=== PATIENT | male | born 1955 | race Caucasian/White ===

== ENCOUNTER 2016-08-06 13:18 | Inpatient (IN) | payer OTHER ==
[~2016-08-06] VITALS: Ht 174 cm; Wt 100.2 kg
[2016-08-06] VITALS (7 sets, daily range): BP systolic 194–237; BP diastolic 90–114; PULSE 71–91; RESP 16–20; O2SAT 94–97
[~2016-08-06 13:18] MED LIST: AMLO5TAB2 PO; ASPI325T32 PO; CLOP75TA28 PO; LEVO300T5 PO; METO50TA3 PO
[2016-08-06] MEDS ORDERED: Ondansetron 2 mg/mL 2 mL Inj ONE (13:33)
[2016-08-06 13:52] LABS: BASOPHILS % (AUTO) 0.6 % (0-3); EOSINOPHILS % (AUTO) 0.6 % (0-5); Mean Corpuscular Hemoglobin 27.5 pg (27.0-35.0); Mean Corpuscular Volume 81.7 fL (81-100); NEUTROPHILS % (AUTO) 83.1 % (40-74); Platelet Count 396 bil/L (150-400)
[2016-08-06 14:12] LABS: INR 0.88 ratio
[2016-08-06 14:21] LABS: TROPONIN T 0.025 ug/L (0.0-0.011)
[2016-08-06 14:33] LABS: Magnesium 1.9 mg/dL (1.6-2.6)
[2016-08-06] MEDS ORDERED: 0.9% Sodium Chloride 1,000 ML ONE (15:39)
--- NOTE | 2016-08-06 15:47 | ED.REPORT ---
HPI-Neurologic Deficit Date of Service Aug 06, 2016 ED Provider: Freddy Wilson MD Pt is a 60 year old male with a hx of DM II, HTN, CAD and a recent stroke 6 weeks ago presenting to the ED complaining of dizziness sudden onset last night at 1800. The pt reports that the symptoms began when he stood up after a bowel movement. Associated symptoms include nausea, feeling "unbalanced", clear thoughts but staggered actions, "separate" vision, diffuse weakness and numbness , fatigue. Denies headache, ringing in his ears. The dizziness is exacerbated by looking up and is constant and unchanged since onset. He denies taking Aspirin, glyburide or Metformin. The pt was supposed to have a follow up appointment with Dr. Rodriguez yesterday but missed the appointment. The pt is currently on glipizide 5mg, levothyroxine 300 mcg, Lipitor 80mg, metoprolol tartrate 50mg, OneTouch Ultra Blue In Vitro Strip Plavix 75 mg tablet. Nursing Notes Stated Complaint: DIZZY/NAUSEA Chief Complaint: General Complaint Nursing Notes Reviewed: Yes Allergies: Coded Allergies: Penicillins (Verified Allergy, Mild, Rash, 05/28/16) ONLY IN COMBINATION WITH CODEINE codeine (Verified Allergy, Mild, Rash, 05/28/16) ONLY IN COMBINATION WITH PCN Scheduled Amlodipine (Amlodipine) 5 Mg Tablet 5 MG PO DAILY Aspirin (Aspirin) 325 Mg Tablet 325 MG PO DAILY Clopidogrel (Clopidogrel) 75 Mg Tablet 75 MG PO DAILY Levothyroxine (Levothyroxine) 300 Mcg Tablet 300 MCG PO DAILY Metoprolol Tartrate (Metoprolol Tartrate) 50 Mg Tablet 50 MG PO BID General Time Seen by Provider: 15:31 Chief Complaint Off balance Hx Obtained From: Patient, Son Arrived By: Walk-in Sudden in Onset?: Yes Onset Occurred: Yesterday Symptom Duration: Since onset Progression Since Onset: Unchanged, Constant Severity: Current: No pain currently Severity: Maximum: No pain Associated with: Reports: Balance problem, Nausea, Vomiting, Weakness, Denies: Headache Related History: Reports: CVA/TIA, Diabetes mellitus Recent Healthcare: No recent hospitalization, Recent doctor visit Similar Sx Previous: Yes Risk Factors NIH Stroke Scale Level of Consciousness: Not alert, arousable (1) Ask Month & Age: Both questions right (0) Open/Close Eyes/Hand Force Adjustment Supervisor: Performs both tasks (0) Horizontal EO Movements: Partial gaze palsy (1) Visual Delgado: No visual loss (0) Facial Palsy: Normal symmetry (0) Right Arm Motor Drift (10s): No drift 10 sec (0) Left Arm Motor Drift (10s): No drift 10 sec (0) Right Leg Motor Drift (5s): No drift 5 sec (0) Left Leg Motor Drift (5s): No drift 5 sec (0) Limb Ataxia FNF/Heel-Wiley: Ataxia in 1 limb (1) Sensation (Arms/Legs/Face): Pinprick less sharp (1) Language Aphasia: No aphasia, normal (0) Dysarthria: No dysarthria, normal (0) Extinction/Inattention: Inatt visual/tactile (1) NIHSS Score: 5 Time NIHSS Performed: 15:35 CVA Risk Stratification Age >60 Diabetes mellitus EtOH use Hypertension Prior CVA/TIA Smoking RF Statements: Risk factors reviewed Past Medical History Past Medical History Stenosis of right internal carotid artery Left ventricular hypertrophy Previously on plavix Previous CVA (July 2014) with no neuro deficits [place] - in 2009 Peripheral vascular disease Hyper thyroidism Hyperglycemia ESRD Reports: Coronary artery disease, Diabetes mellitus, Hypertension Past Surgical History Stents Reports: Angioplasty, Appendectomy Smoking History Current Every Day Smoker Social History Alcohol Use: "Social" Ambulatory Status Independent Review of Systems Constitutional: Reports: Fatigue GI: Reports: Nausea, Vomiting Neurologic: Reports: Dizziness, Numbness, Weakness, Denies: Headache Complete sys rev & neg: except as marked. Ears / Nose / Throat: Denies: Ear ringing bilateral Physical Exam Initial Vital Signs Vital Signs (First) Date Time Temp Pulse Resp B/P Pulse Ox O2 Delivery O2 Flow Rate FiO2 08/06/16 13:22 36.3 87 16 197/106 97 08/06/16 15:25 Room Air Initial VS: Reviewed ENT: Mucous membranes moist, Conjunctiva normal, No scleral icterus Neck: Supple, Non-tender, Full range of motion Abdomen / GI: Soft, Non-tender, No guarding, No rebound, No distention Extremities: Vascular intact, Neuro intact, No swelling, No tenderness Skin: Warm, Dry, No cyanosis Psychiatric: Mood/affect normal, Behavior normal, Normal thought content General/Constitutional: Awake, Alert Respiratory / Chest: Atraumatic, Breath sounds NL, Breath sounds = bilat, No respiratory distress Cardiovascular: Regular rhythm, No gallop, No murmurs, No rubs Bilateral chronic bruit. Neurologic: Oriented X3, Speech NL Rotatory nystagmus. Medial deviation of left eye. No visual field cuts. Ataxia right hand only. Right hand, left face, left leg not as sensitive. Interpretation & Diagnostics Lab Results Interpretation Result Diagram: 08/06/16 1340 08/06/16 1340 Test 08/06/16 13:40 08/06/16 13:46 White Blood Count 11.5th/mm3 (3.8-10.1) Red Blood Count 5.75mil/mm3 (4.40-5.80) Hemoglobin 15.8g/dL (13.8-17.2) Hematocrit 47.0% (41.0-50.0) Mean Corpuscular Volume 81.7fL (81-100) Mean Corpuscular Hemoglobin 27.5pg (27.0-35.0) Mean Corpuscular Hemoglobin Concent 33.6% (32.0-37.0) Red Cell Distribution Width 14.8% (12.3-15.4) Platelet Count 396bil/L (150-400) Neutrophils (%) (Auto) 83.1% (40-74) Lymphocytes (%) (Auto) 10.4% (14-46) Monocytes (%) (Auto) 5.0% (4-12) Eosinophils (%) (Auto) 0.6% (0-5) Basophils (%) (Auto) 0.6% (0-3) Prothrombin Time 9.4sec (8.1-12.5) Prothromb Time International Ratio 0.88ratio Sodium Level 138mEq/L (134-144) Potassium Level 5.0mEq/L (3.5-5.2) Chloride Level 101mEq/L (97-108) Carbon Dioxide Level 21mmol/L (18-29) Blood Urea Nitrogen 53mg/dL (8-27) Creatinine 3.35mg/dL (0.76-1.27) Estimat Glomerular Filtration Rate 20mL/min (>59) Glucose Level 250mg/dL (60-99) Lactic Acid Level 1.7mmol/L (0.4-2.0) Calcium Level 9.4mg/dL (8.5-10.1) Magnesium Level 1.9mg/dL (1.6-2.6) Total Bilirubin 0.2mg/dL (0.0-1.2) Aspartate Amino Transf (AST/SGOT) 24U/L (0-50) Alanine Aminotransferase (ALT/SGPT) 41U/L (0-44) Alkaline Phosphatase 98U/L (25-160) Total Protein 7.5g/dL (6.4-8.4) Albumin 3.6g/dL (3.4-5.0) ECG Interpretation ECG Interpretation: Nonspecific T wave abnormalities. No change from May,. Time: 14:20 Interpreted by: ED physician Normal ECG Interpretation: Normal rate (74), Normal sinus rhythm CT Head Interpretation IMPRESSION: No acute intracranial abnormality. Dictated by: Cassidy Anderson M.D. on 08/06/2016 at 16:26 Study: Head CT no contrast Interpretation / Wet Read by: Interpret - Radiologist Re-Eval/Medical Decision Med Decision/Clinical Course 60-year-old smoker with a known intracranial vascular narrowing presents with disequilibrium and abnormalities of extraocular movements consistent with a posterior circulation stroke. He is already on Plavix. On the advice of neurology we have added aspirin. He continues to use tobacco. The patient is outside the time window for TPA or intravascular intervention. He will be admitted to the hospitalist service with neurology consultation. We re-started asprin. Re-Evaluation/Progress : Time of Eval: 18:33 Patient Status: Condition improved Re-Evaluation/Progress Note: Pt agrees with plan for admission. Consultation #1: Referral / Consult Name: Jose Ren MD Consulted With: Neurology Call Returned at: 16:32 Machine Grinder: Agrees with plan Consultation #2: Referral / Consult Name: Senait Adkins MD Consulted With: Hospitalist Call Returned at: 18:12 Machine Grinder: Will see patient, Agrees with plan, Accepts admit Counseled Regarding: Diagnosis, Lab results, Need for follow-up, When/why to return to ED Discharge & Departure Impression: Primary Impression: CVA (cerebral vascular accident) CVA mechanism: unspecified Qualified Code: I63.9 - Cerebral infarction, unspecified Disposition: ADMITTED TO HOSPITAL Discharge Condition All VS Reviewed: Yes Condition: Improved Referrals: Servando Rodriguez MD (PCP) Scribe Attestation Portions of this note were transcribed by Lena Meza. I, Dr. Wilson personally performed the history, physical exam and medical decision-making; I reviewed and confirmed the accuracy of the information in the transcribed note. Signed by : Felicita Laboy, 08/06/16 and 1833. copies to: Servando Rodriguez MD, Freddy Almeida MD Aug 06, 2016 15:47 LENA MEZA Aug 06, 2016 15:59
[2016-08-06] MEDS ORDERED: Ondansetron 2 mg/mL 2 mL Inj IVPUSH ONE (15:50)
--- NOTE | 2016-08-06 16:28 | DRSVH ---
PROCEDURE: CT BRAIN WITHOUT CONTRAST ([id number]) INDICATIONS: dizziness, vomiting TECHNIQUE: Noncontrast 4.5 mm thick angled axial sections acquired from the foramen magnum to the vertex, with c oronal reformats. COMPARISON: [facility], CT, CT BRAIN WO CON, 05/28/2016, 7:43. [facility], CT, BRAIN W/O CONTRAST, 07/13/2014, 18:02. FINDINGS: Image quality: Excellent. CSF spaces: Basal cisterns are patent. No extra-axial fluid collections. The ventricles are symmet aleksandr in size and shape. Brain: No intracranial bleeds or masses. There is cerebral volume loss for age, with resultant vent ricular and sulcal prominence. There are periventricular and deep white matter chronic small vessel ischemic changes. There is intracranial internal carotid artery atherosclerosis. Skull and face: Calvarium and visualized facial bones appear intact, without suspicious lesions. Sinuses: Visualized sinuses and mastoids are clear. IMPRESSION: No acute intracranial abnormality. Dictated by: Cassidy Anderson M.D. on 08/06/2016 at 16:26 Approved by: Cassidy Anderson M.D. on 08/06/2016 at 16:26
[2016-08-06] MEDS ORDERED: Alum-Mag Hydrox-Simeth 30 mL Suspension PO PRN (18:35)
[2016-08-06] MEDS ORDERED: Promethazine Inj 12.5 MG in 0.9% Sodium Chloride 50 ML IV PRN (20:10)
[2016-08-06] MEDS ORDERED: 0.9% Sodium Chloride 250 ML ONE (20:32)
[2016-08-06] MEDS: Labetalol 5 mg/mL 4 mL Inj IVPUSH PRN (21:54)
[2016-08-06] MEDS ORDERED: 0.9% Sodium Chloride 1,000 ML IV ONE ×2 (22:35)
--- NOTE | 2016-08-06 22:56 | PCM.HPMED ---
Subjective Date of Service Aug 06, 2016 Primary Provider: Admitting Physician: Senait Adkins MD Primary Care Physician: Servando Rodriguez MD Attending Physician: Senait Adkins MD Chief Complaint: Left sided weakness and dysequilibrium History of Present Illness: 60 year old male with a PMH significant for hypertension, CAD s/p 4 stents, PVD , bilateral carotid stenosis, and prior CVA presents with left sided weakness and 24h of ongoing dizziness with N/V. Pt states that he was feeling alright until he had a bm and arose from the toilet. Upon standing he became dizzy and his left leg was unable to support him and he leans to the left. He states that he also had left arm weakness. He has experienced this in the past with hx of CVA and recent TIA in may 2016, both of which were nearly identical to this presentation. Pt states that he slept through the night and the symptoms resolved. He presents today because the nauseas and vomiting continue and he has not been able to maintain adequate hydration. He denies fever, chills, has chronic diarrhea and hx of dysconjugate gaze. Denies other ROS. Pt has known Carotid stenosis and has not been evaluated yet for intervention. CT of the head was negative for acute bleed; Stroke protocol imaging has been postponed or avoided due to severe kidney impairment, and the patient states that he was suppose to see Dr. Narvaez but couldn't get to the office due to this illness. Pt has chronically elevated troponin, and creatinine is now 3.35 from baseline in the mid-upper 2's, and he has a mild leukocytosis. Review of Systems: A comprehensive review of systems was conducted with the patient and found to be negative except as above in the History of Present Illness. Allergies Coded Allergies: Penicillins (Verified Allergy, Mild, Rash, 05/28/16) ONLY IN COMBINATION WITH CODEINE codeine (Verified Allergy, Mild, Rash, 05/28/16) ONLY IN COMBINATION WITH PCN Home Medications Aspirin 325 mg daily Lipitor 80 mg daily Metoprolol tartrate 50 mg twice a day Levothyroxine 300 g daily PMH Type 2 Diabetes Mellitus diet controlled Hypertension CVA (2014) with no residual deficit Coronary artery disease s/p stent x 4 Hypothyroidism Hyperlipidemia Hx of inferior NM Stage 4 CKD Surgical History 4 cardiac stents placed at [facility] 2006 Family History Mother of heart disease at age 62 Father of Alzheimer's at age 65 Social History Hx Alcohol Use: Yes ("occasionally") Hx Substance Use: No Hx Tobacco Use: Yes Smoking Status: Current Every Day Smoker Living Arrangement: Alone Exam Vital Signs Vital Sign - Last Date Time Temp Pulse Resp B/P Pulse Ox O2 Delivery O2 Flow Rate FiO2 08/06/16 18:55 36.7 78 20 204/97 94 Room Air Exam Gen: NAD, laying comfortably in bed on his left side HEENT: NCAT. PERRL No sclera icterus. Membranes dry. Neck supple with full ROM. Cardio: RRR, no m/g/r. Carotid bruits present bilaterally. Lungs: CTA bilaterally. No wheezes/rales/rhonchi. Abd: Soft, NT/ND, +BS Ext: No edema, no clubbing. Pulses intact. Skin: Warm, dry, no overt bruising or rash. Psych: mood and affect appropriate for circumstance Neuro: A&Ox3. CN 2-12 intact with questionable nystagmus to the right and dysconjugate gaze. Muscle strength 5/5 in upper and lower extremities with the exception of 5-/5 dorsal flexion in left foot; [id number] appropriate; no pronator drift; memory intact; cognition intact although education level is likely subpar Lab and Diagnostics Result Diagram: 08/06/16 1340 08/06/16 1340 Assessment & Plan Patient is a 60-year-old male with history of CVA in 2014 and TIA in 05/2016, diet controlled type II diabetes, hypertension, stage 4 CKD second to DM and smoking who presented to the emergency department with sudden onset of nausea with vomiting, lightheadedness, and disequilibrium. 1. Questionable TIA vs dysequilibrium, present on admission, improving - Pt presents with complaint of left sided weakness that has mostly resolved after 24 hours - Pt has known carotid stenosis from US done 05/29/16 - Brain CT shows no hemorrhage - Stroke protocol MRI unavailable due to Stage 4 ckd - Aspirin 325 mg daily - Plavix 75 mg daily - MRI without contrast tomorrow - Dr Ren will see patient in AM; appreciate his expertise 2. Acute on chronic kidney injury, present on admission - Baseline creatinine around mid 2's - Pt presents with chronic diarrhea and acute vomiting leading to pre-renal azotemia - Fluid resuscitation with 2-3 L NS - Repeat BMP in am - Consider Nephro consult 3. Hypertensive - No permissive HTN as this started > 24 hours ago; currently SBP > 200 - Labetalol 10-20 mg PRN for SBP > 180 - Will reassess after Labetalol 4. Nausea/vomiting; poa ongoing - Started yesterday around the time of the TIA/dysequilibrium - Zofran and promethazine for control - Famotidine 20mg BID 5. Hypothyroidism, chronic - Continue levothyroxine 6. Diabetes mellitus type II, non-insulin using, present on admission, active - Patient stopped taking metformin and glyburide due to diet controlled outpatient - A1c 6.9 in Nov - Low dose correctional 7. Tobacco use disorder - Patient doing better on patches but having a rash; recently smoked a couple cigarettes 8. Elevated troponin - Likely due to chronic kidney disease - EKG in the AM - Trend 9. DVT prophylaxis - Heparin subcu Patient is admitted under observation status with expected length of stay less than 2 midnights due to severity of presenting symptoms, risk of adverse event, and complexity of treatment plan. Pain Evaluation: Adequate Pain Control GI Prophylaxis: H2 olga Resuscitation Status: DNR/DNI:Do Not Resuscitate/Intubate Attending Statement Pt seen and examined by myself and agree with above plan. Virgil Schwarz DO Aug 06, 2016 20:53 Shanna Cook MD Aug 07, 2016 06:22
[2016-08-07] VITALS (9 sets, daily range): BP systolic 165–204; BP diastolic 78–93; PULSE 58–76; RESP 16–18; O2SAT 95–97
[2016-08-07] MEDS: 0.9% Sodium Chloride 1,000 ML IV SCH ×2 (02:06→09:39)
[2016-08-07] MEDS: Insulin Human REGular 300 Unit/3 mL Inj SUBQ SCH ×4 (02:30→20:30)
[2016-08-07] MEDS: Labetalol 5 mg/mL 4 mL Inj IVPUSH PRN (04:42)
--- NOTE | 2016-08-07 05:07 | NUR ---
Admit: Pt arrived just prior to shift change to room 3026; no family at bedside. Pt AOx3, neuros intact. BP elevated, new order for BP medication obtained. RA, tele placed. Pt c/o nausea, medication administered. Pt pleasant and cooperative with care.
--- NOTE | 2016-08-07 05:34 | NUR ---
Home Medication List: Pt did not have a home medication list with him, stated he stopped taking all meds except his thyroid medication per PCP instructions. Will pass to dayshift to verify this information.
--- NOTE | 2016-08-07 05:35 | NUR ---
HTN/NOC Shift: Pt BP upon arrival fro ED 204/97, increased to 218/97. Medication was given during the night, pt remained above 180 systolic most of the night, pt asymptomatic; MD aware. Pt denied pain, chest pain and SOB. Pt pleasant and cooperative with care. Stroke booklet given and teaching done by RN.
[2016-08-07 06:36] LABS: BASOPHILS % (AUTO) 0.4 % (0-3); EOSINOPHILS % (AUTO) 0.8 % (0-5); MONOCYTES % (AUTO) 8.8 % (4-12); Mean Corpuscular Hemoglobin 27.6 pg (27.0-35.0); Mean Corpuscular Volume 82.9 fL (81-100); NEUTROPHILS % (AUTO) 78.9 % (40-74); Platelet Count 322 bil/L (150-400)
[2016-08-07 06:47] LABS: INR 0.9 ratio
[2016-08-07] MEDS: Ondansetron 2 mg/mL 2 mL Inj IVPUSH PRN (08:23)
[2016-08-07] MEDS ORDERED: Promethazine Inj 25 MG in 0.9% Sodium Chloride 50 ML IV PRN (12:28)
--- NOTE | 2016-08-07 13:03 | DRSVH ---
[facility] [address] [place] [address] Echocardiogram Report Name: BEN HALL Date: 08/07/2016 Height: 69 in Hospital Exam Location: [facility] Weight: 221 lb Gender: Male BSA: 2.2 m2 : 1955 Age: 60 yrs BP: 179/85 mmHg Reason For Study: STROKE Ordering Physician: HOSPITALIST [facility] Performed By: Hernan Holley Referring Physician: Dr. Shoaib Rodriguez Interpretation Summary Left ventricular wall thickness is mildly increased. Left ventricular systolic function is mildly reduced. The ejection fraction is estimated to be 45-50%. There is inferior wall moderate hypokinesis. Assessment of diastolic parameters indicates a relaxation abnormality of the left ventricle, consistent with normal filling pressures. The right ventricle is normal in size and function. Pulmonary artery pressures cannot be estimated because of the lack of a measurable TR jet velocity. The left atrium is mildly dilated. Right atrial size is normal. There is no significant valvular heart disease. The aortic root is normal size. No obvious source for cardioembolic stroke. No significant changes since prior study on 07/14/2014. Procedure: A two-dimensional transthoracic echocardiogram with color flow and Doppler was performed. The study quality was technically good. Comparison is made with the echocardiogram of 07/14/14. The patient was in normal sinus rhythm during the exam. Left Ventricle: The left ventricle is normal in size. Left ventricular wall thickness is mildly increased. Left ventricular systolic function is mildly reduced. The ejection fraction is estimated to be 45-50%. There is inferior wall moderate hypokinesis. Assessment of diastolic parameters indicates a relaxation abnormality of the left ventricle, consistent with normal filling pressures. Right Ventricle: The right ventricle is normal in size and function. Atria: The left atrium is mildly dilated. Right atrial size is normal. The interatrial septum is intact with no evidence for an atrial septal defect. Mitral Valve: The mitral valve is normal in structure and function. The mitral valve chordae are thickened and/or calcified. There is trace mitral regurgitation. Aortic Valve: The aortic valve is normal in structure and function. The aortic valve is trileaflet. The aortic valve opens well. No aortic regurgitation is present. Tricuspid Valve: The tricuspid valve is normal in structure and function. There is a trace or physiologic amount of tricuspid regurgitation. Pulmonary artery pressures cannot be estimated because of the lack of a measurable TR jet velocity. Pulmonic Valve: The pulmonic valve is normal in structure and function. There is trace pulmonic regurgitation. There is no significant valvular heart disease. Great Vessels: The aortic root is normal size. The dimensions of the ascending aorta are normal. The pulmonary artery is normal size. The IVC is of normal diameter and collapses greater than 50% with a sniff. This suggests a low right atrial pressure of 3 mm Hg. Pericardium/ Pleura There is a trivial pericardial effusion noted. There is no pleural effusion. MMode/2D Measurements & Calculations LVIDd: 5.4 cm LA dimension: 3.7 cm RA long axis: 4.3 cm Ao root diam LVIDs: 4.1 cm FS: 25.5 % LA A2 area: 28.1 cm RA area: 14.2 cm Aortic Jxn EPSS: 0.77 cm LA A4 area: 19.8 cm RA vol: 40.4 ml IVSd: 1.1 cm LA length (vol): 6.3 cm RA : 18.7 ml/m2 asc Aorta LVPWd: 1.2 cm LA vol: 75.2 ml Diam: 3.4 cm LA vol index: 34.9 ml/m IVC diam: 2.0 cm EDV(MOD-sp2) LV dickson. diameter/BSA LV sys. diameter/BSA (cm/m^2): 2.5 (cm/m^2): 1.9 Doppler Measurements & Calculations Ao V2 max: 116.1 cm/sec MV E max vaibhav MV E/A: 0.71 PA V2 max Ao max P.4 mmHg : 53.4 cm/sec Med Peak E' Vaibhav : 99.6 cm/sec Ao mean P.1 mmHg MV A max vaibhav PA mean PG : 75.6 cm/sec E/E' med: 14.0 Lat Peak E' Vaibhav PA Accel Time : 0.13 sec E/E' lat: 11.8 Pulm A Revs Dur MV A dur: 0.14 sec MV dec time: 0.25 sec Ao V2 mean PA V2 mean E/e' average : 85.3 cm/sec : 68.7 cm/sec Ao V2 VTI PA pr(Accel) : 28.4 cm : 22.4 mmHg Pulm A Revs Dur - MV A Dur: -0.07 msec Reading Physician:PM
--- NOTE | 2016-08-07 15:46 | DRSVH ---
PROCEDURE: MRI BRAIN WITHOUT CONTRAST ([id number]) INDICATIONS: Stroke TECHNIQUE: Noncontrast axial T1 spin echo, axial T2 fast spin echo, sagittal and axial FLAIR, coronal T2 fast sp in echo, axial gradient echo, axial diffusion and ADC through the brain. COMPARISON: [facility], CT, CT BRAIN WO CON, 08/06/2016, 16:17. [facility], MR, MR BRAIN WO CON, 05/28/2016, 9:18. FINDINGS: Image quality: Excellent. CSF Spaces: Basal cisterns are patent. No extra-axial fluid collections. Ventricles are normal in size and shape. Brain: No intracranial masses or hemorrhage. Farrar/white matter interface is normal. Brainstem appe ars normal. Diffusion-weighted images demonstrate no acute ischemic above the tentorium and within t he medial aspect of the left cerebellar peduncle there is a 8 x 9 mm focus of mild acute or subacute ischemic insult. No chronic ischemic insults. Normal intravascular flow voids are present. Skull and face: Calvarium has normal marrow signal. Orbits appear normal. Sinuses: Sinuses and mastoids are clear. IMPRESSION: The medial aspect of the left cerebellar peduncle shows a small 8 x 9 mm area of acute or subacute ischemic injury without mass effect or hemorrhage. This presumably is a manifestation of m icrovascular atherosclerotic change. Dictated by: Tobin Rosenberg M.D. on 08/07/2016 at 15:44 Approved by: Tobin Rosenberg M.D. on 08/07/2016 at 15:44
--- NOTE | 2016-08-07 15:49 | PCM.PNMED ---
Subjective Date of Service Aug 07, 2016 Subjective Patient states he continues to feel quite nauseated particularly when he rolls or gets up. Has not vomited since being admitted. Denies GILL, CP, SOB, fevers or chills. Son at bedside, quite concerned. Exam Vital Signs Vital Sign - Last Date Time Temp Pulse Resp B/P Pulse Ox O2 Delivery O2 Flow Rate FiO2 08/07/16 08:00 76 08/07/16 05:24 179/85 08/07/16 04:30 36.8 16 96 Room Air Intake and Output 08/06/16 08/06/16 08/07/16 Cumulative From/Thru 14:59 22:59 06:59 08/06/16 13:22 - 08/07/16 06:35 Intake Total 1000 ml 200 ml 1200 ml Output Total 1000 ml 1000 ml Balance 1000 ml -800 ml 200 ml Intake Oral 200 ml 200 ml IV Total 1000 ml 1000 ml Output Urine Total 1000 ml 1000 ml Exam Gen: NAD, laying comfortably in bed on his right side HEENT: NCAT. PERRL No sclera icterus. Membranes dry. Neck supple with full ROM. Cardio: Regular rate and rhythem, no murmurs appreciated. Carotid bruits present bilaterally. Lungs: CTAB Abd: Soft, obese, non-tender with normal bowel tones Ext: No edema, no clubbing. Skin: Warm, dry and intact Neuro: CN 2-12 grossly intact with significant horizontal nystagmus with dysconjugate gaze. Muscle strength on upper and lower extremities 5/5, Psych: in mild distress, normal speech IVs and Medications Medications Reviewed: Medications were reviewed in detail Lab and Diagnostics Result Diagram: 08/07/1660608/07/16606 Assessment & Plan Patient is a 60-year-old male with history of CVA in 2014 and TIA in 05/2016, diet controlled type II diabetes, hypertension, stage 4 CKD second to DM and smoking who presented to the emergency department with sudden onset of nausea with vomiting, lightheadedness, and disequilibrium. 1. Questionable TIA vs dysequilibrium, present on admission, improving - Pt presents with complaint of left sided weakness that has mostly resolved after 24 hours - Pt has known carotid stenosis from US done 05/29/16, has had no intervention for this - Brain CT shows no hemorrhage - Stroke protocol MRI unavailable due to Stage 4 ckd - Aspirin 325 mg daily - Plavix 75 mg daily - significant horizontal nystagmus on physical exam, dizziness highly suspicious for BPPV - Echocardiogram pending results - MRI without contrast today pending results - Dr Ren of neurology consulted, appreciate his expertise - OT/PT/swallow eval ordered 2. Acute on chronic kidney injury, present on admission, stable. - Baseline creatinine around mid 2's. last labs from PCP on 06/24 for hospital follow up at 3.23 - highly suspicious of pre-renal azotemia due to recent episodes of vomiting - Patient missed appointment with Dr. Narvaez due to current illness - Avoid nephrotoxic meds - IVF 100mL//h - Repeat BMP in am - Nephro consulted, appreciate time and expertise 3. Hypertensive - No permissive HTN as this started > 24 hours ago; currently SBP > 200 - was stablized with Labetalol 10-20 mg PRN for SBP > 180 - now put back on his home dosing of metoprolol tartrate 50mg BID - Hydralazine 10mg Q6H PRN for SBP above 160 4. Nausea/vomiting; poa ongoing - Started 2 days ago around the time of the TIA/dysequilibrium - Zofran and promethazine for control - Famotidine 20mg BID - Meclizine 25mg QID PRN added 5. Hypothyroidism, chronic - Continue levothyroxine 6. Diabetes mellitus type II, non-insulin using, present on admission, active - Patient stopped taking metformin and glyburide due to diet controlled outpatient - A1c 6.9 in Nov - Low dose correctional 7. Tobacco use disorder - Patient doing better on patches but having a rash; recently smoked a couple cigarettes 8. Elevated troponin - Likely due to chronic kidney disease - Trending down 9. DVT prophylaxis - Heparin subcu Dispo: Anticipate discharge once patient is medically stable most likely to be in 2-3 days. GI Prophylaxis: H2 olga Resuscitation Status: DNR/DNI:Do Not Resuscitate/Intubate Attending Statement The patient was seen and examined together with Dr. Ashford on 08/07/2016 and I agree with the history, exam and plan as outlined in the note above. Leisa Ashford DO Aug 07, 2016 15:04 Kian Gamez MD Aug 08, 2016 13:44
--- NOTE | 2016-08-07 16:31 | NUR ---
Social Work-initial assessment: Data:EMR reviewed. Pt is a 60 y/o male who was admitted on 08/06/16 for acute CVA per H&P. Pt's PCP is Dr. Rodriguez and insurance is [employer]. SW met with pt at bedside to discuss discharge planning, SW role explained. Pt resides at home alone where he remains independent with ADLs. Pt drives and has no HH Or SNF history. Pt has never completed DPOA/ advanced directive and is not interested in information. Pt does not anticiapte any discharge needs. P/OT/ST all to see pt once ordered. Pt's son Curt [phone] to provide transport home. SW will continue follow. Assessment:Pt who is independent at baseline. Plan:Pt to likely discharge home when medically stable. SW to follow up after therapies to see pt if any needs arise. SW will continue follow. LALITA Macias
--- NOTE | 2016-08-07 19:16 | CONS ---
[address] [address] CONSULTATION REPORT PATIENT: BEN HALL : 1955 MR#: [id number] ADMIT: 08/06/2016 JOB ID: [id number] DATE OF SERVICE: 08/07/2016 REQUESTING PHYSICIAN: Dr. Adkins. REASON FOR CONSULTATION: Management of chronic kidney disease. CHIEF COMPLAINT: Left-sided weakness and dizziness. PRESENT ILLNESS: This is a 60-year-old male with significant past medical history of type 2 diabetes, hypertension, CVA, coronary artery disease status post stent placement, dyslipidemia, hypothyroidism, peripheral vascular disease, bilateral carotid stenosis presented to the hospital with complaint of dizziness. I have gathered history from the medical records. He refused to give me his history. He said he has been asked so many times. The patient has some dizziness, left-sided weakness and, later on, developed nausea and vomiting. He came to the hospital for further investigation. PAST MEDICAL HISTORY: He has significant past medical history of CVA. He had MRI of brain without contrast that showed media aspect of left cerebellar Peduncle showing a small 8 x 9 mm area of acute or subacute ischemic injury without mass effect or hemorrhage. CT brain without contrast showed no acute intracranial abnormality. He came in with serum creatinine of 3.35. In May of last year, his serum creatinine was 3.0. In January 2016, his serum creatinine was 2.5. The patient was told that he has a chronic kidney disease. However, he has not seen any air tester. His initial blood pressure was 197/106 and went up to 237/103. He received metoprolol and his current blood pressure is 179/85. At the moment, he is feeling a little bit better. He remains having nausea, but he has no vomiting, no headaches, no shortness of breath, no blurred vision, no weakness. He has no dysuria, no hematuria. He complains of some difficulty urinating with a history of hesitancy. 1. Type 2 diabetes. 2. Hypertension. 3. CVA in 2014. 4. Coronary artery disease status post stent placement. 5. Peripheral vascular disease. 6. Hypothyroid. 7. Dyslipidemia. 8. History of PR. 9. Stage 4 chronic kidney disease. PAST SURGICAL HISTORY: Status post coronary artery stent placement. FAMILY HISTORY: Positive for heart disease and Alzheimer's. SOCIAL HISTORY: The patient is a chronic smoker. Drinks alcohol occasionally. ALLERGIES: PENICILLIN and CODEINE. REVIEW OF SYSTEMS: A 14-point review of systems was performed. PHYSICAL EXAMINATION: Vitals: Temperature 36.8, pulse 75, respiratory 16, blood pressure 179/85. General appearance: Awake, alert, oriented x3. No acute distress. HEENT: No pallor, no jaundice, no JVD. No lymphadenopathy. No thyroid enlargement. Heart: Regular rhythm. Normal S1, S2. No murmurs, rubs, or gallops. Lungs: Clear to auscultation bilaterally. No wheezing. No rhonchi. Abdomen is soft, active bowel sounds. Extremity: No edema, cyanosis or clubbing of fingers. Weak pedal pulses. LABORATORY: Sodium is 142, potassium 4.7, chloride 110, bicarb 20, BUN 45, creatinine 3.13, glucose 129, calcium 81, albumin 2.7. ASSESSMENT: 1. Acute kidney injury on chronic kidney disease, stage 4. The etiology of acute kidney injury is likely due to prerenal azotemia given history of nausea vomiting. Will need to also rule out obstructive uropathy given history of difficulty urinating. At this point, I will put him on half normal saline at 80 cc/hour. Discontinue lisinopril for now. We will check his UA, urine protein and creatinine ratio. Due to history of poorly controlled hypertension, I will order a renal artery duplex to rule out renal artery stenosis. 2. The etiology of chronic kidney disease rather multifactorial including hypertensive nephrosclerosis, type 2 diabetes with nephropathy and possible renovascular disease. 3. Dizziness, suspected transient ischemic attack. 4. Hypertension with hypertensive nephrosclerosis. 5. Type 2 diabetes. 6. History of proteinuria. PLANS: 1. Start half normal saline 80 cc/hour. 2. Discontinue lisinopril. 3. Start Norvasc 5 mg once a day. 4. Continue metoprolol 50 mg twice a day. 5. Order renal artery duplex to rule out renal artery stenosis. 6. Order a UA, urine protein/creatinine ratio. 7. Check postvoid residual. 8. Avoid nephrotoxins. 9. Adjust medications per GFR. 10. Will check PTH and vitamin D level. Thank you for allowing me to participate in the care of your patient.
[2016-08-07] MEDS: hydrALAZINE 20 mg/mL Inj IV PRN (23:12)
[2016-08-08] VITALS (9 sets, daily range): BP systolic 140–213; BP diastolic 58–95; PULSE 55–72; RESP 16–18; O2SAT 94–97
[2016-08-08] MEDS: Insulin Human REGular 300 Unit/3 mL Inj SUBQ SCH ×2 (02:30→08:20)
[2016-08-08] MEDS: hydrALAZINE 20 mg/mL Inj IV PRN ×2 (06:33→15:36)
[2016-08-08 06:38] LABS: BASOPHILS % (AUTO) 0.9 % (0-3); EOSINOPHILS % (AUTO) 2.4 % (0-5); MONOCYTES % (AUTO) 8.3 % (4-12); Mean Corpuscular Volume 82.9 fL (81-100); NEUTROPHILS % (AUTO) 67.6 % (40-74); Platelet Count 325 bil/L (150-400)
[2016-08-08 06:59] LABS: Phosphorus 3.7 mg/dL (2.5-4.9)
--- NOTE | 2016-08-08 07:25 | NUR ---
Hypertension BP 180s/80s, up to 199/93.Mild headache. Metoprolol given at HS, Hydralazinex2 given. last given this am around 0630, will recheck BP.
--- NOTE | 2016-08-08 08:19 | CONS ---
[address] [address] CONSULTATION REPORT PATIENT: BEN HALL : 1955 MR#: [id number] ADMIT: 08/06/2016 JOB ID: [id number] DATE OF SERVICE: 08/07/2016 CHIEF COMPLAINT: Vertigo HISTORY OF PRESENTING ILLNESS: The patient is a pleasant 60-year-old right-handed man with multiple medical problems, who presented with acute onset of vertigo and nausea and imbalance. He reports worsening of the vertigo when he stands up and he feels ataxic. I reviewed his MRI of the brain with him in detail which demonstrated a left cerebellar peduncle stroke 8 x9 mm without mass effect or hemorrhage. The echocardiogram was also reviewed which demonstrated left ventricular thickness is mildly increased. Left ventricular systolic function is mildly reduced. The ejection fraction is estimated to be 45%-50%. There is inferior wall moderate hypokinesis. Assessment of diastolic parameters indicates a relaxation abnormality of the left ventricle consisting of normal filling pressures. The right ventricle is normal in size and function. Pulmonary artery pressures cannot be estimated because of the lack of a measurable TR jet velocity. The left atrium is mildly dilated. Right atrial size is normal. There is no significant valvular heart disease. The aortic root is normal in size. No obvious source of cardioembolic stroke. No significant changes since prior study on July 14, 2014. He reports that he has not noted any other new neurologic symptoms. We discussed the differential diagnosis for his symptoms in detail. Although a peripheral etiology is certainly possible based on the magnetic resonance imaging study of his brain my suspicion is that the left cerebellar peduncle stroke is the likely etiology of his new onset vertigo and ataxia. PAST MEDICAL HISTORY: Stroke with no residual deficit Type II diabetes mellitus diet controlled Hypertension Coronary artery disease status post 4 stents Hypothyroidism Hyperlipidemia History of an inferior wall myocardial infarction Stage IV chronic kidney disease PAST SURGICAL HISTORY: Status post 4 cardiac stents placed in 2006 FAMILY HISTORY: History of Alzheimer's disease in his father at age 65 otherwise no neurologic disorders HOME MEDICATIONS: Aspirin 325 mg daily Lipitor 80 mg daily Metoprolol 50 mg twice a day Levothyroxine 300 g daily ALLERGIES: Penicillin Codeine SOCIAL HISTORY: Occasional alcohol; no drugs; smokes tobacco every day REVIEW OF SYSTEMS: A complete review of systems was performed and was remarkable for about noted. PHYSICAL EXAMINATION: General: He is well-developed well-nourished man in mild acute distress Head: Normocephalic atraumatic neck supple no carotid bruits were auscultated chest clear to auscultation heart regular rate and rhythm abdomen soft nondistended nontender extremities no cyanosis clubbing or edema Neurologic examination Mental status He is awake alert oriented 3 speech is clear and fluent with no dysarthria noted no aphasia. Cranial nerves: Pupils equal round reactive to light. Nonsustained bilateral horizontal nystagmus. Face appeared symmetrical facial sensation was intact to light touch and temperature auditory sensation was intact to finger rub palatal elevation was symmetrical and midline her client mastoids and trapezii were 5/5 bilaterally. Visual mayes were full to confrontation. Motor: Muscle strength 5/5 throughout. Normal tone and bulk Sensation: Intact light touch and temperature. Coordination: There is ataxia on finger to nose on the left side. Finger to nose on the right did not demonstrate any ataxia or dysmetria Deep tendon reflexes were 2+ and symmetrical plantars were equivocal bilaterally Gait: He reports that he felt dizzy when he was standing up and a gait examination was deferred NIH stroke scale: 1 IMPRESSION: Cerebellar stroke. RECOMMENDATIONS: Although it is certainly possible that this stroke is secondary to his underlying diabetes, hypertension, and hyperlipidemia, other possibilities do include a cardioembolic etiology, and in light of this, he may benefit from obtaining a full cardiac workup including a transesophageal echocardiogram, a Holter monitor study which may be performed as an outpatient, and perhaps even a Zio patch (if the Holter monitor study is unrevealing) to exclude the possibility of paroxysmal atrial fibrillation or another cardioembolic etiology. As per the history, this event appears to have occurred on Plavix and for this I recommend that he be placed on aspirin and Plavix, aspirin 81 mg, for three months and then continue just on Plavix. Although I would like to obtain a magnetic resonance angiogram or a CT angiogram, the patient's poor renal function precludes this and, therefore, if a cardioembolic etiology is not found, my suspicion is that he may have intracranial stenosis. We discussed the side effects of dual antiplatelet therapy that his aspirin and Plavix in detail. Given that his renal function precludes obtaining a computed tomography angiogram were magnetic resonance angiogram at this point, given the possibility that he may have intracranial posterior circulation stenosis, recommend dual antiplatelet therapy for 3 months and then continuing on Plavix thereafter. Reviewed side effects in detail. Questions were sought an answer. The patient expressed understanding. Patient education was provided. Certainly extracranial stenosis is also a possibility. Although a carotid duplex would be revealing of any extracranial carotid artery stenosis in this situation, the stroke is likely reflective of posterior circulation, either cardioembolic or intracranial/extracranial stenosis versus a lacunar etiology, although a lacunar etiology appears less likely. Requesting provider for this patient is Dr. Freddy Wilson. Thank you again for kindly referring this patient to me, Dr. Wilson. Please feel free to contact me with any questions or concerns. LOUANN
--- NOTE | 2016-08-08 08:43 | NUR ---
Evaluation completed. Rec: Thin/Regular. Medication as tolerated. RN aware. VACCINE MANAGER to sign off. Please go to "Notes" then click on "Assessments and Notes" (bottom left corner of screen). Then select appropriate discipline tab on top of screen.
--- NOTE | 2016-08-08 11:50 | NUR ---
Off Unit/BP: Patient transported off unit for US @ approx 0830 accompanied by transporter. BP elevated to 202/80, BP medications administered by college athlete prior to transport. radiocommunications technician notified of transport. Notified by PT that BP continues to be elevated. PT states she will notify ; as they are in hallway. Order received for Minoxidil. Addendum: 08/08/16 at 1541 by MALGORZATA MCCORD RN Orders received for Nifedipine. Administered Minoxidil and Nifedipine. BP 169/74. HR 60s. IV Hydralazine administered. Will follow.
--- NOTE | 2016-08-08 12:07 | DRSVH ---
PROCEDURE: US RENAL WITH ARTERIES DUPLEX DOPPLER SONOGRAM, LIMITED INDICATIONS: uncontrolled HTN, NAKIA TECHNIQUE: Real time scanning was performed of both kidneys, followed by Color and pulsed Doppler in terrogation of the renal vessels. COMPARISON: None. FINDINGS: Aortic peak systolic velocity: 101.0 cm/s. Right side: Farrar-scale imaging: Kidney is 12.5 cm long; renal cortical thickness is 1.2 cm. No hydronephrosis. No nephrolithiasis. Renal cortex is normal in echogenicity. No suspicious solid renal masses. Proximal renal artery peak systolic velocity: 77 cm/s. Mid renal artery peak systolic velocity: 187 cm/s. Distal renal artery peak systolic velocity: 68 cm/s. Renal vein: Patent, without thrombus. Peak renal/aortic ratio (RAR): 1.86. Left side: Farrar-scale imaging: Kidney is 12.8 cm long; renal cortical thickness is 1.6 cm. No hydronephrosis. No nephrolithiasis. Renal cortex is normal in echogenicity. No suspicious solid renal masses. Proximal renal artery peak systolic velocity: 154 cm/s. Mid-renal artery peak systolic velocity: 154 cm/s. Distal renal artery peak systolic velocity: 103 cm/s. Renal vein: Patent, without thrombus. Peak renal/aortic ratio (RAR): 1.52. IMPRESSION: 1. Tardus parvus waveforms are visualized within the bilateral renal arteries most notably within the hilar regions and the medullary regions consistent with bilateral renal artery stenosis. Dictated by: Eliane Farnsworth M.D. on 08/08/2016 at 12:05 Approved by: Eliane Farnsworth M.D. on 08/08/2016 at 12:05
[2016-08-08] MEDS: NIFEdipine 30 mg ER24 Tablet PO SCH ×2 (13:56→21:05)
--- NOTE | 2016-08-08 15:39 | NUR ---
NUTRITION ASSESSMENT: ASSESS: 60 YO male admitted for possible TIA with ongoing nausea. Pt is currently undergoing procedures at this time. PMHx: HTN, DM type 2, CVA , Stage IV kidney disease, CAD, inferior [place]. LABS: Reviewed. BUN 40, Cr 2.90, Alb 2.7. MEDS: Reviewed. GI: No BM reported at this time. CURRENT WT: 100.2 kg. IBW: 71.36 kg. DIET: Diabetic. Pt currently refusing all meals. EST. NEEDS (BMI/STAGE IV KIDNEY DISEASE): Kcals: 2628-6013 kcals (20-25 kcals/kg BW) Protein: 55-70 g protein (0.8-1.0 g/kg IBW) NUTRITION DIAGNOSIS: 1.) Inadequate oral intake related to unknown etiology as evidenced by current refusal of all meals. NUTRITION INTERVENTION: 1.) Consider adding supplements if po intake does not improve in the next 2-5 days. MONITOR / EVAL: PO intake, labs, nutritional status. Follow per moderate nutritional risk guidelines.
--- NOTE | 2016-08-08 15:46 | PCM.PNMED ---
Subjective Date of Service Aug 08, 2016 Subjective No overnight events. Patient reports he has experience mild nausea, much improved. Has not had emesis since yesterday morning. Denies CP, SOB, fevers or chills. Exam Vital Signs Vital Sign - Last Date Time Temp Pulse Resp B/P Pulse Ox O2 Delivery O2 Flow Rate FiO2 08/08/16 13:58 36.4 55 18 194/91 97 Room Air Intake and Output 08/07/16 08/07/16 08/08/16 Cumulative From/Thru 14:59 22:59 06:59 08/06/16 13:22 - 08/08/16 06:30 Intake Total 100 ml 1065 ml 2365 ml Output Total 825 ml 475 ml 2300 ml Balance -725 ml 590 ml 65 ml Intake Oral 100 ml 300 ml IV Total 1065 ml 2065 ml Output Urine Total 825 ml 475 ml 2300 ml Exam Gen: Laying comfortably in bed on his right side HEENT: NCAT. PERRL No sclera icterus. Membranes moist. Neck supple with full ROM. Cardio: Regular rate and rhythm, no murmurs appreciated. . Lungs: CTAB Abd: Soft, obese, non-tender with normal bowel tones Ext: No edema, no clubbing. Skin: Warm, dry and intact Neuro: CN 2-12 grossly intact, dysconjugate gaze. Psych: in mild distress, normal speech IVs and Medications Medications Reviewed: Medications were reviewed in detail Lab and Diagnostics Result Diagram: 08/08/16 0620 08/08/16 0620 X-Rays, CTs and MRIs Date of Service: 08/06/16 1527 PROCEDURE: CT BRAIN WITHOUT CONTRAST ([id number]) INDICATIONS: dizziness, vomiting IMPRESSION: No acute intracranial abnormality. Dictated by: Cassidy Anderson M.D. on 08/06/2016 at 16:26 Date of Service: 08/07/16 1256 PROCEDURE: MRI BRAIN WITHOUT CONTRAST ([id number]) INDICATIONS: Stroke IMPRESSION: The medial aspect of the left cerebellar peduncle shows a small 8 x 9 mm area of acute or subacute ischemic injury without mass effect or hemorrhage. This presumably is a manifestation of microvascular atherosclerotic change. Dictated by: Tobin Rosenberg M.D. on 08/07/2016 at 15:44 Assessment & Plan Patient is a 60-year-old male with history of CVA in 2015 and TIA in 05/2016, diet controlled type II diabetes, hypertension, stage 4 CKD second to DM and smoking who presented to the emergency department with sudden onset of nausea with vomiting, lightheadedness, and disequilibrium. Day#2. 1. Questionable TIA vs dysequilibrium, present on admission, improving - Pt presents with complaint of left sided weakness that has mostly resolved after 24 hours - Pt has known carotid stenosis from US done 05/29/16, has had no intervention for this - Brain CT shows no hemorrhage - Stroke protocol MRI unavailable due to Stage 4 ckd - Aspirin 81 mg daily for next 3 months per neurology recs - Plavix 75 mg daily - significant horizontal nystagmus on physical exam, dizziness highly suspicious for BPPV - Echocardiogram pending results - MRI without contrast today pending results - Dr Ren of neurology consulted, appreciate his expertise continue with dual platelet therapy outpatient Holter monitor or Zio patch, possible LINDY to rule out cardioembolic events - OT/PT/swallow eval ordered, passed swallow eval 2. Acute on chronic kidney injury, present on admission, stable. - Baseline creatinine around mid 2's. last labs from PCP on 06/24 for hospital follow up at 3.23 - highly suspicious of pre-renal azotemia due to recent episodes of vomiting - Patient missed appointment with Dr. Narvaez due to current illness - Avoid nephrotoxic meds - IVF 100mL//h - Repeat BMP in am - Nephro consulted, appreciate time and expertise Renal US pending 3. Hypertensive. Uncontrolled. - No permissive HTN as this started > 24 hours ago; currently SBP > 200 - was stablized with Labetalol 10-20 mg PRN for SBP > 180 - now put back on his home dosing of metoprolol tartrate 50mg BID - Hydralazine 10mg Q6H PRN for SBP above 160 - Minoxidil 5mg started today 4. Nausea/vomiting; poa, Resolved. - Started 2 days ago around the time of the TIA/dysequilibrium - Zofran and promethazine for control - Famotidine 20mg BID - Meclizine 25mg QID PRN 5. Hypothyroidism, chronic - Continue levothyroxine 6. Diabetes mellitus type II, non-insulin using, present on admission, active - Patient stopped taking metformin and glyburide due to diet controlled outpatient - A1c 6.9 in Nov - Low dose correctional 7. Tobacco use disorder - Patient doing better on patches but having a rash; recently smoked a couple cigarettes 8. Elevated troponin - Likely due to chronic kidney disease - Trending down 9. DVT prophylaxis - Heparin subcu Dispo: Anticipate discharge once patient is medically stable most likely to be in 2-3 days. GI Prophylaxis: H2 olga VTE Mechanical Devices: Intermittant Pneumatic CD Resuscitation Status: DNR/DNI:Do Not Resuscitate/Intubate Attending Statement The patient was seen and examined together with Dr. Ashford on 08/08/2016 and I agree with the history, exam and plan as outlined in the note above. Leisa Ashford DO Aug 08, 2016 15:19 Kian Gamez MD Aug 09, 2016 14:26
--- NOTE | 2016-08-08 16:40 | PCM.PNMED ---
Subjective Date of Service Aug 08, 2016 Subjective no nausea/vomiting today. BP remained elevated. Exam Vital Signs Vital Sign - Last Date Time Temp Pulse Resp B/P Pulse Ox O2 Delivery O2 Flow Rate FiO2 08/08/16 13:58 36.4 55 18 194/91 97 Room Air Intake and Output 08/07/16 08/07/16 08/08/16 Cumulative From/Thru 15:00 23:00 07:00 08/06/16 13:22 - 08/08/16 06:30 Intake Total 100 ml 1065 ml 2365 ml Output Total 825 ml 475 ml 2300 ml Balance -725 ml 590 ml 65 ml Intake Oral 100 ml 300 ml IV Total 1065 ml 2065 ml Output Urine Total 825 ml 475 ml 2300 ml Exam PHYSICAL EXAMINATION: Awake, alert, oriented x3. No acute distress. HEENT: No pallor, no jaundice, no JVD. No lymphadenopathy. No thyroid enlargement. Heart: Regular rhythm. Normal S1, S2. No murmurs, rubs, or gallops. Lungs: Clear to auscultation bilaterally. No wheezing. No rhonchi. Abdomen is soft, active bowel sounds. Extremity: No edema, cyanosis or clubbing of fingers. Weak pedal pulses. Lab and Diagnostics Result Diagram: 08/08/1661908/08/16619 Assessment & Plan 1. Acute kidney injury on chronic kidney disease, stage 4. The etiology of acute kidney injury is likely due to prerenal azotemia given history of nausea vomiting. 2. The etiology of chronic kidney disease rather multifactorial including hypertensive nephrosclerosis, type 2 diabetes with nephropathy and renovascular disease. 3. Poorly controlled BP, suspected NAKIA per renal artery duplex. 4. Dizziness, suspected transient ischemic attack. 5. Hypertension with hypertensive nephrosclerosis. 6. Type 2 diabetes. 7. History of proteinuria. PLANS: 1. d/c IVF. 2. Discontinue lisinopril. 3. start nifedipine XL 60 mg BID. 4. Continue metoprolol 50 mg twice a day. 5. consult cardiology whether pt is eligible for renal artery stent placement. 6. Avoid nephrotoxins. 7. Adjust medications per GFR. GI Prophylaxis: H2 olga VTE Mechanical Devices: Intermittant Pneumatic CD Resuscitation Status: DNR/DNI:Do Not Resuscitate/Intubate Kareen Phan MD Aug 08, 2016 15:27
[2016-08-09] VITALS (7 sets, daily range): BP systolic 126–158; BP diastolic 62–73; PULSE 63–70; RESP 18; O2SAT 93–97
--- NOTE | 2016-08-09 04:56 | NUR ---
BP/Neuro PT had Nifedipine and Minoxidil @[facility] as ordered. SBP is down to 130s. PT denies tingling or numbness this shift. Neuro check's WNL.
[2016-08-09] MEDS: NIFEdipine 30 mg ER24 Tablet PO SCH (08:51)
--- NOTE | 2016-08-09 09:54 | PCM.PNMED ---
Subjective Date of Service Aug 09, 2016 Subjective No overnight events. Patient reports no further nausea or vomiting since yesterday morning. Tolerating oral intake. Would like to know more about his kidneys. Denies GILL, vision changes, CP, SOB, fevers or chills Exam Vital Signs Vital Sign - Last Date Time Temp Pulse Resp B/P Pulse Ox O2 Delivery O2 Flow Rate FiO2 08/09/16 08:25 36.7 69 18 146/73 96 Room Air Intake and Output 08/08/16 08/08/16 08/09/16 Cumulative From/Thru 15:00 23:00 07:00 08/06/16 13:22 - 08/09/16 06:56 Intake Total 912 ml 500 ml 150 ml 3927 ml Output Total 800 ml 720 ml 750 ml 4570 ml Balance 112 ml -220 ml -600 ml -643 ml Intake Oral 650 ml 500 ml 150 ml 1600 ml IV Total 262 ml 2327 ml Output Urine Total 800 ml 720 ml 750 ml 4570 ml Exam Gen: NAD, laying comfortably in bed on his left side HEENT: NCAT. EOMI, No sclera icterus. Neck supple Cardio: Regular rate and rhythm, no murmurs appreciated. . Lungs: CTAB Abd: Soft, obese, non-tender with normal bowel tones Ext: No edema, no clubbing. Skin: Warm, dry and intact Psych: Alert and oriented, normal speech IVs and Medications Medications Reviewed: Medications were reviewed in detail Lab and Diagnostics Result Diagram: 08/08/16 0620 08/09/16 0535 X-Rays, CTs and MRIs Date of Service: 08/06/16 1527 PROCEDURE: CT BRAIN WITHOUT CONTRAST ([id number]) INDICATIONS: dizziness, vomiting IMPRESSION: No acute intracranial abnormality. Dictated by: Cassidy Anderson M.D. on 08/06/2016 at 16:26 Date of Service: 08/07/16 1256 PROCEDURE: MRI BRAIN WITHOUT CONTRAST ([id number]) INDICATIONS: Stroke IMPRESSION: The medial aspect of the left cerebellar peduncle shows a small 8 x 9 mm area of acute or subacute ischemic injury without mass effect or hemorrhage. This presumably is a manifestation of microvascular atherosclerotic change. Dictated by: Tobin Rosenberg M.D. on 08/07/2016 at 15:44 Additional Diagnostics Date of Service: 08/08/16 0500 PROCEDURE: US RENAL WITH ARTERIES DUPLEX DOPPLER SONOGRAM, LIMITED INDICATIONS: uncontrolled HTN, NAKIA IMPRESSION: 1. Tardus parvus waveforms are visualized within the bilateral renal arteries most notably within the hilar regions and the medullary regions consistent with bilateral renal artery stenosis. Dictated by: Eliane Farnsworth M.D. on 08/08/2016 at 12:05 Assessment & Plan Patient is a 60-year-old male with history of CVA in 2014 and TIA in 05/2016, diet controlled type II diabetes, hypertension, stage 4 CKD second to DM and smoking who presented to the emergency department with sudden onset of nausea with vomiting, lightheadedness, and disequilibrium. Day#3. 1. Questionable TIA vs dysequilibrium, present on admission, improving - Pt presents with complaint of left sided weakness that has mostly resolved after 24 hours - Pt has known carotid stenosis from US done 05/29/16, has had no intervention for this - Brain CT shows no hemorrhage - Stroke protocol MRI unavailable due to Stage 4 ckd - Aspirin 81 mg daily for next 3 months per neurology recs - Plavix 75 mg daily - significant horizontal nystagmus on physical exam, dizziness highly suspicious for BPPV - Echocardiogram pending results - MRI without contrast today pending results - Dr Ren of neurology consulted, appreciate his expertise continue with dual platelet therapy outpatient Holter monitor or Zio patch, possible LINDY to rule out cardioembolic events - OT/PT/swallow eval ordered, passed swallow eval 2. Acute on chronic kidney injury, present on admission, stable. - Baseline creatinine around mid 2's. last labs from PCP on 06/24 for hospital follow up at 3.23 - highly suspicious of pre-renal azotemia due to recent episodes of vomiting - Patient missed appointment with Dr. Narvaez due to current illness - Avoid nephrotoxic meds - Gentle hydration NS 80mL//h - Nephro consulted, appreciate time and expertise Renal US showed renal artery stenosis - Interventional cardiology consulted 3. Hypertensive. Uncontrolled. - No permissive HTN as this started > 24 hours ago; currently SBP > 200 - was stablized with Labetalol 10-20 mg PRN for SBP > 180 - now put back on his home dosing of metoprolol tartrate 50mg BID - Hydralazine 10mg Q6H PRN for SBP above 160 - Minoxidil stopped due to creatinine worsening - Will keep systolic blood pressure in the 170s, until creatinine improves 4. Nausea/vomiting; poa resolved. - Started 2 days ago around the time of the TIA/dysequilibrium - Zofran and promethazine for control - Famotidine 20mg BID - Meclizine 25mg QID PRN 5. Hypothyroidism, chronic - Continue levothyroxine 6. Diabetes mellitus type II, non-insulin using, present on admission, active - Patient stopped taking metformin and glyburide due to diet controlled outpatient - A1c 6.9 in Nov - Low dose correctional 7. Tobacco use disorder - Patient doing better on patches but having a rash; recently smoked a couple cigarettes 8. Elevated troponin - Likely due to chronic kidney disease - Trending down 9. DVT prophylaxis - Heparin subcu Dispo: Anticipate discharge once patient is medically stable most likely to be in 2-3 days. GI Prophylaxis: H2 olga VTE Mechanical Devices: Intermittant Pneumatic CD Resuscitation Status: DNR/DNI:Do Not Resuscitate/Intubate GI Prophylaxis: H2 olga VTE Mechanical Devices: Intermittant Pneumatic CD Resuscitation Status: DNR/DNI:Do Not Resuscitate/Intubate Attending Statement The patient was seen and examined together with Dr. Ashford on 08/09/2016 and I agree with the history, exam and plan as outlined in the note above. Leisa Ashford DO Aug 09, 2016 09:50 Kian Gamez MD Aug 10, 2016 10:29
[2016-08-09] MEDS: 0.9% Sodium Chloride 1,000 ML IV SCH ×2 (10:52→23:30)
--- NOTE | 2016-08-09 11:07 | NUR ---
Evaluation completed. Please go to "Notes" then click on "Assessments and Notes" (bottom left corner of screen). Then select appropriate discipline tab on top of screen.
--- NOTE | 2016-08-09 11:34 | NUR ---
BG: Lunch time BG 160. No SS Insulin ordered. Blue R2 Team notified. R2 states will hold off on ordering SS Insulin now, wait to check dinner time BG and re-eval if SS Insulin coverage needed.
--- NOTE | 2016-08-09 13:43 | PCM.PNMED ---
Subjective Date of Service Aug 09, 2016 Subjective BP now controlled, pt has no GILL. He feels off balance while standing and walking. No significant weakness. Exam Vital Signs Vital Sign - Last Date Time Temp Pulse Resp B/P Pulse Ox O2 Delivery O2 Flow Rate FiO2 08/09/16 08:25 36.7 69 18 146/73 96 Room Air Intake and Output 08/08/16 08/08/16 08/09/16 Cumulative From/Thru 15:00 23:00 07:00 08/06/16 13:22 - 08/09/16 06:56 Intake Total 912 ml 500 ml 150 ml 3927 ml Output Total 800 ml 720 ml 750 ml 4570 ml Balance 112 ml -220 ml -600 ml -643 ml Intake Oral 650 ml 500 ml 150 ml 1600 ml IV Total 262 ml 2327 ml Output Urine Total 800 ml 720 ml 750 ml 4570 ml Exam PHYSICAL EXAMINATION: Awake, alert, oriented x3. No acute distress. HEENT: No pallor, no jaundice, no JVD. No lymphadenopathy. No thyroid enlargement. Heart: Regular rhythm. Normal S1, S2. No murmurs, rubs, or gallops. Lungs: Clear to auscultation bilaterally. No wheezing. No rhonchi. Abdomen is soft, active bowel sounds. Extremity: No edema, cyanosis or clubbing of fingers. Weak pedal pulses. Lab and Diagnostics Result Diagram: 08/08/16 0620 08/09/16 0535 X-Rays, CTs and MRIs Date of Service: 08/06/16 1527 PROCEDURE: CT BRAIN WITHOUT CONTRAST ([id number]) INDICATIONS: dizziness, vomiting IMPRESSION: No acute intracranial abnormality. Dictated by: Cassidy Anderson M.D. on 08/06/2016 at 16:26 Date of Service: 08/07/16 1256 PROCEDURE: MRI BRAIN WITHOUT CONTRAST ([id number]) INDICATIONS: Stroke IMPRESSION: The medial aspect of the left cerebellar peduncle shows a small 8 x 9 mm area of acute or subacute ischemic injury without mass effect or hemorrhage. This presumably is a manifestation of microvascular atherosclerotic change. Dictated by: Tobin Rosenberg M.D. on 08/07/2016 at 15:44 Additional Diagnostics Date of Service: 08/08/16 0500 PROCEDURE: US RENAL WITH ARTERIES DUPLEX DOPPLER SONOGRAM, LIMITED INDICATIONS: uncontrolled HTN, NAKIA IMPRESSION: 1. Tardus parvus waveforms are visualized within the bilateral renal arteries most notably within the hilar regions and the medullary regions consistent with bilateral renal artery stenosis. Dictated by: Eliane Farnsworth M.D. on 08/08/2016 at 12:05 Assessment & Plan 1. Acute kidney injury on chronic kidney disease, stage 4. - worsening kidney function after BP is normalized. - The etiology if CARLOS is due to poor renal perfusion, ischemic ATN given underlying of renal autoregulation dysfunction. - will allow permissive hypertension, sBP ~ 160-180. - dw with mental health social worker and patient in length in terms of prognosis of CKD and risk and benefits of renal artery stent placement. 2. CKD rather multifactorial including hypertensive nephrosclerosis, type 2 diabetes with nephropathy and renovascular disease. 3. Poorly controlled BP due to NAKIA. 4. Dizziness, suspected transient ischemic attack. 5. Hypertension with hypertensive nephrosclerosis. 6. Type 2 diabetes. 7. History of proteinuria. PLANS: 1. start IVF. 2. d/c minoxidil. 3. decrease nifedipine XL 60 mg daily. 4. continue metoprolol. 5. plan for renal artery stent placement on Friday if kidney function improves. GI Prophylaxis: H2 olga VTE Mechanical Devices: Intermittant Pneumatic CD Resuscitation Status: DNR/DNI:Do Not Resuscitate/Intubate Kareen Phan MD Aug 09, 2016 13:43
--- NOTE | 2016-08-09 17:03 | NUR ---
Social Work: Continued d/c planning Data: Pt is on day 3 of hospitalization. EMR reviewed. PT and OT both recommending inpt rehab. [facility] R[facility]ER will follow up regarding inpt rehab referrals. LALITA Pereira
[2016-08-10] VITALS (8 sets, daily range): BP systolic 132–178; BP diastolic 61–83; PULSE 56–70; RESP 18–20; O2SAT 96–98
[2016-08-10] MEDS ORDERED: Glucose 40% Oral Gel 15 Gm Tube PO PRN (08:05)
[2016-08-10] MEDS: Insulin LISPRO 300 Unit/3 mL Inj SUBQ SCH ×4 (08:05→22:00)
[2016-08-10] MEDS: NIFEdipine 30 mg ER24 Tablet PO SCH (08:47)
--- NOTE | 2016-08-10 09:11 | NUR ---
NUTRITION ASSESSMENT: ASSESS: 60 YO male admitted with acute kidney injury on chronic stage IV kidney disease. He is scheduled for a renal artery stent Friday if his kidney function improves. His PO intake has increased from minimal to 100% trays currently. PMHx: HTN, DM type 2, CVA , Stage IV kidney disease, CAD, inferior MO. LABS: Reviewed. BUN 48, Cr 3.73, Glu 191, A1c 7.3, Ca 8.0. MEDS:Reviewed. Insulin, vitamin D3, lopressor. GI: Diarrhea noted today. WT:100.2 kg. IBW: 71.36 kg. Same admit weight. DIET: Consistent carbohydrate. PO intake 100% trays consistently. EST. NEEDS (BMI/STAGE IV KIDNEY DISEASE): Kcals: 3972-7563 kcals (20-25 kcals/kg BW) Protein: 55-70 g protein (0.8-1.0 g/kg IBW) NUTRITION DIAGNOSIS: 1) Inadequate oral intake related to unknown etiology as evidenced by current refusal of all meals - RESOLVED. NUTRITION INTERVENTION: 1) No intervention at this time. MONITOR / EVAL: PO intake, labs, nutritional status. Follow per low nutritional risk guidelines.
--- NOTE | 2016-08-10 10:17 | PCM.PNMED ---
Subjective Date of Service Aug 10, 2016 Subjective No overnight events. Patient reports he has not had any further episodes of nausea or vomiting. Discussed with family and would like to pursue intervention for his NAKIA. Denies GILL, vision changes from his baseline, SOB, fevers or chills. Exam Vital Signs Vital Sign - Last Date Time Temp Pulse Resp B/P Pulse Ox O2 Delivery O2 Flow Rate FiO2 08/10/16 05:22 70 08/10/16 05:20 36.7 18 164/72 97 Room Air Intake and Output 08/09/16 08/09/16 08/10/16 Cumulative From/Thru 15:00 23:00 07:00 08/06/16 13:22 - 08/10/16 06:23 Intake Total 832 ml 300 ml 5059 ml Output Total 400 ml 800 ml 5770 ml Balance 432 ml -500 ml -711 ml Intake Oral 400 ml 300 ml 2300 ml IV Total 432 ml 2759 ml Output Urine Total 400 ml 800 ml 5770 ml Exam Gen: NAD, laying comfortably in bed on his right side HEENT: NCAT. EOMI, No sclera icterus. Neck supple, pink mucous membranes Cardio: Regular rate and rhythm, no murmurs appreciated. . Lungs: CTAB Abd: Soft, obese, non-tender, hypoactive bowel tones Ext: No edema, no clubbing. Skin: Warm, dry and intact Psych: Alert and oriented, normal speech IVs and Medications Medications Reviewed: Medications were reviewed in detail Lab and Diagnostics Result Diagram: 08/08/16 0620 08/10/16 0555 X-Rays, CTs and MRIs Date of Service: 08/06/16 1527 PROCEDURE: CT BRAIN WITHOUT CONTRAST ([id number]) INDICATIONS: dizziness, vomiting IMPRESSION: No acute intracranial abnormality. Dictated by: Cassidy Anderson M.D. on 08/06/2016 at 16:26 Date of Service: 08/07/16 1256 PROCEDURE: MRI BRAIN WITHOUT CONTRAST ([id number]) INDICATIONS: Stroke IMPRESSION: The medial aspect of the left cerebellar peduncle shows a small 8 x 9 mm area of acute or subacute ischemic injury without mass effect or hemorrhage. This presumably is a manifestation of microvascular atherosclerotic change. Dictated by: Tobin Rosenberg M.D. on 08/07/2016 at 15:44 Additional Diagnostics Date of Service: 08/08/16 0500 PROCEDURE: US RENAL WITH ARTERIES DUPLEX DOPPLER SONOGRAM, LIMITED INDICATIONS: uncontrolled HTN, NAKIA IMPRESSION: 1. Tardus parvus waveforms are visualized within the bilateral renal arteries most notably within the hilar regions and the medullary regions consistent with bilateral renal artery stenosis. Dictated by: Eliane Farnsworth M.D. on 08/08/2016 at 12:05 Assessment & Plan Patient is a 60-year-old male with history of CVA in 2014 and TIA in 05/2016, diet controlled type II diabetes, hypertension, stage 4 CKD second to DM and smoking who presented to the emergency department with sudden onset of nausea with vomiting, lightheadedness, and disequilibrium. Day#4. 1. Hypertensive emergency with acute on chronic kidney injury due to NAKIA, present on admission. Improving. - Pt presents with nausea and vomiting x 3days, BP 197/106 on admit with max of 237/103 - was stabilized with Labetalol 10-20 mg PRN for SBP > 160 - now put back on his home dosing of metoprolol tartrate 50mg BID - Hydralazine 10mg Q6H PRN for SBP above 180 - Nifedipine added - Minoxidil stopped due to creatinine worsening - Continue to keep systolic blood pressure between 160-180, creatinine improving 2. Questionable TIA vs dysequilibrium, present on admission, Resolved. - Pt presents with complaint of left sided weakness that has mostly resolved after 24 hours - Pt has known carotid stenosis from US done 05/29/16, has had no intervention for this - No permissive HTN as this started > 24 hours ago; currently SBP > 200 - Brain CT shows no hemorrhage - Stroke protocol MRI unavailable due to Stage 4 CKD - Aspirin 81 mg daily - Plavix 75 mg daily - significant horizontal nystagmus on physical exam, dizziness highly suspicious for BPPV - Echocardiogram showed EF of 45-50%. There is inferior wall moderate hypokinesis. No significant valvular disease, no findings of cardioembolic stroke. - MR brain with no findings of acute process. - Dr Ren of neurology consulted, appreciate his expertise continue dual platelet therapy (ASA 81mg for 3 months then stop) outpatient Holter monitor or Zio patch, possible LINDY to rule out cardioembolic events - OT/PT/swallow eval ordered, passed swallow eval, OT recommends SNF at discharge 3. Acute on chronic kidney injury, present on admission, stable. - Baseline creatinine around mid 2's. last labs from PCP on 06/24 for hospital follow up at 3.23 - highly suspicious of pre-renal azotemia due to recent episodes of vomiting - Patient missed appointment with Dr. Narvaez due to current illness - Avoid nephrotoxic meds - Stabilization of BP lead to creatinine rising - Gentle hydration NS 80mL//h held due to patient tolerating orals, will restart prior to renal intervention - Nephro consulted, appreciate time and expertise Renal US showed renal artery stenosis - Interventional cardiology consulted NAKIA intervention temporarily scheduled for Friday as long as kidney function returns to baseline Per on-call cardiology, hospitalist team to call Dr. Vernon first thing Friday, to schedule 4. Nausea/vomiting; poa resolved. - Started 2 days prior to presentation around the time of the TIA/ dysequilibrium - Zofran and promethazine PRN - Famotidine 20mg BID - Meclizine 25mg QID PRN 5. Hypothyroidism, chronic - Continue levothyroxine 6. Diabetes mellitus type II, non-insulin using, present on admission, active - Patient stopped taking metformin and glyburide due to diet controlled outpatient - A1c 6.9 in Nov - Low dose correctional 7. Tobacco use disorder - Patient doing better on patches but having a rash; recently smoked a couple cigarettes 8. Elevated troponin - Likely due to chronic kidney disease - Trending down 9. DVT prophylaxis - Heparin subcu Dispo: Anticipate discharge once patient is medically stable most likely to be in 2-3 days. GI Prophylaxis: H2 olga VTE Mechanical Devices: Intermittant Pneumatic CD Resuscitation Status: DNR/DNI:Do Not Resuscitate/Intubate GI Prophylaxis: H2 olga VTE Mechanical Devices: Intermittant Pneumatic CD Resuscitation Status: DNR/DNI:Do Not Resuscitate/Intubate GI Prophylaxis: H2 olga VTE Mechanical Devices: Intermittant Pneumatic CD Resuscitation Status: DNR/DNI:Do Not Resuscitate/Intubate Attending Statement The patient was seen and examined together with Dr. Ashford on 08/10/2016 and I agree with the history, exam and plan as outlined in the note above. Leisa Ashford DO Aug 10, 2016 10:00 Kian Gamez MD Aug 11, 2016 10:33
[2016-08-10] MEDS: Polyethylene Glycol (PEG) 17 Gm Powder PO SCH (12:18)
--- NOTE | 2016-08-10 12:56 | PCM.PNMED ---
Subjective Date of Service Aug 10, 2016 Subjective no acute issue overnight. He has decided to proceed with renal artery stent placement. Exam Vital Signs Vital Sign - Last Date Time Temp Pulse Resp B/P Pulse Ox O2 Delivery O2 Flow Rate FiO2 08/10/16 10:36 56 08/10/16 10:34 36.5 18 132/61 96 Room Air Intake and Output 08/09/16 08/09/16 08/10/16 Cumulative From/Thru 15:00 23:00 07:00 08/06/16 13:22 - 08/10/16 06:23 Intake Total 832 ml 300 ml 5059 ml Output Total 400 ml 800 ml 5770 ml Balance 432 ml -500 ml -711 ml Intake Oral 400 ml 300 ml 2300 ml IV Total 432 ml 2759 ml Output Urine Total 400 ml 800 ml 5770 ml Exam Awake, alert, oriented x3. No acute distress. HEENT: No pallor, no jaundice, no JVD. No lymphadenopathy. No thyroid enlargement. Heart: Regular rhythm. Normal S1, S2. No murmurs, rubs, or gallops. Lungs: Clear to auscultation bilaterally. No wheezing. No rhonchi. Abdomen is soft, active bowel sounds. Extremity: No edema, cyanosis or clubbing of fingers. Weak pedal pulses. Lab and Diagnostics Result Diagram: 08/08/16 0620 08/10/16 0555 X-Rays, CTs and MRIs Date of Service: 08/06/16 1527 PROCEDURE: CT BRAIN WITHOUT CONTRAST ([id number]) INDICATIONS: dizziness, vomiting IMPRESSION: No acute intracranial abnormality. Dictated by: Cassidy Anderson M.D. on 08/06/2016 at 16:26 Date of Service: 08/07/16 1256 PROCEDURE: MRI BRAIN WITHOUT CONTRAST ([id number]) INDICATIONS: Stroke IMPRESSION: The medial aspect of the left cerebellar peduncle shows a small 8 x 9 mm area of acute or subacute ischemic injury without mass effect or hemorrhage. This presumably is a manifestation of microvascular atherosclerotic change. Dictated by: Tobin Rosenberg M.D. on 08/07/2016 at 15:44 Additional Diagnostics Date of Service: 08/08/16 0500 PROCEDURE: US RENAL WITH ARTERIES DUPLEX DOPPLER SONOGRAM, LIMITED INDICATIONS: uncontrolled HTN, NAKIA IMPRESSION: 1. Tardus parvus waveforms are visualized within the bilateral renal arteries most notably within the hilar regions and the medullary regions consistent with bilateral renal artery stenosis. Dictated by: Eliane Farnsworth M.D. on 08/08/2016 at 12:05 Assessment & Plan 1. Acute kidney injury on chronic kidney disease, stage 4. - Worsening kidney function after BP is normalized. - The etiology if CARLOS is due to poor renal perfusion, ischemic ATN given underlying of renal autoregulation dysfunction. - will allow permissive hypertension, sBP ~ 160-180. - dw with producer and patient in length in terms of prognosis of CKD and risk and benefits of renal artery stent placement. - Pt would like to proceed with stent placement. 2. CKD rather multifactorial including hypertensive nephrosclerosis, type 2 diabetes with nephropathy and renovascular disease. 3. Poorly controlled BP due to NAKIA. 4. Dizziness, suspected transient ischemic attack. 5. Hypertension with hypertensive nephrosclerosis. 6. Type 2 diabetes. 7. History of proteinuria. PLANS: 1. continue metoprolol and nifedipine XL 60 mg daily. 2. continue metoprolol. 3. plan for renal artery stent placement on Friday if kidney function improves. GI Prophylaxis: H2 olga VTE Mechanical Devices: Intermittant Pneumatic CD Resuscitation Status: DNR/DNI:Do Not Resuscitate/Intubate Kareen Phan MD Aug 10, 2016 12:56
--- NOTE | 2016-08-10 14:26 | NUR ---
Social Work-continued d/c planning: Data:EMR reviewed. Pt is on day 4 of hospitalization for acute CVA per H&P. Per MD, anticipate pt will remain in the hospital for several more days. PT and OT both saw pt yesterday and are recommending inpt rehab. SW followed up with at bedside to discuss, SW role explained. SW explained recommendation of inpt rehab and explained about inpt rehab. Pt states he would like to think about this and then get back to SW. SW explained that therapies will be continuing to follow pt daily and make recommendations. SW to follow up with pt again tomorrow. SW will continue to follow. Assessment:Inpt rehab vs home with HH. Plan:SW to follow up again tomorrow regarding inpt rehab. Pt would like to think about this option overnight. SW will continue to follow. LALITA Macias
--- NOTE | 2016-08-10 16:30 | NUR ---
Mobility and Activity: Patient has been up at bedside to use his urinal. Patient ambulated in the [place] with PT and tolerated the activity without issues. Patient has been alert and oriented and calm, using his call light appropriately.
[2016-08-11] VITALS (10 sets, daily range): BP systolic 121–197; BP diastolic 64–88; PULSE 60–73; RESP 16–20; O2SAT 92–98
[2016-08-11] MEDS: Polyethylene Glycol (PEG) 17 Gm Powder PO SCH ×2 (08:30→08:35)
[2016-08-11] MEDS: NIFEdipine 30 mg ER24 Tablet PO SCH (08:36)
[2016-08-11] MEDS: Insulin LISPRO 300 Unit/3 mL Inj SUBQ SCH ×4 (08:38→21:17)
[2016-08-11] MEDS: Ondansetron 2 mg/mL 2 mL Inj IVPUSH PRN (08:44)
--- NOTE | 2016-08-11 10:44 | PCM.PNMED ---
Subjective Date of Service Aug 11, 2016 Subjective Pt doing well today. He has no complaints or concerns at this time. He states he is did have some mild dizziness this morning, but this seems to have resolved. He is anxious to have his Renal Artery stenting procedure. Exam Vital Signs Vital Sign - Last Date Time Temp Pulse Resp B/P Pulse Ox O2 Delivery O2 Flow Rate FiO2 08/11/16 10:08 36.4 61 18 197/83 95 Room Air Intake and Output 08/10/16 08/10/16 08/11/16 Cumulative From/Thru 15:00 23:00 07:00 08/06/16 13:22 - 08/11/16 06:27 Intake Total 390 ml 1120 ml 400 ml 6969 ml Output Total 1225 ml 950 ml 7945 ml Balance 390 ml -105 ml -550 ml -976 ml Intake Oral 1120 ml 400 ml 3820 ml IV Total 390 ml 3149 ml Output Urine Total 1225 ml 950 ml 7945 ml # Bowel Movements 0 0 Exam GENERAL: NAD, Pt laying in bed comfortably HEENT: AT/NC, PERRLA, EOMI, Mucus Membranes are moist CARDIAC: RRR; No M/R/G PULM: CTAB; No wheezes or rhonchi bilaterally EXT: No C/C/E; No calf tenderness bilaterally NEURO: Alert and oriented x3; Following all commands PSYCH: Normal mood and affect IVs and Medications Medications Reviewed: Medications were reviewed in detail Lab and Diagnostics Result Diagram: 08/08/16 0620 08/11/16 0620 X-Rays, CTs and MRIs Date of Service: 08/06/16 1527 PROCEDURE: CT BRAIN WITHOUT CONTRAST ([id number]) INDICATIONS: dizziness, vomiting IMPRESSION: No acute intracranial abnormality. Dictated by: Cassidy Anderson M.D. on 08/06/2016 at 16:26 Date of Service: 08/07/16 1256 PROCEDURE: MRI BRAIN WITHOUT CONTRAST ([id number]) INDICATIONS: Stroke IMPRESSION: The medial aspect of the left cerebellar peduncle shows a small 8 x 9 mm area of acute or subacute ischemic injury without mass effect or hemorrhage. This presumably is a manifestation of microvascular atherosclerotic change. Dictated by: Tobin Rosenberg M.D. on 08/07/2016 at 15:44 Additional Diagnostics Date of Service: 08/08/16 0500 PROCEDURE: US RENAL WITH ARTERIES DUPLEX DOPPLER SONOGRAM, LIMITED INDICATIONS: uncontrolled HTN, NAKIA IMPRESSION: 1. Tardus parvus waveforms are visualized within the bilateral renal arteries most notably within the hilar regions and the medullary regions consistent with bilateral renal artery stenosis. Dictated by: Eliane Farnsworth M.D. on 08/08/2016 at 12:05 Assessment & Plan Patient is a 60-year-old male with history of CVA in 2014 and TIA in 05/2016, diet controlled type II diabetes, hypertension, stage 4 CKD second to DM and smoking who presented to the emergency department with sudden onset of nausea with vomiting, lightheadedness, and disequilibrium. Day#4. 1. Hypertension - Secondary to newly diagnosed bilateral Renal Artery Stenosis - Continue Metoprolol at currrent dosage - Continue Nifedipine at current dosage - Continue IV Hydralazine PRN for SBP greater than 180 mmHg - Goal BP is 160-180 mmHg per Nephrology - Pt was initially started on Minoxidil, however this was discontinued - Nephrology on board 2. Acute Kidney Injury on CKD - Baseline creatinine is approximately 2.5 - Today creatinine is 3.36 - Renal US shows bilateral Renal Artery Stenosis - Nephrology on board and managing - Push PO fluids - Repeat BMP in AM 3. Renal Artery Stenosis, Bilateral - As evidenced by US findings during this admission - This is likely the cause of pts significant BP elevation - Pt to have bilateral renal artery stenting on 08/12/2016 - Call Dr. Vernon on AM of 08/12/2016 to have this scheduled - NPO after midnight tonight for possible procedure in AM - Nephrology following 4. Benign Positional Vertigo - Continue Meclizine PRN 5. Hx of Recent CVA - Continue Aspirin - Continue Plavix - Pt has known carotid stenosis but has not yet had any intervention for this 6. Hypothyroidism - Continue Levothyroxine 7. Diabetes Mellitus, Type II - Well controlled - Continue checking FSBS q AC and HS - Continue low-dose SSI 8. Tobacco Use Disorder - Nicotine Patch - Pt counseled to quit smoking GI Prophylaxis: H2 olga VTE Mechanical Devices: Intermittant Pneumatic CD Resuscitation Status: DNR/DNI:Do Not Resuscitate/Intubate Kian Gamez MD Aug 11, 2016 10:44
--- NOTE | 2016-08-11 13:12 | NUR ---
PT note attempted to see pt this a.m.; pt deferring sec to nausea and generally not feeling well; likely unable to return today so gave pt Rashad's ther ex in bed, including heel slides, hook lying abd/add, and a combination of both heel slides and hook lying abd/add with the focus on slow and controlled movement, as pt's movements are quite ataxic; pt able to return demo and instructed to complete later when feeling well, completing 5 reps of each; f/u 08/12
--- NOTE | 2016-08-11 14:03 | PCM.PNMED ---
Subjective Date of Service Aug 11, 2016 Subjective no acute issue. no GILL, no weakness. good UOP. Exam Vital Signs Vital Sign - Last Date Time Temp Pulse Resp B/P Pulse Ox O2 Delivery O2 Flow Rate FiO2 08/11/16 13:42 36.4 61 17 179/87 96 Room Air Intake and Output 08/10/16 08/10/16 08/11/16 Cumulative From/Thru 15:00 23:00 07:00 08/06/16 13:22 - 08/11/16 06:27 Intake Total 390 ml 1120 ml 400 ml 6969 ml Output Total 1225 ml 950 ml 7945 ml Balance 390 ml -105 ml -550 ml -976 ml Intake Oral 1120 ml 400 ml 3820 ml IV Total 390 ml 3149 ml Output Urine Total 1225 ml 950 ml 7945 ml # Bowel Movements 0 0 Exam Awake, alert, oriented x3. No acute distress. HEENT: No pallor, no jaundice, no JVD. No lymphadenopathy. No thyroid enlargement. Heart: Regular rhythm. Normal S1, S2. No murmurs, rubs, or gallops. Lungs: Clear to auscultation bilaterally. No wheezing. No rhonchi. Abdomen is soft, active bowel sounds. Extremity: No edema, cyanosis or clubbing of fingers. Weak pedal pulses. Lab and Diagnostics Result Diagram: 08/08/16 0620 08/11/16 0620 X-Rays, CTs and MRIs Date of Service: 08/06/16 1527 PROCEDURE: CT BRAIN WITHOUT CONTRAST ([id number]) INDICATIONS: dizziness, vomiting IMPRESSION: No acute intracranial abnormality. Dictated by: Cassidy Anderson M.D. on 08/06/2016 at 16:26 Date of Service: 08/07/16 1256 PROCEDURE: MRI BRAIN WITHOUT CONTRAST ([id number]) INDICATIONS: Stroke IMPRESSION: The medial aspect of the left cerebellar peduncle shows a small 8 x 9 mm area of acute or subacute ischemic injury without mass effect or hemorrhage. This presumably is a manifestation of microvascular atherosclerotic change. Dictated by: Tobin Rosenberg M.D. on 08/07/2016 at 15:44 Additional Diagnostics Date of Service: 08/08/16 0500 PROCEDURE: US RENAL WITH ARTERIES DUPLEX DOPPLER SONOGRAM, LIMITED INDICATIONS: uncontrolled HTN, NAKIA IMPRESSION: 1. Tardus parvus waveforms are visualized within the bilateral renal arteries most notably within the hilar regions and the medullary regions consistent with bilateral renal artery stenosis. Dictated by: Eliane Farnsworth M.D. on 08/08/2016 at 12:05 Assessment & Plan 1. Acute kidney injury on chronic kidney disease, stage 4. - Worsening kidney function after BP is normalized. - The etiology if CARLOS is due to poor renal perfusion, ischemic ATN given underlying of renal autoregulation dysfunction. - will allow permissive hypertension, sBP ~ 160-180. - dw with exchange underwriting consultant and patient in length in terms of prognosis of CKD and risk and benefits of renal artery stent placement. - Pt would like to proceed with stent placement. 2. CKD rather multifactorial including hypertensive nephrosclerosis, type 2 diabetes with nephropathy and renovascular disease. 3. Poorly controlled BP due to NAKIA. 4. Dizziness, suspected transient ischemic attack. 5. Hypertension with hypertensive nephrosclerosis. 6. Type 2 diabetes. 7. History of proteinuria. PLANS: 1. continue metoprolol 50 mg BID and nifedipine XL 60 mg daily. 2. plan for renal artery stent placement on Friday (AUDREY Vernon). GI Prophylaxis: H2 olga VTE Mechanical Devices: Intermittant Pneumatic CD Resuscitation Status: DNR/DNI:Do Not Resuscitate/Intubate Kareen Phan MD Aug 11, 2016 14:03
--- NOTE | 2016-08-11 15:49 | NUR ---
Social Work-continued d/c planning: Data:EMR reviewed. Pt is on day 5 of hospitalization for acute CVA per H&P. Per MD, anticipate pt will remain in the hospital for several more days. PT and OT both saw pt yesterday and are recommending inpt rehab. SW followed up again to further discuss. Pt states he is not feeling well and requests SW to come back. SW to follow up again tomorrow with recommendations. SW will continue to follow. Assessment:Inpt rehab vs home with HH. Plan:SW to follow up again tomorrow regarding inpt rehab. SW will continue to follow. LALITA Macias
--- NOTE | 2016-08-11 19:21 | NUR ---
Blood Sugars: Patients blood sugars have been high. 193 breakfast, 225 lunch and 122 dinner. New order for patient to receive Lantus insulin this evening for better control of blood sugars. Patient has been adhering to ADA diet.
[2016-08-11] MEDS: Insulin GLARgine 100 Unit/mL Syringe SUBQ SCH (21:17)
[2016-08-12] VITALS (9 sets, daily range): BP systolic 152–191; BP diastolic 71–86; PULSE 57–65; RESP 16–18; O2SAT 92–96
--- NOTE | 2016-08-12 06:02 | NUR ---
BM, Neuro: Per shift report, it had been days since a recorded BM. Previous RN administered Miralax and prune juice with good results tonight. Pt continues to have an unsteady gait, drifts to left. Using call light appropriately. States he has lost a lot of weight recently and can't support himself, "especially on my left".
[2016-08-12 07:40] LABS: Phosphorus 4.5 mg/dL (2.5-4.9)
[2016-08-12] MEDS: Insulin LISPRO 300 Unit/3 mL Inj SUBQ SCH ×4 (10:13→21:41)
[2016-08-12] MEDS: Ergocalciferol (Vit D2) 50,000 Unit Capsule PO SCH (10:19)
[2016-08-12] MEDS: NIFEdipine 30 mg ER24 Tablet PO SCH (10:20)
[2016-08-12] MEDS: Polyethylene Glycol (PEG) 17 Gm Powder PO SCH (10:20)
--- NOTE | 2016-08-12 10:47 | PCM.PNMED ---
Subjective Date of Service Aug 12, 2016 Subjective No overnight events: Patient has not had any nausea or vomiting. Has questions regarding his procedure tomorrow. Otherwise no concerns or complaints. Denies GILL, vision changes, fevers or chills. Exam Vital Signs Vital Sign - Last Date Time Temp Pulse Resp B/P Pulse Ox O2 Delivery O2 Flow Rate FiO2 08/12/16 09:51 36.9 63 16 186/77 96 Room Air Intake and Output 08/11/16 08/11/16 08/12/16 Cumulative From/Thru 14:59 22:59 06:59 08/06/16 13:22 - 08/12/16 06:11 Intake Total 1000 ml 400 ml 8369 ml Output Total 1350 ml 225 ml 9520 ml Balance -350 ml 175 ml -1151 ml Intake Oral 1000 ml 400 ml 5220 ml IV Total 3149 ml Output Urine Total 1350 ml 225 ml 9520 ml # Voids 2 2 # Bowel Movements 2 2 Exam Gen: NAD, laying comfortably in bed on his back HEENT: NCAT. Dysconjugate gaze, No sclera icterus. Neck supple, pink mucous membranes Cardio: Regular rate and rhythm, no murmurs appreciated. . Lungs: CTAB Abd: Soft, obese, non-tender, normal bowel tones Ext: No edema, no clubbing. Skin: Warm, dry and intact Psych: Alert and oriented, normal speech IVs and Medications Medications Reviewed: Medications were reviewed in detail Lab and Diagnostics Result Diagram: 08/08/16 0620 08/12/16 0605 X-Rays, CTs and MRIs Date of Service: 08/06/16 1527 PROCEDURE: CT BRAIN WITHOUT CONTRAST ([id number]) INDICATIONS: dizziness, vomiting IMPRESSION: No acute intracranial abnormality. Dictated by: Cassidy Anderson M.D. on 08/06/2016 at 16:26 Date of Service: 08/07/16 1256 PROCEDURE: MRI BRAIN WITHOUT CONTRAST ([id number]) INDICATIONS: Stroke IMPRESSION: The medial aspect of the left cerebellar peduncle shows a small 8 x 9 mm area of acute or subacute ischemic injury without mass effect or hemorrhage. This presumably is a manifestation of microvascular atherosclerotic change. Dictated by: Tobin Rosenberg M.D. on 08/07/2016 at 15:44 Additional Diagnostics Date of Service: 08/08/16 0500 PROCEDURE: US RENAL WITH ARTERIES DUPLEX DOPPLER SONOGRAM, LIMITED INDICATIONS: uncontrolled HTN, NAKIA IMPRESSION: 1. Tardus parvus waveforms are visualized within the bilateral renal arteries most notably within the hilar regions and the medullary regions consistent with bilateral renal artery stenosis. Dictated by: Eliane Farnsworth M.D. on 08/08/2016 at 12:05 Assessment & Plan Patient is a 60-year-old male with history of CVA in 2014 and TIA in 05/2016, diet controlled type II diabetes, hypertension, stage 4 CKD second to DM and smoking who presented to the emergency department with sudden onset of nausea with vomiting, lightheadedness, and disequilibrium. Day#6. 1. Hypertension - Secondary to newly diagnosed bilateral Renal Artery Stenosis - Continue Metoprolol at currrent dosage - Continue Nifedipine at current dosage - Continue IV Hydralazine PRN for SBP greater than 180 mmHg - Goal BP is 160-180 mmHg per Nephrology - Pt was initially started on Minoxidil, however this was discontinued - Nephrology on board 2. Acute Kidney Injury on CKD - Baseline creatinine is approximately 2.5 - Today creatinine down to 3.31 - Renal US shows bilateral Renal Artery Stenosis - Nephrology on board and managing - Push PO fluids - Repeat BMP in AM 3. Renal Artery Stenosis, Bilateral - As evidenced by US findings during this admission - This is likely the cause of pts significant BP elevation - Pt to have bilateral renal artery stenting on 08/12/2016 - Call Dr. Vernon on AM of 08/12/2016 to have this scheduled - NPO after midnight tonight for possible procedure in AM - Nephrology following 4. Benign Positional Vertigo - Continue Meclizine PRN 5. Hx of Recent CVA - Continue Aspirin - Continue Plavix - Pt has known carotid stenosis but has not yet had any intervention for this 6. Hypothyroidism - Continue Levothyroxine 7. Diabetes Mellitus, Type II - Well controlled - Continue checking FSBS q AC and HS - Continue low-dose SSI 8. Tobacco Use Disorder - Nicotine Patch - Pt counseled to quit smoking Dispo: Anticipate discharge in 1-2 days. SW working on SNF or home with HH. GI Prophylaxis: H2 olga VTE Mechanical Devices: Intermittant Pneumatic CD Resuscitation Status: DNR/DNI:Do Not Resuscitate/Intubate Time spent 25 minutes Attending Statement I have seen and evaluated patient at bedside, in addition to directly supervising care provided by resident physician. I agree with above documentation. Leisa Ashford DO Aug 12, 2016 10:46 Chaz Fulton DO Aug 12, 2016 15:56
--- NOTE | 2016-08-12 14:21 | PCM.PNMED ---
Subjective Date of Service Aug 12, 2016 Subjective Patient was seen today and offers no new complaints. His blood pressure remains elevated and his BUN and creatinine today are 46 and 3.31. He denies any headache, chest pain, or shortness of breath. Exam Vital Signs Vital Sign - Last Date Time Temp Pulse Resp B/P Pulse Ox O2 Delivery O2 Flow Rate FiO2 08/12/16 11:25 65 08/12/16 09:51 36.9 16 186/77 96 Room Air Intake and Output 08/11/16 08/11/16 08/12/16 Cumulative From/Thru 15:00 23:00 07:00 08/06/16 13:22 - 08/12/16 06:11 Intake Total 1000 ml 400 ml 8369 ml Output Total 1350 ml 225 ml 9520 ml Balance -350 ml 175 ml -1151 ml Intake Oral 1000 ml 400 ml 5220 ml IV Total 3149 ml Output Urine Total 1350 ml 225 ml 9520 ml # Voids 2 2 # Bowel Movements 2 2 Exam Neck is supple without adenopathy, thyromegaly, lymphadenopathy or venous distention. Lungs are clear to auscultation. Heart is regular and rhythmical with a soft systolic murmur. There is also an S4 noted. Abdomen was soft with midepigastric bruit noted. There is no tenderness rebound guarding masses or hepatosplenomegaly. Extremities no transient clubbing cyanosis or edema however [id number] nails were noted. Skin turgor was good. No evidence of any rashes. Lab and Diagnostics Result Diagram: 08/08/16 0620 08/12/16 0605 X-Rays, CTs and MRIs Date of Service: 08/06/16 1527 PROCEDURE: CT BRAIN WITHOUT CONTRAST ([id number]) INDICATIONS: dizziness, vomiting IMPRESSION: No acute intracranial abnormality. Dictated by: Csasidy Anderson M.D. on 08/06/2016 at 16:26 Date of Service: 08/07/16 1256 PROCEDURE: MRI BRAIN WITHOUT CONTRAST ([id number]) INDICATIONS: Stroke IMPRESSION: The medial aspect of the left cerebellar peduncle shows a small 8 x 9 mm area of acute or subacute ischemic injury without mass effect or hemorrhage. This presumably is a manifestation of microvascular atherosclerotic change. Dictated by: Tobin Rosenberg M.D. on 08/07/2016 at 15:44 Additional Diagnostics Date of Service: 08/08/16 0500 PROCEDURE: US RENAL WITH ARTERIES DUPLEX DOPPLER SONOGRAM, LIMITED INDICATIONS: uncontrolled HTN, NAKIA IMPRESSION: 1. Tardus parvus waveforms are visualized within the bilateral renal arteries most notably within the hilar regions and the medullary regions consistent with bilateral renal artery stenosis. Dictated by: Eliane Farnsworth M.D. on 08/08/2016 at 12:05 Assessment & Plan Impression #1 hypertension with hypertensive heart disease and hypertensive nephrosclerosis #2 acute kidney injury #3 with artery stenosis Recommendations #1 I agree with the plans for a renal angioplasty and stent placement for blood pressure control. We do need to continue his IV hydration pre-and post procedure and closely monitor his blood pressure. I would like to change to labetalol 300 mg twice a day. GI Prophylaxis: H2 olga VTE Mechanical Devices: Intermittant Pneumatic CD Resuscitation Status: DNR/DNI:Do Not Resuscitate/Intubate Vijay Woodson DO Aug 12, 2016 14:21
--- NOTE | 2016-08-12 14:51 | NUR ---
Social Work- Continued discharge planning Data & Assessment: EMR reviewed. Pt is on day six of hospitalization. SW met with patient at bedside to obtain inpatient rehab recommendation, but patient states that he does not want to make a decision on if he will go to inpatient rehab or not until after his stent placement. SW will follow up with patient for decision once his stents are placed. Plan: SW will follow-up with patient for inpatient rehab decision once his stents are placed. SW will continue to follow. Mel Llamas LMSW, ABDIRAHMAN
[2016-08-12] MEDS: Sodium Chloride LOK Flush 10 mL Syringe IVFLUSH SCH (16:33)
[2016-08-12] MEDS: Insulin GLARgine 100 Unit/mL Syringe SUBQ SCH (21:00)
[2016-08-13] VITALS (15 sets, daily range): BP systolic 147–191; BP diastolic 52–89; PULSE 56–68; RESP 12–16; O2SAT 94–97
[2016-08-13] MEDS: Sodium Chloride LOK Flush 10 mL Syringe IVFLUSH SCH ×3 (00:58→16:30)
[2016-08-13] MEDS ORDERED: Sodium Bicarb 8.4% Inj 150 MEQ in Dextrose 5% 1,000 ML IV ONE (06:00)
[2016-08-13 07:17] LABS: BASOPHILS % (AUTO) 0.5 % (0-3); MONOCYTES % (AUTO) 8.2 % (4-12); Mean Corpuscular Hemoglobin 27.4 pg (27.0-35.0); Mean Corpuscular Volume 83.6 fL (81-100); NEUTROPHILS % (AUTO) 69.4 % (40-74); Platelet Count 295 bil/L (150-400)
[2016-08-13] MEDS: Insulin LISPRO 300 Unit/3 mL Inj SUBQ SCH ×4 (08:00→21:10)
[2016-08-13] MEDS: Polyethylene Glycol (PEG) 17 Gm Powder PO SCH (08:30)
--- NOTE | 2016-08-13 08:55 | PCM.PNMED ---
Subjective Date of Service Aug 13, 2016 Subjective No overnight events. Today, patient states he feels fatigued, mildly anxious about his procedure this morning, but otherwise no concerns or complaints. Denies GILL, vision changes , nausea or vomiting. Exam Vital Signs Vital Sign - Last Date Time Temp Pulse Resp B/P Pulse Ox O2 Delivery O2 Flow Rate FiO2 08/13/16 00:56 36.5 61 16 182/81 96 Room Air Intake and Output 08/12/16 08/12/16 08/13/16 Cumulative From/Thru 15:00 23:00 07:00 08/06/16 13:22 - 08/13/16 06:34 Intake Total 1172 ml 708 ml 78614 ml Output Total 1050 ml 1100 ml 30798 ml Balance 122 ml -392 ml -1421 ml Intake Oral 1172 ml 708 ml 7100 ml IV Total 3149 ml Output Urine Total 1050 ml 1100 ml 72499 ml # Voids 2 # Bowel Movements 2 Exam Gen: NAD, laying comfortably in bed on left side HEENT: NCAT. No sclera icterus. Neck supple, pink mucous membranes Cardio: Regular rate and rhythm, no murmurs appreciated. . Lungs: CTAB Abd: Soft, obese, non-tender, normal bowel tones Ext: No edema, no clubbing. Skin: Warm, dry and intact Psych: Alert and oriented, normal speech IVs and Medications Medications Reviewed: Medications were reviewed in detail Lab and Diagnostics Result Diagram: 08/13/1662708/13/16627 X-Rays, CTs and MRIs Date of Service: 08/06/16 1527 PROCEDURE: CT BRAIN WITHOUT CONTRAST ([id number]) INDICATIONS: dizziness, vomiting IMPRESSION: No acute intracranial abnormality. Dictated by: Cassidy Anderson M.D. on 08/06/2016 at 16:26 Date of Service: 08/07/16 1256 PROCEDURE: MRI BRAIN WITHOUT CONTRAST ([id number]) INDICATIONS: Stroke IMPRESSION: The medial aspect of the left cerebellar peduncle shows a small 8 x 9 mm area of acute or subacute ischemic injury without mass effect or hemorrhage. This presumably is a manifestation of microvascular atherosclerotic change. Dictated by: Tobin Rosenberg M.D. on 08/07/2016 at 15:44 Additional Diagnostics Date of Service: 08/08/16 0500 PROCEDURE: US RENAL WITH ARTERIES DUPLEX DOPPLER SONOGRAM, LIMITED INDICATIONS: uncontrolled HTN, NAKIA IMPRESSION: 1. Tardus parvus waveforms are visualized within the bilateral renal arteries most notably within the hilar regions and the medullary regions consistent with bilateral renal artery stenosis. Dictated by: Eliane Farnsworth M.D. on 08/08/2016 at 12:05 Assessment & Plan Patient is a 60-year-old male with history of CVA in 2014 and TIA in 05/2016, diet controlled type II diabetes, hypertension, stage 4 CKD second to DM and smoking who presented to the emergency department with sudden onset of nausea with vomiting, lightheadedness, and disequilibrium. Day#7. 1. Hypertension, poa. Active. - Secondary to newly diagnosed bilateral Renal Artery Stenosis - Continue Nifedipine at current dosage - Continue IV Hydralazine PRN for SBP greater than 180 mmHg - Goal BP is 160-180 mmHg per Nephrology - Pt was initially started on Minoxidil, however this was discontinued - Metoprolol changed to Labetalol per nephrology - Nephrology on board 2. Acute Kidney Injury on CKD, poa. Active. - Baseline creatinine is approximately 2.5 - Today creatinine down to 3.31 - Renal US shows bilateral Renal Artery Stenosis - Nephrology on board and managing - Push PO fluids - Repeat BMP in AM 3. Renal Artery Stenosis, Bilateral, poa. Active. - As evidenced by US findings during this admission - This is likely the cause of pts significant BP elevation - Pt to have bilateral renal artery stenting on 08/12/2016 - Renal stenting by Dr. Vernon this am - Nephrology following 4. Benign Positional Vertigo, poa. Resolved. - Continue Meclizine PRN 5. Hx of Recent CVA - Continue Aspirin - Continue Plavix - Pt has known carotid stenosis but has not yet had any intervention for this 6. Hypothyroidism - Continue Levothyroxine 7. Diabetes Mellitus, Type II - Well controlled - Continue checking FSBS q AC and HS - Continue low-dose SSI 8. Tobacco Use Disorder - Nicotine Patch - Pt counseled to quit smoking Dispo: Anticipate discharge in 1-2 days. SW working on SNF or home with HH. GI Prophylaxis: H2 olga VTE Mechanical Devices: Intermittant Pneumatic CD Resuscitation Status: DNR/DNI:Do Not Resuscitate/Intubate Time spent 30 minutes Attending Statement I have seen and evaluated patient at bedside and directly supervised in the care provided by resident physician. I agree with above documentation. Leisa Ashford DO Aug 13, 2016 08:49 Chaz Fulton DO Aug 13, 2016 13:40
[2016-08-13] MEDS ORDERED: Heparin 5,000 Units/500 mL NS Premix IV ONE (10:22)
[2016-08-13] MEDS ORDERED: 0.9% Sodium Chloride 1,000 ML ONE (10:23)
[2016-08-13] MEDS ORDERED: fentaNYL-PF 50 mCg/mL 2 mL Inj ONE ×2 (10:43→11:50)
--- NOTE | 2016-08-13 10:49 | NUR ---
Off floor Patient brought down to [employer] approx 1035. 2 IV's patent. Sodium bicarbonate running as ordered.
[2016-08-13] MEDS ORDERED: Heparin 1,000 Unit/mL 10 mL Inj ONE (11:17)
--- NOTE | 2016-08-13 12:10 | PCM.PNMED ---
Subjective Date of Service Aug 13, 2016 Subjective Patient is scheduled for a renal angiogram with angioplasty and stent placement later this morning. I discussed the case at length with Dr. Vernon, the patient and his son. Beside explaining the risks of untreated hypertension versus the risks of contrast and further injury to the kidney. He will be hydrated pre- and post treatment. Exam Vital Signs Vital Sign - Last Date Time Temp Pulse Resp B/P Pulse Ox O2 Delivery O2 Flow Rate FiO2 08/13/16 00:56 36.5 61 16 182/81 96 Room Air Intake and Output 08/12/16 08/12/16 08/13/16 Cumulative From/Thru 15:00 23:00 07:00 08/06/16 13:22 - 08/13/16 06:34 Intake Total 1172 ml 708 ml 14317 ml Output Total 1050 ml 1100 ml 20956 ml Balance 122 ml -392 ml -1421 ml Intake Oral 1172 ml 708 ml 7100 ml IV Total 3149 ml Output Urine Total 1050 ml 1100 ml 90033 ml # Voids 2 # Bowel Movements 2 Exam Neck is supple without adenopathy thyromegaly or jugular venous distention. Lungs are clear to auscultation. Heart is regular rhythmic with a soft systolic murmur. Abdomen is soft without any tenderness or rebound guarding masses or hepatosplenomegaly. Extremities do not show clubbing cyanosis or edema. Skin turgor is good and there is no evidence of any rashes. Lab and Diagnostics Result Diagram: 08/13/1662708/13/1628 X-Rays, CTs and MRIs Date of Service: 08/06/16 1527 PROCEDURE: CT BRAIN WITHOUT CONTRAST ([id number]) INDICATIONS: dizziness, vomiting IMPRESSION: No acute intracranial abnormality. Dictated by: Cassidy Anderson M.D. on 08/06/2016 at 16:26 Date of Service: 08/07/16 1256 PROCEDURE: MRI BRAIN WITHOUT CONTRAST ([id number]) INDICATIONS: Stroke IMPRESSION: The medial aspect of the left cerebellar peduncle shows a small 8 x 9 mm area of acute or subacute ischemic injury without mass effect or hemorrhage. This presumably is a manifestation of microvascular atherosclerotic change. Dictated by: Tobin Rosenberg M.D. on 08/07/2016 at 15:44 Additional Diagnostics Date of Service: 08/08/16 0500 PROCEDURE: US RENAL WITH ARTERIES DUPLEX DOPPLER SONOGRAM, LIMITED INDICATIONS: uncontrolled HTN, NAKIA IMPRESSION: 1. Tardus parvus waveforms are visualized within the bilateral renal arteries most notably within the hilar regions and the medullary regions consistent with bilateral renal artery stenosis. Dictated by: Eliane Farnsworth M.D. on 08/08/2016 at 12:05 Assessment & Plan Impression #1 renal artery stenosis bilateral renal vascular hypertension #2 hypertension with hypertensive heart disease and hypertensive nephrosclerosis # 3 chronic kidney disease stage Recommendations #1 I would like to see how his blood pressure response to the intervention and I will assist you in further dosages of appropriate medications to bring his blood pressure down following his procedure. Obviously we need to continue his posttreatment hydration and I will be rechecking his lab in the morning. GI Prophylaxis: H2 olga VTE Mechanical Devices: Intermittant Pneumatic CD Resuscitation Status: DNR/DNI:Do Not Resuscitate/Intubate Vijay Woodson DO Aug 13, 2016 12:10
--- NOTE | 2016-08-13 13:26 | DI95 ---
[address] [address] INTERVENTIONAL CARDIAC CATHETERIZATION PATIENT: BEN HALL : 1955 MR#: [id number] ADMIT: 08/06/2016 JOB ID: [id number] DATE OF PROCEDURE: 08/13/2016 PATIENT PROFILE: The patient is a 60 years old male who has severe uncontrolled systemic hypertension. Renal artery duplex reported consistent with bilateral renal artery stenosis. PROCEDURE: 1. Conscious sedation for 1 hour and 7 minutes. 2. Vascular access from the right groin. 3. Abdominal aortogram with CO2 injection. 4. Selective right renal artery angiogram. 5. FlowWire into the right renal artery. VASCULAR CLOSURE DEVICE: None. COMPLICATIONS: None. METHOD: Conscious sedation was achieved with IV Versed and IV fentanyl. Vascular access was obtained from the right groin under 1% lidocaine local anesthesia using a 6-Brazilian sheath. It was somewhat difficult to advanced a 0.035 wire into the abdominal aorta due to diffuse atherosclerotic plaque of the right iliac artery. This was achieved with a Kumpe catheter and a Glidewire. It was then exchanged over an exchange length J-wire into a 5-Brazilian pigtail catheter. The pigtail catheter was placed in the T12-L1 and L1 -L2 level. Abdominal aortogram was performed in the AP view by injecting CO2 for 30 cc. It demonstrated the origin of the bilateral renal arteries is at the L2 level. Heparin 2,000 units were given. A 6-Brazilian IM catheter was then placed at the right renal artery. A [employer] wire was used to anchor this catheter. Selective right renal angiogram was performed in the AP view by injecting diluted contrast. A FloWire was then directed into this right renal artery and pressure gradient across the lesion was obtained. Following sheath removal, hemostasis was achieved by manual compression. The patient tolerated the procedure well. He was transferred to [facility] in good condition. TOTAL CARBON DIOXIDE USED: 100 mL. TOTAL CONTRAST USED: 5 mL. FLUOROSCOPY TIME: 4.4 minutes. RESULTS: 1. There is single right renal and single left renal artery. Both of them takeoff at the L2 body level. 2. There is a 30% stenosis in the mid portion of the right renal artery with no pressure gradient across the lesion. 3. Nonselective left renal artery angiogram shows no stenosis. [facility]
--- NOTE | 2016-08-13 15:33 | NUR ---
[place] [facility] [place] Per Olvin CHRISTINE strict bedrest until 183. Tegkristina in R tracee c/d/i.
[2016-08-13] MEDS: NIFEdipine 30 mg ER24 Tablet PO SCH (16:18)
[2016-08-13] MEDS: Insulin GLARgine 100 Unit/mL Syringe SUBQ SCH (21:00)
[2016-08-14] VITALS (7 sets, daily range): BP systolic 144–177; BP diastolic 69–81; PULSE 65–75; RESP 17–20; O2SAT 93–97
[2016-08-14] MEDS: Sodium Chloride LOK Flush 10 mL Syringe IVFLUSH SCH ×3 (00:35→16:08)
--- NOTE | 2016-08-14 03:52 | NUR ---
Mood, Dressing: Tegaderm dressing to right groin with minimal amount of unchanged sanguineous drainage. Site soft, no hematoma. Pt's was a little quieter with conversation at bedtime. After RN asked about what he was thinking about, pt stated he was a little upset about the results of yesterday. He stated, "I wish they would have put the stents in and sent me home". Pt has been able to get more blocks of sleep tonight.
[2016-08-14 06:55] LABS: Mean Corpuscular Hemoglobin 27.4 pg (27.0-35.0); Mean Corpuscular Volume 83.3 fL (81-100)
[2016-08-14] MEDS: Insulin LISPRO 300 Unit/3 mL Inj SUBQ SCH ×4 (08:00→21:52)
[2016-08-14] MEDS: NIFEdipine 30 mg ER24 Tablet PO SCH (09:50)
[2016-08-14] MEDS: Polyethylene Glycol (PEG) 17 Gm Powder PO SCH (09:51)
--- NOTE | 2016-08-14 11:46 | PCM.PNMED ---
Subjective Date of Service Aug 14, 2016 Subjective Clinically the patient's creatinine is a bit better today following his renal angiogram. His blood pressure remains elevated and he denies any chest pain, shortness of breath, cough, or wheezing. Exam Vital Signs Vital Sign - Last Date Time Temp Pulse Resp B/P Pulse Ox O2 Delivery O2 Flow Rate FiO2 08/14/16 10:43 75 08/14/16 08:58 36.5 19 155/79 95 Room Air Intake and Output 08/13/16 08/13/16 08/14/16 Cumulative From/Thru 15:00 23:00 07:00 08/06/16 13:22 - 08/14/16 06:33 Intake Total 400 ml 862 ml 94289 ml Output Total 875 ml 57945 ml Balance 400 ml -13 ml -1034 ml Intake Oral 400 ml 500 ml 8000 ml IV Total 362 ml 3511 ml Output Urine Total 875 ml 76454 ml # Voids 2 # Bowel Movements 2 Exam HEENT examination is remarkable for pale sclera. Neck supple without adenopathy thyromegaly or jugular venous distention. Lungs were clear to auscultation. Heart is regular rhythm; soft systolic murmur and an S4 is noted. Abdomen is soft without any tenderness rebound guarding masses or hepatosplenomegaly. Extremities show significant clubbing, cyanosis or edema. Lab and Diagnostics Result Diagram: 08/14/16 0635 08/14/16 0635 X-Rays, CTs and MRIs Date of Service: 08/06/16 1527 PROCEDURE: CT BRAIN WITHOUT CONTRAST ([id number]) INDICATIONS: dizziness, vomiting IMPRESSION: No acute intracranial abnormality. Dictated by: Cassidy Anderson M.D. on 08/06/2016 at 16:26 Date of Service: 08/07/16 1256 PROCEDURE: MRI BRAIN WITHOUT CONTRAST ([id number]) INDICATIONS: Stroke IMPRESSION: The medial aspect of the left cerebellar peduncle shows a small 8 x 9 mm area of acute or subacute ischemic injury without mass effect or hemorrhage. This presumably is a manifestation of microvascular atherosclerotic change. Dictated by: Tobin Rosenberg M.D. on 08/07/2016 at 15:44 Additional Diagnostics Date of Service: 08/08/16 0500 PROCEDURE: US RENAL WITH ARTERIES DUPLEX DOPPLER SONOGRAM, LIMITED INDICATIONS: uncontrolled HTN, NAKIA IMPRESSION: 1. Tardus parvus waveforms are visualized within the bilateral renal arteries most notably within the hilar regions and the medullary regions consistent with bilateral renal artery stenosis. Dictated by: Eliane Farnsworth M.D. on 08/08/2016 at 12:05 Assessment & Plan Impression #1 hypertension with hypertensive heart disease and hypertensive nephrosclerosis #2 chronic kidney disease stage IV Recommendations #1 left and spironolactone 25 mg once a day and follow his lab and his blood pressures. GI Prophylaxis: H2 olga VTE Mechanical Devices: Intermittant Pneumatic CD Resuscitation Status: DNR/DNI:Do Not Resuscitate/Intubate Vijay Woodson DO Aug 14, 2016 11:45
--- NOTE | 2016-08-14 13:16 | PCM.PNMED ---
Subjective Date of Service Aug 14, 2016 Subjective Overnight events: Elevated BP. Today, patient has no concerns or complaints. Requesting to know what the plan is with no intervention made to his kidneys. Denies GILL, vision changes, CP, or nausea. Exam Vital Signs Vital Sign - Last Date Time Temp Pulse Resp B/P Pulse Ox O2 Delivery O2 Flow Rate FiO2 08/14/16 10:43 75 08/14/16 08:58 36.5 19 155/79 95 Room Air Intake and Output 08/13/16 08/13/16 08/14/16 Cumulative From/Thru 15:00 23:00 07:00 08/06/16 13:22 - 08/14/16 06:33 Intake Total 400 ml 862 ml 50850 ml Output Total 875 ml 94619 ml Balance 400 ml -13 ml -1034 ml Intake Oral 400 ml 500 ml 8000 ml IV Total 362 ml 3511 ml Output Urine Total 875 ml 51284 ml # Voids 2 # Bowel Movements 2 Exam Gen: NAD, laying comfortably in bed on side HEENT: NCAT. No sclera icterus. Neck supple, pink mucous membranes Cardio: Regular rate and rhythm, no murmurs appreciated. . Lungs: CTAB Abd: Soft, obese, non-tender, normal bowel tones Ext: No edema, no clubbing. Skin: Warm, dry and intact Psych: Alert and oriented, normal speech Lab and Diagnostics Result Diagram: 08/14/16 0635 08/14/16 0635 X-Rays, CTs and MRIs Date of Service: 08/06/16 1527 PROCEDURE: CT BRAIN WITHOUT CONTRAST ([id number]) INDICATIONS: dizziness, vomiting IMPRESSION: No acute intracranial abnormality. Dictated by: Cassidy Anderson M.D. on 08/06/2016 at 16:26 Date of Service: 08/07/16 1256 PROCEDURE: MRI BRAIN WITHOUT CONTRAST ([id number]) INDICATIONS: Stroke IMPRESSION: The medial aspect of the left cerebellar peduncle shows a small 8 x 9 mm area of acute or subacute ischemic injury without mass effect or hemorrhage. This presumably is a manifestation of microvascular atherosclerotic change. Dictated by: Tobin Rosenberg M.D. on 08/07/2016 at 15:44 Additional Diagnostics Date of Service: 08/08/16 0500 PROCEDURE: US RENAL WITH ARTERIES DUPLEX DOPPLER SONOGRAM, LIMITED INDICATIONS: uncontrolled HTN, NAKIA IMPRESSION: 1. Tardus parvus waveforms are visualized within the bilateral renal arteries most notably within the hilar regions and the medullary regions consistent with bilateral renal artery stenosis. Dictated by: Eliane Farnsworth M.D. on 08/08/2016 at 12:05 Assessment & Plan Patient is a 60-year-old male with history of CVA in 2014 and TIA in 05/2016, diet controlled type II diabetes, hypertension, stage 4 CKD second to DM and smoking who presented to the emergency department with sudden onset of nausea with vomiting, lightheadedness, and disequilibrium. Day#8. 1. Hypertension, poa. Improving. - Most likely secondary to newly diagnosed bilateral Renal Artery Stenosis - Continue Nifedipine at current dosage - Continue IV Hydralazine PRN for SBP greater than 160 mmHg - Pt was initially started on Minoxidil, however this was discontinued - Metoprolol changed to Labetalol per nephrology - Nephrology on board, appreciate time and expertise - Spironolactone added - Current goal BP is 140-150 mmHg 2. Acute Kidney Injury on CKD, poa. Improving. - Baseline creatinine is approximately 2.5 - Today creatinine down to 3.31 - Renal US shows bilateral Renal Artery Stenosis - Nephrology on board and managing - Push PO fluids - Repeat BMP in AM 3. Renal Artery Stenosis, Bilateral, poa. Active. - As evidenced by US findings during this admission - This is likely the cause of pts significant BP elevation - No stenting required for this after interventional procedure by Dr. Vernon - Nephrology following 4. Benign Positional Vertigo, poa. Resolved. - Continue Meclizine PRN 5. Hx of Recent CVA - Continue Aspirin - Continue Plavix - Pt has known carotid stenosis but has not yet had any intervention for this 6. Hypothyroidism - Continue Levothyroxine 7. Diabetes Mellitus, Type II - Well controlled - Continue checking FSBS q AC and HS - Continue low-dose SSI 8. Tobacco Use Disorder - Nicotine Patch - Pt counseled to quit smoking GI prophy: H2 olga DVT prophy: SCD CODE: DNR/DNI Dispo: Anticipate discharge tomorrow. Patient to follow up with either Dr. Narvaez or Dr. Woodson in 2-3 weeks as out patient. GI Prophylaxis: H2 olga VTE Mechanical Devices: Intermittant Pneumatic CD Resuscitation Status: DNR/DNI:Do Not Resuscitate/Intubate Time spent 25 minutes Attending Statement I have seen and examined patient at bedside in addition to directly supervising care provided by resident physician. I agree with above documentation. Leisa Ashford DO Aug 14, 2016 10:53 Chaz Fulton DO Aug 15, 2016 07:24
--- NOTE | 2016-08-14 14:56 | NUR ---
Faxed referral to [facility] inpatient rehab and [place] inpatient rehab per MANAGER CAMP
--- NOTE | 2016-08-14 15:00 | NUR ---
Social Work-continued d/c planning: Data:EMR Reviewed .pt is on day 8 of hospitalization for Acute CVA per H&P. PT/OT/ST continue to recommend inpt rehab. SW followed up with pt at bedside, SW role explained. Pt is still unsure about discharge, but is willing to have SW send referrals to both inpt rehabs for review. Pt would like to SW to follow up after SW obtains an answer from these facilities. SW asked UR specialist Bev to send referral to [facility] inpt rehab and [place] inpt rehab for review. SW discussed SNF, pt is not interested. Pt would prefer to return home with HH or outpt PT if inpt rehab does not work out. SW to follow up again with pt tomorrow. SW will continue to follow. Assessment:Pt who would benefit from inpt rehab. Plan:. [facility] inpt rehab and [place] inpt rehab have been faxed. Insurance authorization will need to be obtained. Pt declining SNF, if inpt rehab does not work out, would rather return home with HH vs outpt services. SW will continue to follow. LALITA Macias
--- NOTE | 2016-08-14 17:01 | NUR ---
Activity: Patient has been in bed in his room most of the day. He has had no complaints and no pain issues and an uneventful day.
[2016-08-14] MEDS: Insulin GLARgine 100 Unit/mL Syringe SUBQ SCH (21:00)
[2016-08-15] VITALS (8 sets, daily range): BP systolic 137–196; BP diastolic 70–82; PULSE 61–73; RESP 16–21; O2SAT 94–97
[2016-08-15] MEDS: Sodium Chloride LOK Flush 10 mL Syringe IVFLUSH SCH ×3 (00:45→16:30)
[2016-08-15 07:47] LABS: Mean Corpuscular Hemoglobin 27.4 pg (27.0-35.0); Mean Corpuscular Volume 83.7 fL (81-100)
[2016-08-15] MEDS: Insulin LISPRO 300 Unit/3 mL Inj SUBQ SCH ×4 (08:00→21:25)
[2016-08-15] MEDS: NIFEdipine 30 mg ER24 Tablet PO SCH (09:18)
[2016-08-15] MEDS: Polyethylene Glycol (PEG) 17 Gm Powder PO SCH (09:19)
--- NOTE | 2016-08-15 10:40 | PCM.PNMED ---
Subjective Date of Service Aug 15, 2016 Subjective No overnight events. Patient frustrated this morning eager to go home. Otherwise no concerns or complaints. Denies CP, SOB, fevers, chills or nausea. Exam Vital Signs Vital Sign - Last Date Time Temp Pulse Resp B/P Pulse Ox O2 Delivery O2 Flow Rate FiO2 08/15/16 08:44 36.5 64 19 196/70 97 Room Air Intake and Output 08/14/16 08/14/16 08/15/16 Cumulative From/Thru 14:59 22:59 06:59 08/06/16 13:22 - 08/15/16 06:22 Intake Total 836 ml 400 ml 99327 ml Output Total 1275 ml 900 ml 26805 ml Balance -439 ml -500 ml -1973 ml Intake Oral 836 ml 400 ml 9236 ml IV Total 3511 ml Output Urine Total 1275 ml 900 ml 92265 ml # Voids 2 # Bowel Movements 2 Exam Gen: NAD, laying comfortably in bed, visiting with son HEENT: NCAT. No sclera icterus. Neck supple, pink mucous membranes Cardio: Regular rate and rhythm, no murmurs appreciated. . Lungs: CTAB Abd: Soft, obese, non-tender, normal bowel tones Ext: No edema, no clubbing. Skin: Warm, dry and intact Psych: Alert and oriented, normal speech, slightly grumpy IVs and Medications Medications Reviewed: Medications were reviewed in detail Lab and Diagnostics Result Diagram: 08/15/16 0710 08/15/16 0710 X-Rays, CTs and MRIs Date of Service: 08/06/16 1527 PROCEDURE: CT BRAIN WITHOUT CONTRAST ([id number]) INDICATIONS: dizziness, vomiting IMPRESSION: No acute intracranial abnormality. Dictated by: Cassidy Anderson M.D. on 08/06/2016 at 16:26 Date of Service: 08/07/16 1256 PROCEDURE: MRI BRAIN WITHOUT CONTRAST ([id number]) INDICATIONS: Stroke IMPRESSION: The medial aspect of the left cerebellar peduncle shows a small 8 x 9 mm area of acute or subacute ischemic injury without mass effect or hemorrhage. This presumably is a manifestation of microvascular atherosclerotic change. Dictated by: Tobin Rosenberg M.D. on 08/07/2016 at 15:44 Additional Diagnostics Date of Service: 08/08/16 0500 PROCEDURE: US RENAL WITH ARTERIES DUPLEX DOPPLER SONOGRAM, LIMITED INDICATIONS: uncontrolled HTN, NAKIA IMPRESSION: 1. Tardus parvus waveforms are visualized within the bilateral renal arteries most notably within the hilar regions and the medullary regions consistent with bilateral renal artery stenosis. Dictated by: Eliane Farnsworth M.D. on 08/08/2016 at 12:05 Assessment & Plan Patient is a 60-year-old male with history of CVA in 2014 and TIA in 05/2016, diet controlled type II diabetes, hypertension, stage 4 CKD second to DM and smoking who presented to the emergency department with sudden onset of nausea with vomiting, lightheadedness, and disequilibrium. Day#9. 1. Hypertension, poa. Improving. - Most likely secondary to newly diagnosed bilateral Renal Artery Stenosis - Continue Nifedipine at current dosage - Continue IV Hydralazine PRN for SBP greater than 160 mmHg - Pt was initially started on Minoxidil, however this was discontinued - Metoprolol changed to Labetalol per nephrology - Nephrology on board, appreciate time and expertise - Spironolactone now BID - Current goal BP is 140-150 mmHg 2. Acute Kidney Injury on CKD, poa. Improving. - Baseline creatinine is approximately 2.5 - Today creatinine down to 3.31 (3.37) - Renal US shows bilateral Renal Artery Stenosis - Nephrology on board and managing - Push PO fluids - Repeat BMP in AM 3. Renal Artery Stenosis, Bilateral, poa. Active. - As evidenced by US findings during this admission - This is likely the cause of pts significant BP elevation - No stenting required for this after interventional procedure by Dr. Vernon - Nephrology following 4. Benign Positional Vertigo, poa. Resolved. - Continue Meclizine PRN 5. Hx of Recent CVA - Continue Aspirin - Continue Plavix - Pt has known carotid stenosis but has not yet had any intervention for this 6. Hypothyroidism - Continue Levothyroxine 7. Diabetes Mellitus, Type II - Well controlled - Continue checking FSBS q AC and HS - Continue low-dose SSI 8. Tobacco Use Disorder - Nicotine Patch - Pt counseled to quit smoking GI prophy: H2 olga DVT prophy: SCD CODE: DNR/DNI Dispo: Anticipate discharge tomorrow. Patient to follow up with either Dr. Narvaez or Dr. Woodson in 2-3 weeks as out patient. GI Prophylaxis: H2 ogla VTE Mechanical Devices: Intermittant Pneumatic CD Resuscitation Status: DNR/DNI:Do Not Resuscitate/Intubate Time spent 30 minutes Attending Statement I have seen and evaluated patient at bedside in addition to directly supervising care provided by resident physician. I agree with above documentation. Leisa Ashford DO Aug 15, 2016 10:37 Chaz Fulton DO Aug 16, 2016 08:20
--- NOTE | 2016-08-15 14:38 | NUR ---
NUTRITION FOLLOW UP ASSESS: 60 YO male admitted with acute kidney injury on chronic stage IV kidney disease. Per notes, CARLOS is improving w/ no stent required. Pt is being followed by licensed appraiser. Pt PO intake remains at 100%. PMHx: HTN, DM type 2, CVA , Stage IV kidney disease, CAD, inferior KS. LABS: Reviewed. BUN 46, Provider Network Manager 3.37, Gluc 137, Ca 8.0, Alb 2.7 MEDS: Reviewed. Insulin, vitamin D3, lipitor. GI: BMx2 (08/12) WT: 100.2 kg. IBW: 71.36 kg. Same admit weight. DIET: Heart Healthy - Consistent carbohydrate. PO intake 100% trays consistently. EST. NEEDS (BMI/STAGE IV KIDNEY DISEASE): Kcals: 0646-1085 kcals (20-25 kcals/kg BW) Protein: 55-70 g protein (0.8-1.0 g/kg IBW) NUTRITION DIAGNOSIS: 1) No nutritional diagnosis at this time. NUTRITION INTERVENTION: 1) No intervention at this time. MONITOR / EVAL: PO intake, labs, POC. Follow per low nutritional risk guidelines. Addendum: 08/15/16 at [address] Auxiliary student documentation reviewed. I agree with above documentation. Valerio Archer, FUNMI, CD
--- NOTE | 2016-08-15 15:00 | NUR ---
Social Work: Continued d/c planning Data: Pt is on day 9 of hospitalization. EMR reviewed. MARKING MACHINE TENDER notified by UR specialist that inpt rehab facilities are wondering what pt's d/c plan would be after going to their inpt rehab, MARKING MACHINE TENDER met with pt at bedside. Pt states that his son is able to help him at d/c and that he has other family members that he can call if needed. MARKING MACHINE TENDER will continue to follow. Assessment: Pt who is independent at baseline. Plan: Pt will d/c likely to inpt rehab, [facility] reviewing, pt states he prefers [facility]. MARKING MACHINE TENDER will continue to follow. LALITA Pereira
--- NOTE | 2016-08-15 15:26 | PCM.PNMED ---
Subjective Date of Service Aug 15, 2016 Subjective Patient's blood pressure is continuing to improve. He did have some slight increase in his creatinine to 3.37 today which I feel is important due to his position of his blood pressure. I had a long discussion with both patient and his son quite frustrated with the prosthesis. I tried to explain to them once again the multiple factors with his blood pressure and balancinghis renal function. Exam Vital Signs Vital Sign - Last Date Time Temp Pulse Resp B/P Pulse Ox O2 Delivery O2 Flow Rate FiO2 08/15/16 12:51 36.7 73 21 157/82 95 Room Air Intake and Output 08/14/16 08/14/16 08/15/16 Cumulative From/Thru 15:00 23:00 07:00 08/06/16 13:22 - 08/15/16 06:22 Intake Total 836 ml 400 ml 62549 ml Output Total 1275 ml 900 ml 79836 ml Balance -439 ml -500 ml -1973 ml Intake Oral 836 ml 400 ml 9236 ml IV Total 3511 ml Output Urine Total 1275 ml 900 ml 99456 ml # Voids 2 # Bowel Movements 2 Exam Neck supple without adenopathy thyromegaly or jugular venous distention. Lungs were clear to auscultation. Heart is regular and rhythmical with a soft systolic murmur. Abdomen soft without any tenderness rebound guarding masses or hepatosplenomegaly. Lab and Diagnostics Result Diagram: 08/15/16 0710 08/15/16 0710 X-Rays, CTs and MRIs Date of Service: 08/06/16 1527 PROCEDURE: CT BRAIN WITHOUT CONTRAST ([id number]) INDICATIONS: dizziness, vomiting IMPRESSION: No acute intracranial abnormality. Dictated by: Cassidy Anderson M.D. on 08/06/2016 at 16:26 Date of Service: 08/07/16 1256 PROCEDURE: MRI BRAIN WITHOUT CONTRAST ([id number]) INDICATIONS: Stroke IMPRESSION: The medial aspect of the left cerebellar peduncle shows a small 8 x 9 mm area of acute or subacute ischemic injury without mass effect or hemorrhage. This presumably is a manifestation of microvascular atherosclerotic change. Dictated by: Tobin Rosenberg M.D. on 08/07/2016 at 15:44 Additional Diagnostics Date of Service: 08/08/16 0500 PROCEDURE: US RENAL WITH ARTERIES DUPLEX DOPPLER SONOGRAM, LIMITED INDICATIONS: uncontrolled HTN, NAKIA IMPRESSION: 1. Tardus parvus waveforms are visualized within the bilateral renal arteries most notably within the hilar regions and the medullary regions consistent with bilateral renal artery stenosis. Dictated by: Eliane Farnsworth M.D. on 08/08/2016 at 12:05 Assessment & Plan Impression #1 hypertension with hypertensive heart disease and hypertensive nephrosclerosis #2 mild acute kidney injury secondary to normalization of his blood pressure Recommendations #1 increase his spironolactone to twice a day. GI Prophylaxis: H2 olga VTE Mechanical Devices: Intermittant Pneumatic CD Resuscitation Status: DNR/DNI:Do Not Resuscitate/Intubate Vijay Woodson DO Aug 15, 2016 15:26
--- NOTE | 2016-08-15 18:09 | NUR ---
Activity: Patient has been up to the BR with 1x assisst . Per physical therapist patient became dizzy when he stood to walk and his blood pressure dropped to systolic 99. Physical therapist sat him back on the bed and did not walk his at that time. was notified of this information.
[2016-08-15] MEDS: Insulin GLARgine 100 Unit/mL Syringe SUBQ SCH (21:23)
[2016-08-16] VITALS (7 sets, daily range): BP systolic 144–183; BP diastolic 76–80; PULSE 61–68; RESP 18; O2SAT 94–96
[2016-08-16] MEDS: Sodium Chloride LOK Flush 10 mL Syringe IVFLUSH SCH ×3 (00:51→16:30)
--- NOTE | 2016-08-16 06:37 | NUR ---
Uneventful night Patient denies pain/discomfort. Alert and oriented. reports mild left leg weakness. Blood sugar 179 at bed time. patient given 10 units of lantus. blood sugar rechecked at 0500 and was 119. will continue to monitor
[2016-08-16] MEDS: Insulin LISPRO 300 Unit/3 mL Inj SUBQ SCH ×4 (08:00→20:26)
[2016-08-16] MEDS: Polyethylene Glycol (PEG) 17 Gm Powder PO SCH (08:49)
[2016-08-16] MEDS: NIFEdipine 30 mg ER24 Tablet PO SCH (08:49)
[2016-08-16] MEDS ORDERED: SPIR50TA2 PO (10:39)
[2016-08-16] MEDS ORDERED: LABE100T4 PO (10:39)
[2016-08-16] MEDS ORDERED: CHOL100043 PO (10:39)
[2016-08-16] MEDS ORDERED: ATOR40TA69 PO (10:39)
[2016-08-16] MEDS ORDERED: LABE200T PO (10:39)
[2016-08-16] MEDS ORDERED: HYG25 PO (10:39)
[2016-08-16] MEDS ORDERED: NIFE30TA92 PO (10:39)
--- NOTE | 2016-08-16 10:45 | PCM.DIMED ---
Leisa Ashford DO 08/16/16 1043: Discharge Instructions Date of Service Aug 16, 2016 Dates of Hospitalization Aug 06, 2016 at 17:50 Discharge Diagnosis Discharge Diagnosis Possible TIA vs dysequilibrium, present on admission, improving Persistent hypertension, poa. Improving. Acute Kidney Injury on CKD, stage 4, poa. Improving. Renal Artery Stenosis, Bilateral, poa. Active. Benign Positional Vertigo, poa. Resolved. Hx of Recent CVA Hypothyroidism Diabetes Mellitus, Type II Tobacco Use Disorder Medication Instructions Chlorthalidone 25mg by mouth daily Nifedipine 60mg by mouth daily Labetalol 300mg by mouth twice daily Spirolactone 50mg by mouth twice daily Vit D 2000IU by mouth daily Diet Heart Healthy, Diabetic, Renal Diet Activity Other (Patient going to inpatient rehab.) Call your provider Chest pain, Weakness (unilateral) Patient Instructions There are your new medications to control your elevated blood pressure: Chlorthalidone 25mg by mouth daily Nifedipine 60mg by mouth daily Labetalol 300mg by mouth twice daily Spirolactone 50mg by mouth twice daily Your Vit D levels were very low, so we are adding: Vit D 2000IU by mouth daily It is very important that you get an evaluation for possible sleep apnea since this can contribute significantly to your blood pressure. You are to follow up with Dr. Woodson your assistant project manager in 3 weeks. Go to ED if you have any sudden onset of headaches, vision changes, dizziness with nausea, vomiting. Follow-up Provider: Vijay Woodson DO Follow-up with PCP in: 3 weeks Chaz Fulton DO 08/17/16 1147: Discharge Instructions Attending's Statement Read and agree. Due to issue with insurance coverage, discharge has been unfortunately delayed, still pending. Leisa Ashford DO Aug 16, 2016 10:43 Chaz Fulton DO Aug 17, 2016 11:47
--- NOTE | 2016-08-16 10:49 | PCM.DC.MED ---
Discharge Summary Date of Service Aug 16, 2016 Dates of Hospitalization Date of Hospital Admission Aug 06, 2016 at 17:50 Date of Discharge: Aug 16, 2016 Providers: Admitting Physician: Senait Adkins MD Primary Care Physician: Servando Rodriguez MD Attending Physician: Senait Adkins MD Diagnosis at Time of Discharge Diagnosis at Time of Discharge Possible TIA vs dysequilibrium, present on admission, improving Persistent hypertension, poa. Improving. Acute Kidney Injury on CKD, stage 4, poa. Improving. Renal Artery Stenosis, Bilateral, poa. Active. Benign Positional Vertigo, poa. Resolved. Hx of Recent CVA Hypothyroidism Diabetes Mellitus, Type II Tobacco Use Disorder Consultations Neurology: Jose Ren MD Nephrology: Kareen Phan MD, Vijay Woodson DO Procedures XRay, CTs & MRIs Date of Service: 08/06/16 1527 PROCEDURE: CT BRAIN WITHOUT CONTRAST ([id number]) INDICATIONS: dizziness, vomiting IMPRESSION: No acute intracranial abnormality. Dictated by: Cassidy Anderson M.D. on 08/06/2016 at 16:26 Date of Service: 08/07/16 1256 PROCEDURE: MRI BRAIN WITHOUT CONTRAST ([id number]) INDICATIONS: Stroke IMPRESSION: The medial aspect of the left cerebellar peduncle shows a small 8 x 9 mm area of acute or subacute ischemic injury without mass effect or hemorrhage. This presumably is a manifestation of microvascular atherosclerotic change. Dictated by: Tobin Rosenberg M.D. on 08/07/2016 at 15:44 Other Diagnostics Date of Service: 08/08/16 0500 PROCEDURE: US RENAL WITH ARTERIES DUPLEX DOPPLER SONOGRAM, LIMITED INDICATIONS: uncontrolled HTN, NAKIA IMPRESSION: 1. Tardus parvus waveforms are visualized within the bilateral renal arteries most notably within the hilar regions and the medullary regions consistent with bilateral renal artery stenosis. Dictated by: Eliane Farnsworth M.D. on 08/08/2016 at 12:05 Brief History 60 year old male with a PMH significant for hypertension, CAD s/p 4 stents, PVD , bilateral carotid stenosis, and prior CVA presents with left sided weakness and 24h of ongoing dizziness with N/V. Pt states that he was feeling alright until he had a bm and arose from the toilet. Upon standing he became dizzy and his left leg was unable to support him and he leans to the left. He states that he also had left arm weakness. He has experienced this in the past with hx of CVA and recent TIA in may 2016, both of which were nearly identical to this presentation. Pt states that he slept through the night and the symptoms resolved. He presents today because the nauseas and vomiting continue and he has not been able to maintain adequate hydration. He denies fever, chills, has chronic diarrhea and hx of dysconjugate gaze. Denies other ROS. Pt has known Carotid stenosis and has not been evaluated yet for intervention. CT of the head was negative for acute bleed; Stroke protocol imaging has been postponed or avoided due to severe kidney impairment, and the patient states that he was suppose to see Dr. Narvaez but couldn't get to the office due to this illness. Pt has chronically elevated troponin, and creatinine is now 3.35 from baseline in the mid-upper 2's, and he has a mild leukocytosis. Hospital Course Patient is a 60-year-old male with history of CVA in 2014 and TIA in 05/2016, diet controlled type II diabetes, hypertension, stage 4 CKD second to DM and smoking who presented to the emergency department with sudden onset of nausea with vomiting, lightheadedness, and disequilibrium. Day#9. 1. Questionable TIA vs dysequilibrium, present on admission, improving - Pt presents with complaint of left sided weakness that has mostly resolved after 24 hours - Pt has known carotid stenosis from US done 05/29/16 - Brain CT shows no hemorrhage - Stroke protocol MRI unavailable due to Stage 4 ckd - Aspirin 325 mg daily - Plavix 75 mg daily - MRI negative for any acute findings - Dr Ren, neurology consulted; appreciate his expertise 2. Hypertension, poa. Improving. - Most likely secondary to newly diagnosed bilateral Renal Artery Stenosis - Continue Nifedipine at current dosage - Continue IV Hydralazine PRN for SBP greater than 160 mmHg - Pt was initially started on Minoxidil, however this was discontinued - Metoprolol changed to Labetalol per nephrology - Nephrology on board, appreciate time and expertise - Spironolactone now BID - Current goal BP is 140-150 mmHg 3. Acute Kidney Injury on CKD, poa. Improving. - Baseline creatinine is approximately 2.5 - Today creatinine down to 3.31 (3.37) - Renal US shows bilateral Renal Artery Stenosis - Nephrology on board and managing - Push PO fluids 4. Renal Artery Stenosis, Bilateral, poa. Active. - As evidenced by US findings during this admission - This is likely the cause of pts significant BP elevation - No stenting required for this after interventional procedure by Dr. Vernon - Nephrology following 5. Benign Positional Vertigo, poa. Resolved. - Continue Meclizine PRN 6. Hx of Recent CVA - Continue Aspirin - Continue Plavix - Pt has known carotid stenosis but has not yet had any intervention for this 7. Hypothyroidism - Continue Levothyroxine 8. Diabetes Mellitus, Type II - Well controlled - Continue checking FSBS q AC and HS - Continue low-dose SSI 9. Tobacco Use Disorder - Nicotine Patch - Pt counseled to quit smoking GI prophy: H2 olga DVT prophy: SCD CODE: DNR/DNI Exam Vital Signs (Last) Date Time Temp Pulse Resp B/P Pulse Ox O2 Delivery O2 Flow Rate FiO2 08/16/16 09:19 36.6 61 18 183/77 96 Room Air Test 08/06/16 13:40 08/06/16 13:46 08/06/16 23:59 08/07/16 06:07 Magnesium Level 1.9mg/dL (1.6-2.6) Hemoglobin A1c 7.3% (4.8-5.6) Troponin T 0.017ug/L (0.0-0.011) Prothrombin Time 9.6sec (8.1-12.5) Prothromb Time International Ratio 0.90ratio Lactic Acid Level 1.1mmol/L (0.4-2.0) Total Bilirubin 0.2mg/dL (0.0-1.2) Aspartate Amino Transf (AST/SGOT) 15U/L (0-50) Alanine Aminotransferase (ALT/SGPT) 23U/L (0-44) Alkaline Phosphatase 73U/L (25-160) Total Protein 5.0g/dL (6.4-8.4) Procalcitonin < 0.05ng/mL (See Comment) Test 08/08/16 06:20 08/12/16 06:05 08/13/16 06:28 08/15/16 07:10 Vitamin D 25-Hydroxy 6.3ng/mL (30.0-100.0) Parathyroid Hormone (Intact) 89pg/mL (15-65) Phosphorus Level 4.5mg/dL (2.5-4.9) Neutrophils (%) (Auto) 69.4% (40-74) Lymphocytes (%) (Auto) 18.7% (14-46) Monocytes (%) (Auto) 8.2% (4-12) Eosinophils (%) (Auto) 3.0% (0-5) Basophils (%) (Auto) 0.5% (0-3) Uric Acid 8.1mg/dL (2.6-7.2) White Blood Count 7.7th/mm3 (3.8-10.1) Red Blood Count 4.30mil/mm3 (4.40-5.80) Hemoglobin 11.8g/dL (13.8-17.2) Hematocrit 36.0% (41.0-50.0) Mean Corpuscular Volume 83.7fL (81-100) Mean Corpuscular Hemoglobin 27.4pg (27.0-35.0) Mean Corpuscular Hemoglobin Concent 32.8% (32.0-37.0) Red Cell Distribution Width 14.6% (12.3-15.4) Platelet Count 295bil/L (150-400) Test 08/16/16 06:35 Sodium Level 142mEq/L (134-144) Potassium Level 4.3mEq/L (3.5-5.2) Chloride Level 104mEq/L (97-108) Carbon Dioxide Level 25mmol/L (18-29) Blood Urea Nitrogen 45mg/dL (8-27) Creatinine 3.37mg/dL (0.76-1.27) Estimat Glomerular Filtration Rate 20mL/min (>59) Glucose Level 130mg/dL (60-99) Calcium Level 8.3mg/dL (8.5-10.1) Discharge Medications Discharge Medications Aspirin (Aspirin) 325 Mg Tablet 325 MG PO DAILY (Reported) Atorvastatin Calcium (Atorvastatin Calcium) 40 Mg Tablet 40 MG PO HS Prescribed by: LEISA STUART DO Chlorthalidone (Chlorthalidone) 25 Mg Tablet 25 MG PO DAILY Prescribed by: LEISA STUART DO Cholecalciferol (Vitamin D3) (Vitamin D) 1,000 Unit Tablet 2,000 UNIT PO DAILY Prescribed by: LEISA STUART DO Clopidogrel (Clopidogrel) 75 Mg Tablet 75 MG PO DAILY Prescribed by: JOSETTE VIRK DO Labetalol (Labetalol) 100 Mg Tablet 100 MG PO BID Prescribed by: LEISA STUART DO Labetalol (Labetalol) 200 Mg Tablet 200 MG PO BID Prescribed by: LEISA STUART DO Levothyroxine (Levothyroxine) 300 Mcg Tablet 300 MCG PO DAILY (Reported) Nifedipine ER (Adalat CC) 30 Mg Tablet 60 MG PO DAILY Prescribed by: LEISA STUART DO Spironolactone (Spironolactone) 50 Mg Tablet 50 MG PO BID Prescribed by: LEISA STUART DO Additional med instructions Chlorthalidone 25mg by mouth daily Nifedipine 60mg by mouth daily Labetalol 300mg by mouth twice daily Spirolactone 50mg by mouth twice daily Vit D 2000IU by mouth daily Followup Plan Patient Instructions There are your new medications to control your elevated blood pressure: Chlorthalidone 25mg by mouth daily Nifedipine 60mg by mouth daily Labetalol 300mg by mouth twice daily Spirolactone 50mg by mouth twice daily Your Vit D levels were very low, so we are adding: Vit D 2000IU by mouth daily You are to follow up with Dr. Woodson your electro optical engineer in 3 weeks. Go to ED if you have any sudden onset of headaches, vision changes, dizziness with nausea, vomiting. Follow-up Provider: Vijay Woodson DO Follow-up with PCP in: 3 weeks Time spent 30 minutes Attending Statement I have seen and evaluated patient in addition to directly superving care provide by resident physician. I agree with above document. Due to unfortunate complications with insurance coverage however, discharge could not proceed as planned originally. Pt remains in hospital with no planned changed in management at this time. Continue to monitor BPs which have demonstrated improved control. Leisa Stuart DO Aug 16, 2016 10:46 Chaz Fulton DO Aug 17, 2016 11:50
--- NOTE | 2016-08-16 11:17 | NUR ---
Spoke with [facility] liaison and she has accepted patient and she has started authorization for patient. She has beds and is just pending authorization at this point. If she can not get patient in today plan will be tomorrow. Updated BRICK BAKER and BRICK BAKER Metal Loader
--- NOTE | 2016-08-16 11:20 | NUR ---
Social Work Note-Continued Discharge Planning D/A: Pt admitted day #[address] Rodriguez as his PCP and [employer] as his insurance. Bedside visit today from [facility]. Patient has been accepted, pt and son aware of plan. Insurance authorization required, [facility] is actively working on auth and understand the patient is ready for discharge today. BRICK PAVING CHECKER met with patient and son to discuss details of the discharge plan, with patient medically ready today to d/c. PLAN: Pt to transfer to [facility], awaiting auth. Verified with Ca Strong ([phone]) Admission Coordinator. Informed that preference would be to have son transport to avoid out of pock wheelchair transport fees. Ca will notify Business Systems Administrator when auth is received. A guarantee can not be obtained that authorization can be obtained today. MICHELL GodfreySW
--- NOTE | 2016-08-16 14:15 | PCM.PNMED ---
Subjective Date of Service Aug 16, 2016 Subjective Patient is doing better. His blood pressure continues to improve and his renal function remained stable with a serum creatinine today of 3.37. He is scheduled to be transferred to an extended care facility. Otherwise no new complaints and denies any chest pain shortness of breath nausea vomiting or diarrhea. Exam Vital Signs Vital Sign - Last Date Time Temp Pulse Resp B/P Pulse Ox O2 Delivery O2 Flow Rate FiO2 08/16/16 12:13 65 18 151/80 96 Room Air 08/16/16 09:19 36.6 Intake and Output 08/15/16 08/15/16 08/16/16 Cumulative From/Thru 15:00 23:00 07:00 08/06/16 13:22 - 08/16/16 00:30 Intake Total 586 ml 40516 ml Output Total 1000 ml 68981 ml Balance -414 ml -2387 ml Intake Oral 586 ml 9822 ml IV Total 3511 ml Output Urine Total 1000 ml 13602 ml # Voids 2 # Bowel Movements 2 Exam Neck is supple without adenopathy thyromegaly or jugular venous distention. Auscultation. Heart is regular with a soft systolic murmur. Soft right tenderness rebound guarding masses or hepatosplenomegaly. Lab and Diagnostics Result Diagram: 08/15/16 0710 08/16/16 0635 X-Rays, CTs and MRIs Date of Service: 08/06/16 1527 PROCEDURE: CT BRAIN WITHOUT CONTRAST ([id number]) INDICATIONS: dizziness, vomiting IMPRESSION: No acute intracranial abnormality. Dictated by: Cassidy Anderson M.D. on 08/06/2016 at 16:26 Date of Service: 08/07/16 1256 PROCEDURE: MRI BRAIN WITHOUT CONTRAST ([id number]) INDICATIONS: Stroke IMPRESSION: The medial aspect of the left cerebellar peduncle shows a small 8 x 9 mm area of acute or subacute ischemic injury without mass effect or hemorrhage. This presumably is a manifestation of microvascular atherosclerotic change. Dictated by: Tobin Rosenberg M.D. on 08/07/2016 at 15:44 Additional Diagnostics Date of Service: 08/08/16 0500 PROCEDURE: US RENAL WITH ARTERIES DUPLEX DOPPLER SONOGRAM, LIMITED INDICATIONS: uncontrolled HTN, NAKIA IMPRESSION: 1. Tardus parvus waveforms are visualized within the bilateral renal arteries most notably within the hilar regions and the medullary regions consistent with bilateral renal artery stenosis. Dictated by: Eliane Farnsworth M.D. on 08/08/2016 at 12:05 Assessment & Plan Impression #1 hypertension with hypertensive heart disease and hypertensive nephrosclerosis #2 acute kidney injury of multifactorial etiologies #3 baseline chronic kidney disease stage Recommendations #1 from my point of view he is cleared for discharge and I would like to see him back in my office in approximately 3-4 weeks. Operative discharge and would like to see his spironolactone increased to 50 mg twice a day. GI Prophylaxis: H2 olga VTE Mechanical Devices: Intermittant Pneumatic CD Resuscitation Status: DNR/DNI:Do Not Resuscitate/Intubate Vijay Woodson DO Aug 16, 2016 14:15
--- NOTE | 2016-08-16 16:16 | NUR ---
Spoke with Yung Kendall director at [facility] and he has submitted insurance authorization and it is being processed. There was no approval tonute, Yung has seen this company approve on Saturdays. Gave him cell number for [facility] [place] and let him know that would be his point of contact for the weekend. There is a chance for Friday discharge but it depends on authorization. If authorization does not come tomorrow most likely scenario will be Friday. Spoke with patient and son at bedside and let them know what the outcome for today was and that the TELEPHONE ORDER DISPATCHER artificial breeding ranch supervisor would follow up with them today. Updated TELEPHONE ORDER DISPATCHER on plan for tomorrow and son will be wanting update first thing on 08/17/16
--- NOTE | 2016-08-16 17:10 | NUR ---
Social Work Note-Authorization not obtained D/A: [facility] is still working on an authorization for [facility]. There is the possibility of an auth tomorrow, however if they are unable to get auth on Friday patient will need to remain until Friday. Pt and pts son expressed frustration at the process, DEVELOPMENT REPRESENTATIVE explained that the authorization process is challenging at times. Son indicates that he and his family will formulate a plan for d/c from inpatient rehab. Lisbeth (Liaison) from [facility] stated she had no concerns about the d/c plan. Further Lisbeth was asked if the patient could be transported via pov by son to avoid costs, this has not been confirmed as of this writing. Pt and family also aware that if authorization is not obtained until Friday, pt may require a recent PT eval with potential that the patient may have progressed and at that point we would need to discuss a SNF vs. HH. PLAN: Pt medically ready for d/c, awaiting authorization for Inpatient Rehab. DEVELOPMENT REPRESENTATIVE to f/u with son tomorrow no later than noon about progress with auth or whether patient will remain until Friday. (#on whiteboard). Will need to clarify with [facility] whether they will approve of transport via pov. Son is aware of private pay costs should pt require a w/c van for transport per [facility] policy. plywood layup line back feeder notified. JOELLEN Godfrey
--- NOTE | 2016-08-16 17:59 | NUR ---
Activity and Discharge: Patient did not discharge today. Patient has been up to the bathroom today and passing gas but no bowel movement yet . He has received Miralax daily and is eating his meals . Patient stated that he feels that he will have BM tonight and is passing allot of gas. Patient has no IV or Telemetry (Per MD this is OK).
--- NOTE | 2016-08-16 18:37 | PCM.PNMED ---
Subjective Date of Service Aug 16, 2016 Subjective Patient medically stable. Blood pressure controlled with SBP 150-160's Nephrology has signed off, however, will f/u outpatient Patient has been eating well. Last BM 4 days ago, but is passing lots of gas. Patient can stand up, but states unsteadiness on feet. Patient was planned for discharge to [facility]. Preauthorization still pending however. Anticipate discharge tomorrow or even friday. Exam Vital Signs Vital Sign - Last Date Time Temp Pulse Resp B/P Pulse Ox O2 Delivery O2 Flow Rate FiO2 08/16/16 12:13 65 18 151/80 96 Room Air 08/16/16 09:19 36.6 Intake and Output 08/15/16 08/15/16 08/16/16 Cumulative From/Thru 15:00 23:00 07:00 08/06/16 13:22 - 08/16/16 00:30 Intake Total 586 ml 35816 ml Output Total 1000 ml 74003 ml Balance -414 ml -2387 ml Intake Oral 586 ml 9822 ml IV Total 3511 ml Output Urine Total 1000 ml 12986 ml # Voids 2 # Bowel Movements 2 Exam Gen: in bed comfortable HEENT: PERRLA, No sclera icterus. Neck supple, pink mucous membranes Cardio: Regular rate and rhythm, no murmurs appreciated. . Lungs: b/l air movement, no crackles, wheezes, or coarse breathing Abd: Soft, obese, non-tender, normal bowel tones Ext: No edema, no clubbing. Skin: Warm, dry and intact Psych: AOx3, moving on all 4 limbs. IVs and Medications Medications Reviewed: Medications were reviewed in detail Lab and Diagnostics Result Diagram: 08/15/16 0710 08/16/16 0635 X-Rays, CTs and MRIs Date of Service: 08/06/16 1527 PROCEDURE: CT BRAIN WITHOUT CONTRAST ([id number]) INDICATIONS: dizziness, vomiting IMPRESSION: No acute intracranial abnormality. Dictated by: Cassidy Anderson M.D. on 08/06/2016 at 16:26 Date of Service: 08/07/16 1256 PROCEDURE: MRI BRAIN WITHOUT CONTRAST ([id number]) INDICATIONS: Stroke IMPRESSION: The medial aspect of the left cerebellar peduncle shows a small 8 x 9 mm area of acute or subacute ischemic injury without mass effect or hemorrhage. This presumably is a manifestation of microvascular atherosclerotic change. Dictated by: Tobin Rosenberg M.D. on 08/07/2016 at 15:44 Additional Diagnostics Date of Service: 08/08/16 0500 PROCEDURE: US RENAL WITH ARTERIES DUPLEX DOPPLER SONOGRAM, LIMITED INDICATIONS: uncontrolled HTN, NAKIA IMPRESSION: 1. Tardus parvus waveforms are visualized within the bilateral renal arteries most notably within the hilar regions and the medullary regions consistent with bilateral renal artery stenosis. Dictated by: Eliane Farnsworth M.D. on 08/08/2016 at 12:05 Assessment & Plan Patient is a 60-year-old male with history of CVA in 2014 and TIA in 05/2016, diet controlled type II diabetes, hypertension, stage 4 CKD second to DM and smoking who presented to the emergency department with sudden onset of nausea with vomiting, lightheadedness, and disequilibrium. Day#9. 1. Questionable TIA vs dysequilibrium, present on admission, improving - Pt presents with complaint of left sided weakness that has mostly resolved after 24 hours - Pt has known carotid stenosis from US done 05/29/16 - Brain CT shows no hemorrhage, MRI negative for any acute findings - Will D/c patient on Plavix 75 mg daily 2. Hypertension, poa. Improving. 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 Stent not indicated - Will d/c patient on chlorthalidone 25mg daily, labetalol 100mg BID, Nifedipine ER 60mg daily, spironolactone 50mg BID 3. Acute Kidney Injury on CKD, poa. Improving. - Baseline creatinine is approximately 2.5 - Today creatinine down to 3.31 (3.37) - This is likely sequela of severe hypertension 4. Renal Artery Stenosis, Bilateral, poa. Active. - As evidenced by US findings during this admission - This is likely the cause of pts significant BP elevation - No stenting required for this after interventional procedure by Dr. Vernon - Nephrology following 5. Benign Positional Vertigo, poa. Resolved. - Continue Meclizine PRN 6. Hx of Recent CVA - Continue Aspirin - Continue Plavix - Pt has known carotid stenosis but has not yet had any intervention for this 7. Hypothyroidism - Continue Levothyroxine 8. Diabetes Mellitus, Type II - Well controlled - Continue checking FSBS q AC and HS - Continue low-dose SSI 9. Tobacco Use Disorder - Nicotine Patch - Pt counseled to quit smoking Disposition: Medically stable, anticipate discharge in the AM or friday pending insurance preapproval GI Prophylaxis: H2 olga VTE Mechanical Devices: Intermittant Pneumatic CD Resuscitation Status: DNR/DNI:Do Not Resuscitate/Intubate Time spent 35 minutes Attending Statement I have seen and evaluated patient at bedside in addition to directly supervising care provided by resident physician. I agree with above documentation. Earle Aldana DO Aug 16, 2016 18:37 Chaz Fulton DO Aug 17, 2016 12:04
[2016-08-16] MEDS: Insulin GLARgine 100 Unit/mL Syringe SUBQ SCH (20:18)
[2016-08-17] MEDS: Sodium Chloride LOK Flush 10 mL Syringe IVFLUSH SCH ×4 (00:30→16:30)
[2016-08-17 01:33] VITALS: BP 162/78; PULSE 64; RESP 18; O2SAT 93
[2016-08-17 06:13] VITALS: BP 143/67; PULSE 1; RESP 18; O2SAT 96
[2016-08-17] MEDS: Insulin LISPRO 300 Unit/3 mL Inj SUBQ SCH ×4 (08:00→20:43)
[2016-08-17] MEDS: Polyethylene Glycol (PEG) 17 Gm Powder PO SCH (08:30)
[2016-08-17] MEDS: NIFEdipine 30 mg ER24 Tablet PO SCH (08:31)
--- NOTE | 2016-08-17 11:32 | PCM.PNMED ---
Subjective Date of Service Aug 17, 2016 Subjective Patient's blood pressure is getting better however he did have a slight bump in his creatinine which is most likely secondary to normalization of his blood pressure and should be reversible. He is pending discharge once arrangements can be made. Exam Vital Signs Vital Sign - Last Date Time Temp Pulse Resp B/P Pulse Ox O2 Delivery O2 Flow Rate FiO2 08/17/16 06:13 36.2 1 18 143/67 96 Room Air Intake and Output 08/16/16 08/16/16 08/17/16 Cumulative From/Thru 15:00 23:00 07:00 08/06/16 13:22 - 08/16/16 19:54 Intake Total 200 ml 1519 ml 30970 ml Output Total 1350 ml 41484 ml Balance -1150 ml 1519 ml -2018 ml Intake Oral 200 ml 1519 ml 07240 ml IV Total 3511 ml Output Urine Total 1350 ml 58694 ml # Voids 3 5 # Bowel Movements 0 2 Exam Lungs are clear to auscultation. Heart is regular rhythmical with a soft systolic murmur. Abdomen is soft without any tenderness rebound guarding masses or hepatosplenomegaly. She cannot express any clubbing cyanosis or edema. Lab and Diagnostics Result Diagram: 08/15/16 0710 08/17/16 0737 X-Rays, CTs and MRIs Date of Service: 08/06/16 1527 PROCEDURE: CT BRAIN WITHOUT CONTRAST ([id number]) INDICATIONS: dizziness, vomiting IMPRESSION: No acute intracranial abnormality. Dictated by: Cassidy Anderson M.D. on 08/06/2016 at 16:26 Date of Service: 08/07/16 1256 PROCEDURE: MRI BRAIN WITHOUT CONTRAST ([id number]) INDICATIONS: Stroke IMPRESSION: The medial aspect of the left cerebellar peduncle shows a small 8 x 9 mm area of acute or subacute ischemic injury without mass effect or hemorrhage. This presumably is a manifestation of microvascular atherosclerotic change. Dictated by: Tobin Rosenberg M.D. on 08/07/2016 at 15:44 Additional Diagnostics Date of Service: 08/08/16 0500 PROCEDURE: US RENAL WITH ARTERIES DUPLEX DOPPLER SONOGRAM, LIMITED INDICATIONS: uncontrolled HTN, NAKIA IMPRESSION: 1. Tardus parvus waveforms are visualized within the bilateral renal arteries most notably within the hilar regions and the medullary regions consistent with bilateral renal artery stenosis. Dictated by: Eliane Farnsworth M.D. on 08/08/2016 at 12:05 Assessment & Plan Impression #1 hypertension with hypertensive heart disease and hypertensive nephrosclerosis number to baseline chronic kidney disease stage IV #3 transient superimposed acute kidney injury Recommendations #1 is cleared for discharge from my point of view and the patient's follow-up office in GI Prophylaxis: H2 olga VTE Mechanical Devices: Intermittant Pneumatic CD Resuscitation Status: DNR/DNI:Do Not Resuscitate/Intubate Vijay Woodson DO Aug 17, 2016 11:32
--- NOTE | 2016-08-17 12:07 | NUR ---
Social Work: Continued d/c Planning Data: Pt is on day 11 of hospitalization. EMR reviewed. [employer] [facility] with [facility] at [phone] who states that an authorization for pt to go there has not yet come through. [employer] WORKER notified pt and pt's son of this and that discharge will likely be on Friday. [employer]ING [employer]AGE WORKER will continue to follow. Assessment: Pt who is independent at baseline. Plan: Still awaiting authorization for pt to go to inpt rehab at [facility]. Likely d/c on Friday. [employer]ING [employer]AGE WORKER will continue to follow. LALITA Pereira
--- NOTE | 2016-08-17 12:15 | PCM.PNMED ---
Subjective Date of Service Aug 17, 2016 Subjective No overnight events. Patient has no concerns or complaints at this time. Requesting to find out about disposition. Exam Vital Signs Vital Sign - Last Date Time Temp Pulse Resp B/P Pulse Ox O2 Delivery O2 Flow Rate FiO2 08/17/16 06:13 36.2 1 18 143/67 96 Room Air Intake and Output 08/16/16 08/16/16 08/17/16 Cumulative From/Thru 15:00 23:00 07:00 08/06/16 13:22 - 08/16/16 19:54 Intake Total 200 ml 1519 ml 60923 ml Output Total 1350 ml 01051 ml Balance -1150 ml 1519 ml -2018 ml Intake Oral 200 ml 1519 ml 42281 ml IV Total 3511 ml Output Urine Total 1350 ml 12403 ml # Voids 3 5 # Bowel Movements 0 2 Exam Gen: NAD, laying comfortably in bed HEENT: NCAT. No sclera icterus. Neck supple, pink mucous membranes Cardio: Regular rate and rhythm, no murmurs appreciated. . Lungs: CTAB Abd: Soft, obese, non-tender, normal bowel tones Ext: No edema, no clubbing. Skin: Warm, dry and intact Psych: Alert and oriented, normal speech IVs and Medications Medications Reviewed: Medications were reviewed in detail Lab and Diagnostics Result Diagram: 08/15/16 0710 08/17/16 0737 X-Rays, CTs and MRIs Date of Service: 08/06/16 1527 PROCEDURE: CT BRAIN WITHOUT CONTRAST ([id number]) INDICATIONS: dizziness, vomiting IMPRESSION: No acute intracranial abnormality. Dictated by: Cassidy Anderson M.D. on 08/06/2016 at 16:26 Date of Service: 08/07/16 1256 PROCEDURE: MRI BRAIN WITHOUT CONTRAST ([id number]) INDICATIONS: Stroke IMPRESSION: The medial aspect of the left cerebellar peduncle shows a small 8 x 9 mm area of acute or subacute ischemic injury without mass effect or hemorrhage. This presumably is a manifestation of microvascular atherosclerotic change. Dictated by: Tobin Rosenberg M.D. on 08/07/2016 at 15:44 Additional Diagnostics Date of Service: 08/08/16 0500 PROCEDURE: US RENAL WITH ARTERIES DUPLEX DOPPLER SONOGRAM, LIMITED INDICATIONS: uncontrolled HTN, NAKIA IMPRESSION: 1. Tardus parvus waveforms are visualized within the bilateral renal arteries most notably within the hilar regions and the medullary regions consistent with bilateral renal artery stenosis. Dictated by: Eliane Farnsworth M.D. on 08/08/2016 at 12:05 Assessment & Plan Patient is a 60-year-old male with history of CVA in 2014 and TIA in 05/2016, diet controlled type II diabetes, hypertension, stage 4 CKD second to DM and smoking who presented to the emergency department with sudden onset of nausea with vomiting, lightheadedness, and disequilibrium. 1. Questionable TIA vs dysequilibrium, present on admission, improving - Pt presents with complaint of left sided weakness that has mostly resolved after 24 hours - Pt has known carotid stenosis from US done 05/29/16 - Brain CT shows no hemorrhage, MRI negative for any acute findings - Will D/c patient on Plavix 75 mg daily 2. Hypertension, poa. Improving. 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 Stent not indicated - Will d/c patient on chlorthalidone 25mg daily, labetalol 100mg BID, Nifedipine ER 60mg daily, spironolactone 50mg BID 3. Acute Kidney Injury on CKD, poa. Stable. - Baseline creatinine is approximately 2.5 - Today creatinine 3.65, with stabilization of his BP - This is likely sequela of severe hypertension 4. Renal Artery Stenosis, Bilateral, poa. Active. - As evidenced by US findings during this admission - This is likely the cause of pts significant BP elevation - No stenting required for this after interventional procedure by Dr. Vernon - Nephrology following 5. Benign Positional Vertigo, poa. Resolved. - Continue Meclizine PRN 6. Hx of Recent CVA - Continue Aspirin - Continue Plavix - Pt has known carotid stenosis but has not yet had any intervention for this 7. Hypothyroidism - Continue Levothyroxine 8. Diabetes Mellitus, Type II - Well controlled - Continue checking FSBS q AC and HS - Continue low-dose SSI 9. Tobacco Use Disorder - Nicotine Patch - Pt counseled to quit smoking Disposition: Medically stable, anticipate discharge in the AM likely to be Friday pending insurance preapproval GI Prophylaxis: H2 olga VTE Mechanical Devices: Intermittant Pneumatic CD Resuscitation Status: DNR/DNI:Do Not Resuscitate/Intubate Time spent 25 minutes Attending Statement I have seen and evaluated patient at bedside and directly supervised care provided by resident physician. I agree with above documentation. Leisa Ashford DO Aug 17, 2016 12:15 Chaz Fulton DO Aug 17, 2016 15:14
[2016-08-17 14:43] VITALS: BP 155/71; PULSE 62; RESP 18; O2SAT 96
[2016-08-17] MEDS: Insulin GLARgine 100 Unit/mL Syringe SUBQ SCH (20:28)
[2016-08-17 20:34] VITALS: BP 131/76; PULSE 63; RESP 18; O2SAT 95
[2016-08-18] MEDS: Sodium Chloride LOK Flush 10 mL Syringe IVFLUSH SCH ×3 (00:07→16:55)
--- NOTE | 2016-08-18 05:19 | NUR ---
Uneventful Night: Pt rested through the night with no complaints of pain or discomfort. Denies SOB n/v. Call light within reach, using appropriately. Pleasant and cooperative with care.
[2016-08-18 05:45] VITALS: BP 167/77; PULSE 63; RESP 18; O2SAT 99
[2016-08-18] MEDS: Insulin LISPRO 300 Unit/3 mL Inj SUBQ SCH ×4 (07:47→21:31)
[2016-08-18] MEDS: NIFEdipine 30 mg ER24 Tablet PO SCH (08:00)
[2016-08-18] MEDS: Polyethylene Glycol (PEG) 17 Gm Powder PO SCH (08:02)
[2016-08-18] MEDS ORDERED: 0.9% Sodium Chloride 1,000 ML IV SCH (11:00)
--- NOTE | 2016-08-18 11:15 | PCM.PNMED ---
Subjective Date of Service Aug 18, 2016 Subjective Pt feeling a little tired this morning, but no acute complaints. Still much weaker than baseline. Awaiting SNF placement. No acute complaints. Exam Vital Signs Vital Sign - Last Date Time Temp Pulse Resp B/P Pulse Ox O2 Delivery O2 Flow Rate FiO2 08/18/16 05:45 36.6 63 18 167/77 99 Room Air Intake and Output 08/17/16 08/17/16 08/18/16 Cumulative From/Thru 15:00 23:00 07:00 08/06/16 13:22 - 08/18/16 01:28 Intake Total 0 ml 600 ml 69249 ml Output Total 925 ml 350 ml 24433 ml Balance -925 ml 250 ml -2693 ml Intake Oral 0 ml 600 ml 37428 ml IV Total 3511 ml Output Urine Total 925 ml 350 ml 79402 ml # Voids 5 # Bowel Movements 2 Exam Gen: NAD, laying comfortably in bed HEENT: NCAT. No sclera icterus. Neck supple, pink mucous membranes Cardio: Regular rate and rhythm, no murmurs appreciated. . Lungs: CTAB Abd: Soft, obese, non-tender, normal bowel tones Ext: No edema, no clubbing. Skin: Warm, dry and intact Psych: Alert and oriented, normal speech IVs and Medications Medications Reviewed: Medications were reviewed in detail Lab and Diagnostics Result Diagram: 08/15/16 0710 08/18/16 0635 X-Rays, CTs and MRIs Date of Service: 08/06/16 1527 PROCEDURE: CT BRAIN WITHOUT CONTRAST ([id number]) INDICATIONS: dizziness, vomiting IMPRESSION: No acute intracranial abnormality. Dictated by: Cassidy Anderson M.D. on 08/06/2016 at 16:26 Date of Service: 08/07/16 1256 PROCEDURE: MRI BRAIN WITHOUT CONTRAST ([id number]) INDICATIONS: Stroke IMPRESSION: The medial aspect of the left cerebellar peduncle shows a small 8 x 9 mm area of acute or subacute ischemic injury without mass effect or hemorrhage. This presumably is a manifestation of microvascular atherosclerotic change. Dictated by: Tobin Rosenberg M.D. on 08/07/2016 at 15:44 Additional Diagnostics Date of Service: 08/08/16 0500 PROCEDURE: US RENAL WITH ARTERIES DUPLEX DOPPLER SONOGRAM, LIMITED INDICATIONS: uncontrolled HTN, NAKIA IMPRESSION: 1. Tardus parvus waveforms are visualized within the bilateral renal arteries most notably within the hilar regions and the medullary regions consistent with bilateral renal artery stenosis. Dictated by: Eliane Farnsworth M.D. on 08/08/2016 at 12:05 Assessment & Plan Patient is a 60-year-old male with history of CVA in 2014 and TIA in 05/2016, diet controlled type II diabetes, hypertension, stage 4 CKD second to DM and smoking who presented to the emergency department with sudden onset of nausea with vomiting, lightheadedness, and disequilibrium. 1. Questionable TIA vs dysequilibrium, present on admission, improving - Pt presents with complaint of left sided weakness that has mostly resolved after 24 hours - Pt has known carotid stenosis from US done 05/29/16 - Brain CT shows no hemorrhage, MRI negative for any acute findings - Will D/c patient on Plavix 75 mg daily 2. Hypertension, poa. Improving. 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 Stent not indicated - Will d/c patient on chlorthalidone 25mg daily, labetalol 100mg BID, Nifedipine ER 60mg daily, spironolactone 50mg BID as recommended by [employer]. 3. Acute Kidney Injury on CKD, poa. Stable. - Baseline creatinine is approximately 2.5 - Cr has stabilized in mid 3's, continue to monitor awaiting SNF placement. - This is likely sequela of severe hypertension, assumed to be new baseline. 4. Renal Artery Stenosis, Bilateral, poa. Active. - As evidenced by US findings during this admission - This is likely the cause of pts significant BP elevation - No stenting required for this after interventional procedure by Dr. Vernon - Nephrology continues to follow 5. Benign Positional Vertigo, poa. Resolved. - Continue Meclizine PRN 6. Hx of Recent CVA - Continue Aspirin - Continue Plavix - Pt has known carotid stenosis but has not yet had any intervention for this 7. Hypothyroidism - Continue Levothyroxine - Though TSH is markedly elevated Free T4 wnl. Possibly reactive , consider rechecking if fatigue continues. 8. Diabetes Mellitus, Type II - Well controlled - Continue checking FSBS q AC and HS - Continue low-dose [id number] 9. Tobacco Use Disorder - Nicotine Patch - Pt counseled to quit smoking Pain Evaluation: Adequate Pain Control GI Prophylaxis: H2 olga VTE Mechanical Devices: Intermittant Pneumatic CD Resuscitation Status: DNR/DNI:Do Not Resuscitate/Intubate Time spent 25 minutes Chaz Fulton DO Aug 18, 2016 11:15
[2016-08-18 11:26] LABS: BASOPHILS % (AUTO) 1.1 % (0-3); EOSINOPHILS % (AUTO) 4.2 % (0-5); MONOCYTES % (AUTO) 9.8 % (4-12); Mean Corpuscular Hemoglobin 27.3 pg (27.0-35.0); Mean Corpuscular Volume 85.1 fL (81-100); NEUTROPHILS % (AUTO) 62.6 % (40-74); Platelet Count 297 bil/L (150-400)
[2016-08-18 13:49] VITALS: BP 146/75; PULSE 59; RESP 18; O2SAT 95
--- NOTE | 2016-08-18 18:32 | PCM.PNMED ---
Subjective Date of Service Aug 18, 2016 Subjective No overnight event. SBP remains high in the 150-160's, but stable. Patient without new complaints. Creatinine, slightly elevated. He is currently waiting for placement. Exam Vital Signs Vital Sign - Last Date Time Temp Pulse Resp B/P Pulse Ox O2 Delivery O2 Flow Rate FiO2 08/18/16 13:49 36.3 59 18 146/75 95 Room Air Intake and Output 08/17/16 08/17/16 08/18/16 Cumulative From/Thru 15:00 23:00 07:00 08/06/16 13:22 - 08/18/16 01:28 Intake Total 0 ml 600 ml 70086 ml Output Total 925 ml 350 ml 85800 ml Balance -925 ml 250 ml -2693 ml Intake Oral 0 ml 600 ml 86913 ml IV Total 3511 ml Output Urine Total 925 ml 350 ml 80990 ml # Voids 5 # Bowel Movements 2 Exam Gen: NAD, laying comfortably in bed HEENT: NCAT. No sclera icterus. Neck supple, pink mucous membranes Cardio: Regular rate and rhythm, no murmurs appreciated. . Lungs: CTAB Abd: Soft, obese, non-tender, normal bowel tones Ext: No edema, no clubbing. Skin: Warm, dry and intact Psych: Alert and oriented, normal speech IVs and Medications Medications Reviewed: Medications were reviewed in detail Lab and Diagnostics Result Diagram: 08/18/16 0635 08/18/16 0635 X-Rays, CTs and MRIs Date of Service: 08/06/16 1527 PROCEDURE: CT BRAIN WITHOUT CONTRAST ([id number]) INDICATIONS: dizziness, vomiting IMPRESSION: No acute intracranial abnormality. Dictated by: Cassidy Anderson M.D. on 08/06/2016 at 16:26 Date of Service: 08/07/16 1256 PROCEDURE: MRI BRAIN WITHOUT CONTRAST ([id number]) INDICATIONS: Stroke IMPRESSION: The medial aspect of the left cerebellar peduncle shows a small 8 x 9 mm area of acute or subacute ischemic injury without mass effect or hemorrhage. This presumably is a manifestation of microvascular atherosclerotic change. Dictated by: Tobin Rosenberg M.D. on 08/07/2016 at 15:44 Additional Diagnostics Date of Service: 08/08/16 0500 PROCEDURE: US RENAL WITH ARTERIES DUPLEX DOPPLER SONOGRAM, LIMITED INDICATIONS: uncontrolled HTN, NAKIA IMPRESSION: 1. Tardus parvus waveforms are visualized within the bilateral renal arteries most notably within the hilar regions and the medullary regions consistent with bilateral renal artery stenosis. Dictated by: Eliane Farnsworth M.D. on 08/08/2016 at 12:05 Assessment & Plan Patient is a 60-year-old male with history of CVA in 2014 and TIA in 05/2016, diet controlled type II diabetes, hypertension, stage 4 CKD second to DM and smoking who presented to the emergency department with sudden onset of nausea with vomiting, lightheadedness, and disequilibrium. 1. Questionable TIA vs dysequilibrium, present on admission, improving - Pt presents with complaint of left sided weakness that has mostly resolved after 24 hours - Pt has known carotid stenosis from US done 05/29/16 - Brain CT shows no hemorrhage, MRI negative for any acute findings - Will D/c patient on Plavix 75 mg daily 2. Hypertension, poa. Improving. 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 Stent not indicated - Will d/c patient on chlorthalidone 25mg daily, labetalol 100mg BID, Nifedipine ER 60mg daily, spironolactone 50mg BID as recommended by [employer] Builder. 3. Acute Kidney Injury on CKD, poa. Stable. - Baseline creatinine is approximately 2.5 - Cr has stabilized in mid 3's, continue to monitor awaiting SNF placement. - This is likely sequela of severe hypertension, assumed to be new baseline. - Consider reconsult nephrology service should Cr continue to climb tomorrow. 4. Renal Artery Stenosis, Bilateral, poa. Active. - As evidenced by US findings during this admission - This is likely the cause of pts significant BP elevation - No stenting required for this after interventional procedure by Dr. Vernon - Nephrology continues to follow 5. Benign Positional Vertigo, poa. Resolved. - Continue Meclizine PRN 6. Hx of Recent CVA - Continue Aspirin - Continue Plavix - Pt has known carotid stenosis but has not yet had any intervention for this 7. Hypothyroidism - TSH 129, T4 0.86. - Continue Levothyroxine, consider up levothyroxine outpatient. 8. Diabetes Mellitus, Type II - Well controlled - Continue checking FSBS q AC and HS - Continue low-dose [id number] 9. Tobacco Use Disorder - Nicotine Patch - Pt counseled to quit smoking Disposition: will likely be discharge tomorrow to SNF. GI Prophylaxis: H2 olga VTE Mechanical Devices: Intermittant Pneumatic CD Resuscitation Status: DNR/DNI:Do Not Resuscitate/Intubate Time spent 30 minutes Attending Statement I have seen and evaluated patient at bedside and directly supervised care provided by resident physician. I agree with above documentation. Earle Aldana DO Aug 18, 2016 18:32 Chaz Fulton DO Aug 19, 2016 07:09
[2016-08-18 20:11] VITALS: BP 154/75; PULSE 64; RESP 16; O2SAT 94
[2016-08-18] MEDS: Insulin GLARgine 100 Unit/mL Syringe SUBQ SCH (20:51)
[2016-08-19] MEDS: Sodium Chloride LOK Flush 10 mL Syringe IVFLUSH SCH ×3 (00:54→17:38)
--- NOTE | 2016-08-19 05:59 | NUR ---
Uneventful Pt has been cooperative with care. AOX4. Health teaching about insulin regarding types and indication provided. Pt verbalizes understanding and repeat the health teaching. Denies chest pain, sob, n/v and abd discomfort.
[2016-08-19 06:38] VITALS: BP 168/93; PULSE 61; RESP 16; O2SAT 96
[2016-08-19] MEDS: Insulin LISPRO 300 Unit/3 mL Inj SUBQ SCH ×4 (08:00→22:00)
[2016-08-19] MEDS: Polyethylene Glycol (PEG) 17 Gm Powder PO SCH (08:30)
--- NOTE | 2016-08-19 09:15 | NUR ---
Called [facility] and spoke with Rajni clinical liaison, she has called [facility] CM and left message regarding authorization. She also requested updated clinicals for patient in case [facility] needs them. Updated [employer]MI[employer] Addendum: 08/19/16 at 1127 by DRAKE PA CM Spoke with Rajni Clinical Liaison at [facility] rehab and they got denial from [facility]. Patient is too high functioning per insurance and they would recommend outpatient or if there is safety concerns may authorize SNF. Leida is the CM at [facility] [phone], left her a voicemail regarding patient and potential for SNF authorization. Updated ASS[employer]IATE [employer]MIST
[2016-08-19] MEDS: Ergocalciferol (Vit D2) 50,000 Unit Capsule PO SCH (10:34)
[2016-08-19] MEDS: NIFEdipine 30 mg ER24 Tablet PO SCH ×2 (10:35→20:49)
--- NOTE | 2016-08-19 12:20 | PCM.PNMED ---
Subjective Date of Service Aug 19, 2016 Subjective no new complaints no headache,fever, chills. remains having unsteady gait. Exam Vital Signs Vital Sign - Last Date Time Temp Pulse Resp B/P Pulse Ox O2 Delivery O2 Flow Rate FiO2 08/19/16 06:38 36.8 61 16 168/93 96 Room Air Intake and Output 08/18/16 08/18/16 08/19/16 Cumulative From/Thru 15:00 23:00 07:00 08/06/16 13:22 - 08/19/16 06:42 Intake Total 500 ml 900 ml 400 ml 69950 ml Output Total 900 ml 850 ml 800 ml 10453 ml Balance -400 ml 50 ml -400 ml -3443 ml Intake Oral 500 ml 900 ml 400 ml 76393 ml IV Total 3511 ml Output Urine Total 900 ml 850 ml 800 ml 65879 ml # Voids 5 # Bowel Movements 2 Exam Awake, alert, oriented x3. No acute distress. HEENT: No pallor, no jaundice, no JVD. No lymphadenopathy. No thyroid enlargement. Heart: Regular rhythm. Normal S1, S2. No murmurs, rubs, or gallops. Lungs: Clear to auscultation bilaterally. No wheezing. No rhonchi. Abdomen is soft, active bowel sounds. Extremity: No edema, cyanosis or clubbing of fingers. Weak pedal pulses. Lab and Diagnostics Result Diagram: 08/18/16 0635 08/19/16 0547 X-Rays, CTs and MRIs Date of Service: 08/06/16 1527 PROCEDURE: CT BRAIN WITHOUT CONTRAST ([id number]) INDICATIONS: dizziness, vomiting IMPRESSION: No acute intracranial abnormality. Dictated by: Cassidy Anderson M.D. on 08/06/2016 at 16:26 Date of Service: 08/07/16 1256 PROCEDURE: MRI BRAIN WITHOUT CONTRAST ([id number]) INDICATIONS: Stroke IMPRESSION: The medial aspect of the left cerebellar peduncle shows a small 8 x 9 mm area of acute or subacute ischemic injury without mass effect or hemorrhage. This presumably is a manifestation of microvascular atherosclerotic change. Dictated by: Tobin Rosenberg M.D. on 08/07/2016 at 15:44 Additional Diagnostics Date of Service: 08/08/16 0500 PROCEDURE: US RENAL WITH ARTERIES DUPLEX DOPPLER SONOGRAM, LIMITED INDICATIONS: uncontrolled HTN, NAKIA IMPRESSION: 1. Tardus parvus waveforms are visualized within the bilateral renal arteries most notably within the hilar regions and the medullary regions consistent with bilateral renal artery stenosis. Dictated by: Eliane Farnsworth M.D. on 08/08/2016 at 12:05 Assessment & Plan 1. Acute kidney injury on chronic kidney disease, stage 4. - relatively stable. - now with new baseline 3.3-3.8 2. CKD rather multifactorial including hypertensive nephrosclerosis, type 2 diabetes with nephropathy and renovascular disease (diffuse). 3. Poorly controlled BP due to CKD, right renal artery angiogram showed stenosis only 30% without gradient. 4. Dizziness, suspected transient ischemic attack. 5. Hypertension with hypertensive nephrosclerosis. 6. Type 2 diabetes. 7. History of proteinuria. PLANS: continue current BP meds. f/u with renal in 1 month. GI Prophylaxis: H2 olga VTE Mechanical Devices: Intermittant Pneumatic CD Resuscitation Status: DNR/DNI:Do Not Resuscitate/Intubate Kareen Phan MD Aug 19, 2016 12:20
[2016-08-19 14:04] VITALS: BP 136/70; PULSE 63; RESP 18; O2SAT 95
--- NOTE | 2016-08-19 14:23 | PCM.PNMED ---
Subjective Date of Service Aug 19, 2016 Subjective Bill has no new complaints today and is anxious for placement. Exam Vital Signs Vital Sign - Last Date Time Temp Pulse Resp B/P Pulse Ox O2 Delivery O2 Flow Rate FiO2 08/19/16 06:38 36.8 61 16 168/93 96 Room Air Intake and Output 08/18/16 08/18/16 08/19/16 Cumulative From/Thru 15:00 23:00 07:00 08/06/16 13:22 - 08/19/16 06:42 Intake Total 500 ml 900 ml 400 ml 81078 ml Output Total 900 ml 850 ml 800 ml 81302 ml Balance -400 ml 50 ml -400 ml -3443 ml Intake Oral 500 ml 900 ml 400 ml 05770 ml IV Total 3511 ml Output Urine Total 900 ml 850 ml 800 ml 81458 ml # Voids 5 # Bowel Movements 2 Exam Gen: NAD, laying comfortably in bed HEENT: NCAT. No sclera icterus. Neck supple, pink mucous membranes Cardio: Regular rate and rhythm, no murmurs appreciated. . Lungs: CTAB Abd: Soft, obese, non-tender, normal bowel tones Ext: No edema, no clubbing. Skin: Warm, dry and intact Psych: Alert and oriented, normal speech IVs and Medications Medications Reviewed: Medications were reviewed in detail Lab and Diagnostics Result Diagram: 08/18/16 0635 08/19/16 0547 X-Rays, CTs and MRIs Date of Service: 08/06/16 1527 PROCEDURE: CT BRAIN WITHOUT CONTRAST ([id number]) INDICATIONS: dizziness, vomiting IMPRESSION: No acute intracranial abnormality. Dictated by: Cassidy Anderson M.D. on 08/06/2016 at 16:26 Date of Service: 08/07/16 1256 PROCEDURE: MRI BRAIN WITHOUT CONTRAST ([id number]) INDICATIONS: Stroke IMPRESSION: The medial aspect of the left cerebellar peduncle shows a small 8 x 9 mm area of acute or subacute ischemic injury without mass effect or hemorrhage. This presumably is a manifestation of microvascular atherosclerotic change. Dictated by: Tobin Rosenberg M.D. on 08/07/2016 at 15:44 Additional Diagnostics Date of Service: 08/08/16 0500 PROCEDURE: US RENAL WITH ARTERIES DUPLEX DOPPLER SONOGRAM, LIMITED INDICATIONS: uncontrolled HTN, NAKIA IMPRESSION: 1. Tardus parvus waveforms are visualized within the bilateral renal arteries most notably within the hilar regions and the medullary regions consistent with bilateral renal artery stenosis. Dictated by: Eliane Farnsworth M.D. on 08/08/2016 at 12:05 Assessment & Plan Patient is a 60-year-old male with history of CVA in 2014 and TIA in 05/2016, diet controlled type II diabetes, hypertension, stage 4 CKD second to DM and smoking who presented to the emergency department with sudden onset of nausea with vomiting, lightheadedness, and disequilibrium. 1. Questionable TIA vs dysequilibrium, present on admission, improving - Pt presents with complaint of left sided weakness that has mostly resolved after 24 hours - Pt has known carotid stenosis from US done 05/29/16 - Brain CT shows no hemorrhage, MRI negative for any acute findings - Will D/c patient on Plavix 75 mg daily 2. Hypertension, poa. Improving. 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 Stent not indicated - Will d/c patient on chlorthalidone 25mg daily, labetalol 100mg BID, Nifedipine ER 60mg daily, spironolactone 50mg BID as recommended by Silo Worker. 3. Acute Kidney Injury on CKD, poa. Stable. - Baseline creatinine is approximately 2.5 - Cr has stabilized in mid 3's, continue to monitor awaiting SNF placement. - This is likely sequela of severe hypertension, assumed to be new baseline. -Patient now is likely CKD stage 4 4. Renal Artery Stenosis, Bilateral, poa. Active. - As evidenced by US findings during this admission - This is likely the cause of pts significant BP elevation - No stenting required for this after interventional procedure by Dr. Vernon - Nephrology will sign off and recommends outpatient follow up in 1 month. 5. Benign Positional Vertigo, poa. Resolved. - Continue Meclizine PRN 6. Hx of Recent CVA - Continue Aspirin - Continue Plavix - Pt has known carotid stenosis but has not yet had any intervention for this 7. Hypothyroidism - TSH 129, T4 0.86. -Currently on 200 g of levothyroxine, will recheck TSH level for verification, then increase as needed. -Consider endocrinology outpatient workup if TSH remains extremely high 8. Diabetes Mellitus, Type II - Well controlled - Continue checking FSBS q AC and HS - Continue low-dose SSI 9. Tobacco Use Disorder - Nicotine Patch he would like additional nicotine patch prescription on discharge - Pt counseled to quit smoking Disposition: will likely be discharge tomorrow to SNF pending approval. Pain Evaluation: Adequate Pain Control GI Prophylaxis: H2 olga VTE Mechanical Devices: Intermittant Pneumatic CD Resuscitation Status: DNR/DNI:Do Not Resuscitate/Intubate Attending Statement The patient was seen and examined together with Dr. Crum on 08/19/2016 and I agree with the history, exam and plan as outlined in the note above. Hugo Crum DO Aug 19, 2016 08:03 Kian Gamez MD Aug 19, 2016 14:55
--- NOTE | 2016-08-19 14:59 | NUR ---
Blood sugars-Pt teaching Patient reporting he takes his blood sugars 1 hr after meals "and have for 20 yrs". Discussion about taking blood sugars prior to meals-patient reporting "but then my blood sugar won't be accurate. Additional teaching/reinforcement given. Patient appeared overwhelmed with the change. Patient will need additional teaching/reinforcement.
--- NOTE | 2016-08-19 15:49 | NUR ---
Social Work-readiness for discharge: Data:EMR reviewed. NEREYDA updated by UR Specialist that authorization has been denied for inpt rehab. SW called all local SNf's and [facility] and [facility] are the only two that contact with pt's insurance. UR specialist to follow up with insurance to determine if they would authorize SNF. SW followed up with pt at bedside and explained that authorization has been denied, but explained that insurance may authorize SNF. Pt agreeable to referral to both [facility] and [facility]. Pt declined having SW call his son. SW faxed referral to [facility] and [facility]. Paperwork and PASRR in the chart. SW will continue to follow. Assessment:Pt who would benefit from SNF. Plan:[facility] and [facility] have been faxed. UR specialist reaching out to insurance to determine if they will auth SNF. Paperwork and PASRR in the chart. SW will continue to follow. LALITA Macias
--- NOTE | 2016-08-19 15:53 | NUR ---
[facility] can accept with Dr. Ross to follow. LALITA Macias
[2016-08-19 20:28] VITALS: BP 172/85; PULSE 64; RESP 18; O2SAT 96
[2016-08-19] MEDS: Insulin GLARgine 100 Unit/mL Syringe SUBQ SCH (21:00)
[2016-08-20] MEDS: Sodium Chloride LOK Flush 10 mL Syringe IVFLUSH SCH ×2 (00:11→08:58)
[2016-08-20 05:03] VITALS: BP 148/77; PULSE 59; RESP 18; O2SAT 96
--- NOTE | 2016-08-20 05:39 | NUR ---
Uneventful Pt denies chest pain, sob, n/v or abd discomfort. HS meds and administered as scheduled. Hourly rounding done and pt has slept most of the night.
[2016-08-20] MEDS: Insulin LISPRO 300 Unit/3 mL Inj SUBQ SCH (08:00)
--- NOTE | 2016-08-20 08:39 | NUR ---
Spoke with Rema and patient is medically ready and now there is insurance authorization in place. Paged and would like to plan for an 11AM picker packer. Updated WAREHOUSEMAN
--- NOTE | 2016-08-20 08:56 | NUR ---
Social Work-readiness for discharge: data:EMR Reviewed. Pt is on day 14 of hospitalization for acute CVA per H&P. Pt will likely be medically stable to discharge today. UR specialist spoke with Rema Khan admissions at [facility] who is agreeable to accepting pt and has authorization from pt's insurance company. SW followed up with pt and he is in agreement with plan of going to [facility]. SW called pt's son Curt and provided him with update. Son is agreeable to pt going to [facility] and would like to be updated at discharge. MD has been paged and made aware. Paperwork and PASRR in the chart. SW will continue to follow. Assessment:Pt who would benefit from SNF. Plan:[facility] has accepted pt and insurance authorization has been obtained. Pt and son in agreement with plan. Paperwork and PASRR in the chart. SW will continue to follow. LALITA Macias
[2016-08-20] MEDS: NIFEdipine 30 mg ER24 Tablet PO SCH (08:57)
[2016-08-20] MEDS: Polyethylene Glycol (PEG) 17 Gm Powder PO SCH (08:59)
--- NOTE | 2016-08-20 09:25 | PCM.PNMED ---
Subjective Date of Service Aug 20, 2016 Subjective Complains of some right neck pain that is chronic for him. Otherwise no other new complaints and slept well last night. Exam Vital Signs Vital Sign - Last Date Time Temp Pulse Resp B/P Pulse Ox O2 Delivery O2 Flow Rate FiO2 08/20/16 05:03 36.6 59 18 148/77 96 Room Air Intake and Output 08/19/16 08/19/16 08/20/16 Cumulative From/Thru 15:00 23:00 07:00 08/06/16 13:22 - 08/20/16 06:05 Intake Total 1300 ml 400 ml 86729 ml Output Total 1125 ml 750 ml 52738 ml Balance 175 ml -350 ml -3618 ml Intake Oral 1300 ml 400 ml 81757 ml IV Total 3511 ml Output Urine Total 1125 ml 750 ml 17800 ml # Voids 5 # Bowel Movements 0 0 2 General: Alert, Oriented X3, Cooperative, No Acute Distress Eyes: PERRLA Mouth: Mucous Membr Moist/[place] Neck: Tenderness (right neck soft tissue) Chest & Lungs: Clear to auscultation & percussion Cardiovascular: Regular Rate/Rhythm Abdomen: Non-tender, Non-distended, Soft Neurological: Grossly Neurologically Intact, Normal Speech IVs and Medications Medications Reviewed: Medications were reviewed in detail Lab and Diagnostics Result Diagram: 08/18/16 0635 08/19/16 0547 X-Rays, CTs and MRIs Date of Service: 08/06/16 1527 PROCEDURE: CT BRAIN WITHOUT CONTRAST ([id number]) INDICATIONS: dizziness, vomiting IMPRESSION: No acute intracranial abnormality. Dictated by: Cassdiy Anderson M.D. on 08/06/2016 at 16:26 Date of Service: 08/07/16 1256 PROCEDURE: MRI BRAIN WITHOUT CONTRAST ([id number]) INDICATIONS: Stroke IMPRESSION: The medial aspect of the left cerebellar peduncle shows a small 8 x 9 mm area of acute or subacute ischemic injury without mass effect or hemorrhage. This presumably is a manifestation of microvascular atherosclerotic change. Dictated by: Tobin Rosenberg M.D. on 08/07/2016 at 15:44 Additional Diagnostics Date of Service: 08/08/16 0500 PROCEDURE: US RENAL WITH ARTERIES DUPLEX DOPPLER SONOGRAM, LIMITED INDICATIONS: uncontrolled HTN, NAKIA IMPRESSION: 1. Tardus parvus waveforms are visualized within the bilateral renal arteries most notably within the hilar regions and the medullary regions consistent with bilateral renal artery stenosis. Dictated by: Eliane Farnsworth M.D. on 08/08/2016 at 12:05 Assessment & Plan Patient is a 60-year-old male with history of CVA in 2014 and TIA in 05/2016, diet controlled type II diabetes, hypertension, stage 4 CKD second to DM and smoking who presented to the emergency department with sudden onset of nausea with vomiting, lightheadedness, and disequilibrium. 1. Questionable TIA vs dysequilibrium, present on admission, improving - Pt presents with complaint of left sided weakness that has mostly resolved after 24 hours - Pt has known carotid stenosis from US done 05/29/16 - Brain CT shows no hemorrhage, MRI negative for any acute findings - Will D/c patient on Plavix 75 mg daily - Will D/C when placement available 2. Hypertension, poa. Improving. 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 Stent not indicated - Will d/c patient on chlorthalidone 25mg daily, labetalol 100mg BID, Nifedipine ER 60mg daily, spironolactone 50mg BID as recommended by Assistant Professor. 3. Acute Kidney Injury on CKD, poa. Stable. - Baseline creatinine is approximately 2.5 - Cr has stabilized in mid 3's, continue to monitor awaiting SNF placement. - This is likely sequela of severe hypertension, assumed to be new baseline. -Patient now is likely CKD stage 4 4. Renal Artery Stenosis, Bilateral, poa. Active. - As evidenced by US findings during this admission - This is likely the cause of pts significant BP elevation - No stenting required for this after interventional procedure by Dr. Vernon - Nephrology will sign off and recommends outpatient follow up in 1 month. 5. Benign Positional Vertigo, poa. Resolved. - Continue Meclizine PRN 6. Hx of Recent CVA - Continue Aspirin - Continue Plavix - Pt has known carotid stenosis but has not yet had any intervention for this 7. Hypothyroidism - TSH 129, T4 0.86. Recheck TSH 119. -Will increase LT4 to 224mcg daily. -Consider endocrinology outpatient workup if TSH remains extremely high 8. Diabetes Mellitus, Type II - Well controlled - Continue checking FSBS q AC and HS - Continue low-dose SSI 9. Tobacco Use Disorder - Nicotine Patch he would like additional nicotine patch prescription on discharge - Pt counseled to quit smoking Disposition: will likely be discharge today to SNF pending approval. Pain Evaluation: Adequate Pain Control GI Prophylaxis: H2 olga VTE Mechanical Devices: Intermittant Pneumatic CD Resuscitation Status: DNR/DNI:Do Not Resuscitate/Intubate Hugo Crum DO Aug 20, 2016 09:25 Kian Gamez MD Aug 21, 2016 10:08
[2016-08-20] MEDS ORDERED: LEVO300T5 PO (10:10)
--- NOTE | 2016-08-20 11:27 | NUR ---
Faxed orders to [facility] and placed copy on chart. [facility] arranged transport for 1300. Updated [employer] PATROL And RN
--- NOTE | 2016-08-20 11:35 | NUR ---
Social Work-discharge: Data:EMR Reviewed. Pt is on day 14 of hospitalization for acute CVA per H&P. Pt is medically stable to discharge. Pt has been denied to go to inpt rehab by insurance, but insurance has authorized SNF placement. UR Specialist faxed orders and created packet. [facility] arranged transport for 1300. SW updated pt and son Curt at bedside. RN,UC,pt/family, and [facility] all updated and agreeable to plan. Assessment:Pt who would benefit from SNF. Plan:Pt to discharge to [facility] today via cabulance at 1300. Insurance authorization has been obtained. RN,UC,pt/family, and [facility] all updated and agreeable to plan. LALITA Macias
--- NOTE | 2016-08-20 14:36 | NUR ---
Discharge Patient departed unit via wheelchair, accompanied by [facility] transporter. Patient alert and oriented at time of discharge, but unhappy that it took so many days to find placement and that his AM discharge was pushed back due to [facility] being unable to come earlier. Prior to discharge, patient did not display any signs of swallowing difficulties or aspiration. Mobility remains difficult with patient reporting double vision, Lt foot drop and Lt leg weakness, secondary to TIA residual. Patient able to communicate without difficulty, nutritional intake good and mood stable. Patient not using a CPAP, however, there is no signs of hypoxia, shortness of breath and patient to follow up outpatient for sleep study. Discharge instructions/medications reviewed with patient prior to discharge. All questions addressed. Patient belongings, discharge paperwork in hand for transfer to [facility]. Report called to Suzi in admissions.
--- NOTE | 2016-08-20 17:38 | PCM.DC.MED ---
Discharge Summary Date of Service Aug 20, 2016 Dates of Hospitalization Date of Hospital Admission Aug 06, 2016 at 17:50 Date of Discharge: Aug 20, 2016 Providers: Admitting Physician: Senait Adkins MD Primary Care Physician: Servando Rodriguez MD Attending Physician: Senait Adkins MD Diagnosis at Time of Discharge Diagnosis at Time of Discharge Possible TIA vs dysequilibrium, present on admission, improving Persistent hypertension, poa. Improving. Acute Kidney Injury on CKD, stage 4, poa. Improving. Renal Artery Stenosis, Bilateral, poa. Active. Benign Positional Vertigo, poa. Resolved. Hx of Recent CVA Hypothyroidism Diabetes Mellitus, Type II Tobacco Use Disorder Consultations Neurology: Jose Ren MD Nephrology: Kareen Phan MD, Vijay Woodson DO Procedures XRay, CTs & MRIs Date of Service: 08/06/16 1527 PROCEDURE: CT BRAIN WITHOUT CONTRAST ([id number]) INDICATIONS: dizziness, vomiting IMPRESSION: No acute intracranial abnormality. Dictated by: Cassidy Anderson M.D. on 08/06/2016 at 16:26 Date of Service: 08/07/16 1256 PROCEDURE: MRI BRAIN WITHOUT CONTRAST ([id number]) INDICATIONS: Stroke IMPRESSION: The medial aspect of the left cerebellar peduncle shows a small 8 x 9 mm area of acute or subacute ischemic injury without mass effect or hemorrhage. This presumably is a manifestation of microvascular atherosclerotic change. Dictated by: Tobin Rosenberg M.D. on 08/07/2016 at 15:44 Other Diagnostics Date of Service: 08/08/16 0500 PROCEDURE: US RENAL WITH ARTERIES DUPLEX DOPPLER SONOGRAM, LIMITED INDICATIONS: uncontrolled HTN, NAKIA IMPRESSION: 1. Tardus parvus waveforms are visualized within the bilateral renal arteries most notably within the hilar regions and the medullary regions consistent with bilateral renal artery stenosis. Dictated by: Eliane Farnsworth M.D. on 08/08/2016 at 12:05 Brief History 60 year old male with a PMH significant for hypertension, CAD s/p 4 stents, PVD , bilateral carotid stenosis, and prior CVA presents with left sided weakness and 24h of ongoing dizziness with N/V. Pt states that he was feeling alright until he had a bm and arose from the toilet. Upon standing he became dizzy and his left leg was unable to support him and he leans to the left. He states that he also had left arm weakness. He has experienced this in the past with hx of CVA and recent TIA in may 2016, both of which were nearly identical to this presentation. Pt states that he slept through the night and the symptoms resolved. He presents today because the nauseas and vomiting continue and he has not been able to maintain adequate hydration. He denies fever, chills, has chronic diarrhea and hx of dysconjugate gaze. Denies other ROS. Pt has known Carotid stenosis and has not been evaluated yet for intervention. CT of the head was negative for acute bleed; Stroke protocol imaging has been postponed or avoided due to severe kidney impairment, and the patient states that he was suppose to see Dr. Narvaez but couldn't get to the office due to this illness. Pt has chronically elevated troponin, and creatinine is now 3.35 from baseline in the mid-upper 2's, and he has a mild leukocytosis. Hospital Course Patient is a 60-year-old male with history of CVA in 2014 and TIA in 05/2016, diet controlled type II diabetes, hypertension, stage 4 CKD second to DM and smoking who presented to the emergency department with sudden onset of nausea with vomiting, lightheadedness, and disequilibrium. 1. Questionable TIA vs dysequilibrium, present on admission, improving - Pt presents with complaint of left sided weakness that has mostly resolved after 24 hours - Pt has known carotid stenosis from US done 05/29/16 - Brain CT shows no hemorrhage, MRI negative for any acute findings - Will D/c patient on Plavix 75 mg daily - Will D/C when placement available 2. Hypertension, poa. Improving. 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 Stent not indicated - Will d/c patient on chlorthalidone 25mg daily, labetalol 100mg BID, Nifedipine ER 60mg daily, spironolactone 50mg BID as recommended by Lead Military Analyst. 3. Acute Kidney Injury on CKD, poa. Stable. - Baseline creatinine is approximately 2.5 - Cr has stabilized in mid 3's, continue to monitor awaiting SNF placement. - This is likely sequela of severe hypertension, assumed to be new baseline. -Patient now is likely CKD stage 4 baseline 4. Renal Artery Stenosis, Bilateral, poa. Active. - As evidenced by US findings during this admission - This is likely the cause of pts significant BP elevation - No stenting required for this after interventional procedure by Dr. Vernon - Nephrology will sign off and recommends outpatient follow up in 1 month. 5. Benign Positional Vertigo, poa. Resolved. - Continue Meclizine PRN 6. Hx of Recent CVA - Continue Aspirin - Continue Plavix - Pt has known carotid stenosis but has not yet had any intervention for this 7. Hypothyroidism - TSH 129, T4 0.86. Recheck TSH 119. -Will increase LT4 to 224mcg daily. -Consider endocrinology outpatient workup if TSH remains extremely high 8. Diabetes Mellitus, Type II - Well controlled - Continue checking FSBS q AC and HS - Continue low-dose SSI 9. Tobacco Use Disorder - Nicotine Patch he would like additional nicotine patch prescription on discharge - Pt counseled to quit smoking Disposition: will likely be discharge tomorrow to SNF pending approval. Exam Vital Signs (Last) Date Time Temp Pulse Resp B/P Pulse Ox O2 Delivery O2 Flow Rate FiO2 08/20/16 05:03 36.6 59 18 148/77 96 Room Air Test 08/06/16 13:40 08/06/16 13:46 08/06/16 23:59 08/07/16 06:07 Magnesium Level 1.9mg/dL (1.6-2.6) Hemoglobin A1c 7.3% (4.8-5.6) Troponin T 0.017ug/L (0.0-0.011) Prothrombin Time 9.6sec (8.1-12.5) Prothromb Time International Ratio 0.90ratio Lactic Acid Level 1.1mmol/L (0.4-2.0) Total Bilirubin 0.2mg/dL (0.0-1.2) Aspartate Amino Transf (AST/SGOT) 15U/L (0-50) Alanine Aminotransferase (ALT/SGPT) 23U/L (0-44) Alkaline Phosphatase 73U/L (25-160) Procalcitonin < 0.05ng/mL (See Comment) Test 08/08/16 06:20 08/12/16 06:05 08/13/16 06:28 08/18/16 06:35 Vitamin D 25-Hydroxy 6.3ng/mL (30.0-100.0) Parathyroid Hormone (Intact) 89pg/mL (15-65) Phosphorus Level 4.5mg/dL (2.5-4.9) Uric Acid 8.1mg/dL (2.6-7.2) Total Protein 4.6g/dL (6.0-8.5) Albumin 2.4g/dL (2.9-4.4) Globulin (PEP) 2.2g/dL (2.2-3.9) Albumin/Globulin Ratio 1.1 (0.7-1.7) Irclj-2-Vczifkrag 0.2g/dL (0.0-0.4) Tnfzh-0-Qfpvhdhrf 0.8g/dL (0.4-1.0) Beta Globulins 0.8g/dL (0.7-1.3) Gamma Globulins 0.4g/dL (0.4-1.8) Serum Monoclonal Protein Not observedg/dL Protein Electrophoresis Comment Comment (.) Protein Electrophoresis Interpret Comment (.) White Blood Count 8.0th/mm3 (3.8-10.1) Red Blood Count 4.36mil/mm3 (4.40-5.80) Hemoglobin 11.9g/dL (13.8-17.2) Hematocrit 37.1% (41.0-50.0) Mean Corpuscular Volume 85.1fL (81-100) Mean Corpuscular Hemoglobin 27.3pg (27.0-35.0) Mean Corpuscular Hemoglobin Concent 32.1% (32.0-37.0) Red Cell Distribution Width 14.5% (12.3-15.4) Platelet Count 297bil/L (150-400) Neutrophils (%) (Auto) 62.6% (40-74) Lymphocytes (%) (Auto) 21.9% (14-46) Monocytes (%) (Auto) 9.8% (4-12) Eosinophils (%) (Auto) 4.2% (0-5) Basophils (%) (Auto) 1.1% (0-3) Free Thyroxine 0.86ng/dL (0.82-1.77) Test 08/19/16 05:47 Sodium Level 140mEq/L (134-144) Potassium Level 4.3mEq/L (3.5-5.2) Chloride Level 102mEq/L (97-108) Carbon Dioxide Level 24mmol/L (18-29) Blood Urea Nitrogen 49mg/dL (8-27) Creatinine 3.92mg/dL (0.76-1.27) Estimat Glomerular Filtration Rate 17mL/min (>59) Glucose Level 103mg/dL (60-99) Calcium Level 8.7mg/dL (8.5-10.1) Thyroid Stimulating Hormone (TSH) 115.200uIU/mL (0.450-4.500) Discharge Medications Discharge Medications Aspirin (Aspirin) 325 Mg Tablet 325 MG PO DAILY (Reported) Atorvastatin Calcium (Atorvastatin Calcium) 40 Mg Tablet 40 MG PO HS Prescribed by: SAADIA STUART DO Chlorthalidone (Chlorthalidone) 25 Mg Tablet 25 MG PO DAILY Prescribed by: SAADIA STUART DO Cholecalciferol (Vitamin D3) (Vitamin D) 1,000 Unit Tablet 2,000 UNIT PO DAILY Prescribed by: SAADIA STUART DO Clopidogrel (Clopidogrel) 75 Mg Tablet 75 MG PO DAILY Prescribed by: JOSETTE VIRK DO Labetalol (Labetalol) 100 Mg Tablet 100 MG PO BID Prescribed by: SAADIA STUART DO Labetalol (Labetalol) 200 Mg Tablet 200 MG PO BID Prescribed by: SAADIA STUART DO Levothyroxine (Levothyroxine) 300 Mcg Tablet 225 MCG PO DAILY Prescribed by: RACHELL CRUM DO Nifedipine ER (Adalat CC) 30 Mg Tablet 60 MG PO DAILY Prescribed by: SAADIA STUART DO Spironolactone (Spironolactone) 50 Mg Tablet 50 MG PO BID Prescribed by: SAADIA STUART DO Additional med instructions Chlorthalidone 25mg by mouth daily Nifedipine 60mg by mouth daily Labetalol 300mg by mouth twice daily Spirolactone 50mg by mouth twice daily Vit D 2000IU by mouth daily Followup Plan Disposition: [facility] Discharge Diet: Heart Healthy, Diabetic, Renal Diet Discharge Activity: Other (Patient going to inpatient rehab.) Patient Instructions There are your new medications to control your elevated blood pressure: Chlorthalidone 25mg by mouth daily Nifedipine 60mg by mouth daily Labetalol 300mg by mouth twice daily Spirolactone 50mg by mouth twice daily Your Vit D levels were very low, so we are adding: Vit D 2000IU by mouth daily It is very important that you get an evaluation for possible sleep apnea since this can contribute significantly to your blood pressure. You are to follow up with Dr. Woodson your building code inspector in 3 weeks. Go to ED if you have any sudden onset of headaches, vision changes, dizziness with nausea, vomiting. Follow-up Provider: Vijay Woodson DO Follow-up with PCP in: 3 weeks Provider: Servando Rodriguez MD Follow-up in: 1 week Time spent 35 minutes Attending Statement The patient was seen and examined together with Dr. Crum on 08/20/2016 and I agree with the history, exam and plan as outlined in the note above. copies to: Vijay Woodson DO; Servando Rodriguez MD, Hong D DO Aug 20, 2016 17:38 Kian Gamez MD Aug 21, 2016 10:08
== END 2016-08-20 13:12 | DRG 69 ==
LOC: SED 13:25 → MPC 17:50
PROVIDERS: ADMIT Urology; ATTEND Urology
PROC: B416YZZ Fluoroscopy of Right Renal Artery using Other Contrast (ICD-10-PCS; principal; 2016-08-13)
PROC: B31 Imaging, Upper Arteries, Fluoroscopy (ICD-10-PCS; 2016-08-13)
DX: G45.9 Transient cerebral ischemic attack, unspecified (principal); N17.0 Acute kidney failure with tubular necrosis; N18.4 Chronic kidney disease, stage 4 (severe); I16.1 Hypertensive emergency; I70.1 Atherosclerosis of renal artery; R29.705 NIHSS score 5; Z79.02 Long term (current) use of antithrombotics/antiplatelets; Z86.73 Personal history of transient ischemic attack (TIA), and cerebral infarction without residual deficits; I25.10 Atherosclerotic heart disease of native coronary artery without angina pectoris; Z95.5 Presence of coronary angioplasty implant and graft; R11.2 Nausea with vomiting, unspecified; Z79.82 Long term (current) use of aspirin; E03.9 Hypothyroidism, unspecified; E78.5 Hyperlipidemia, unspecified; I25.2 Old myocardial infarction; I12.9 Hypertensive chronic kidney disease with stage 1 through stage 4 chronic kidney disease, or unspecified chronic kidney disease; E11.22 Type 2 diabetes mellitus with diabetic chronic kidney disease; F17.210 Nicotine dependence, cigarettes, uncomplicated; H81.10 Benign paroxysmal vertigo, unspecified ear; R42 Dizziness and giddiness